=== PATIENT | female | born 1995 | race Caucasian/White ===

== ENCOUNTER → 2016-12-28 | Outpatient (CLI) | payer OTHER ==
--- NOTE | 2016-12-29 07:40 | MR ---
EXAMINATION TYPE: MR ankle LT wo con DATE OF EXAM: 12/28/2016 COMPARISON: Radiograph of the left ankle dated 11/30/2016 HISTORY: Pain and Swelling of Left Ankle x3 months Standard multiplanar, multisequence MRI departmental protocol Multiplanar, multisequence images of the left ankle were acquired. Diffusion weighted imaging was per formed. FINDINGS: LIGAMENTS: There is discontinuity of the anterior talofibular ligament with a small amount of surrounding fluid. The posterior talofibular ligament, calcaneofibular ligament, and deltoid ligam ents are intact. Spring ligament is also intact. Plantar fascia is intact and unremarkable. TENDONS: There is increased thickness, attenuation, and increased amount of surrounding synovial flui d of the flexor hallucis longus and of the peroneal brevis and longus without tear. Remaining tendons of the anterior and posterior and lateral compartments are unremarkable and intact. BONE MARROW: No evidence of bone marrow edema is seen. Vascular groove is noted within the talus. No focal fracture line is identified. Talar dome is maintained. Joint spaces are also maintained. No haseeb dence of dislocation. No evidence of osteochondral defect. No significant degenerative change. SINUS TARSI: Sinus tarsi is unremarkable with fat attenuation centrally. Subtalar joint is also withi n normal limits. SOFT TISSUES: Soft tissue swelling seen on the prior radiographs of 11/30/2016 over the lateral malle olus has resolved. No focal soft tissue swelling is noted. IMPRESSION: 1. Full-thickness tear of the anterior talofibular ligament with small amount of surrounding talotibi al joint fluid. 2. Moderate grade tenosynovitis of the flexor hallucis longus, peroneus brevis, and peroneus longus w ithout tear. 3. No evidence of focal bone marrow edema, fracture, or dislocation. 4. Localized soft tissue swelling over the lateral malleolus has resolved in the interim.
== END | disposition home or self-care (01) ==
LOC: RADMRIMAIN 14:55
PROVIDERS: ATTEND Nurse Practitioner Family
DX: S93.492A Sprain of other ligament of left ankle, initial encounter (principal); M65.872 Other synovitis and tenosynovitis, left ankle and foot

== ENCOUNTER 2020-04-13 | Outpatient (CLI) | payer OTHER ==
--- NOTE | 2020-04-14 07:32 | P.MSEPDOC ---
Presenting Problems - Arrival Data Date of Arrival on Unit: 04/13/20 Time of Arrival on Unit: 15:15 Mode of Transport: Ambulatory - Complaint OB-Reason for Admission/Chief Complaint: Rule Out SROM Comment: Pt states shes been leaking for days. Medical History - Information : 3 Para: 2 Term: 2 : 0 Abortions: Spontaneous or Elective: 0 Number of Living Children: 2 - Gestational Age Gestational Age by ZEINAB (wks/days): 35 Weeks and 4 Days - History Complications: Multiple , Smoker Review of Systems - Review of Systems Constitutional: No problems Breast: No problems ENT: No problems Cardiovascular: No problems Respiratory: No problems Gastrointestinal: No problems Genitourinary: No problems Musculoskeletal: No problems Neurological: No problems Skin: No problems Vital Signs - Temperature Temperature: 97.9 F Temperature Source: Temporal Artery Scan - Pulse Pulse Oximetery Pulse Rate: 82 Pulse Assessment Method: Pulse Oximetry - Respirations Respiratory Rate: 15 Oxygen Delivery Method: Room Air O2 Sat by Pulse Oximetry: 99 - Blood Pressure Right Arm Blood Pressure: 113/74 Blood Pressure Mean: 87 Blood Pressure Source: Automatic Cuff Medical Screen Scoring (Pre) - Cervical Exam Dilation: 1-3 cm = 1 Membranes: Intact - Uterine Contractions Frequency: Scheduled / = 6 Duration: N/A Intensity: N/A - Maternal Vital Signs Maternal Temperature: N/A Maternal Blood Pressure: N/A Signs of Preeclampsia: N/A Maternal Respirations: N/A - Maternal Trauma Maternal Trauma: N/A - Assessment - Baby A Baseline FHR: 135 Heart Rate - NICHD Category: Category I (Normal) = 0 NST: Reactive Position: N/A Station: N/A - Assessment - Baby B Baseline FHR: 130 Heart Rate - NICHD Category: Category I (Normal) = 0 NST: Reactive Position: N/A Station: N/A - Total Score - Baby A Total Score - Baby A: 7 - Total Score - Baby B Total Score - Baby B: 7 - Total Score - Baby C Total Score - Baby C: 7 - Level of Risk - Baby A Level of Risk - Baby A: Medium (6-9) - Level of Risk - Baby B Level of Risk - Baby B: Medium (6-9) - Level of Risk - Baby C Level of Risk - Baby C: Medium (6-9) Physician Notification (Pre) - Physician Notified Physician Notified Date: 04/13/20 Physician Notified Time: 16:19 New Order Received: Yes Disposition - Disposition OB Disposition: Discharge to home Discharge Date: 04/13/20 Discharge Time: 16:30 I agree with the RN Medical Screening Exam: Yes Case reviewed; plan agreed upon as documented in EMR&OBIX.: Yes Diagnosis: FALSE LABOR BEFORE 37 COMPLETED WEEKS OF GEST, THIRD TRI (Patient presented to this hospital with complaints of concern for rupture membranes for many days. She is care is with another physician at [facility] in her records are unavailable to us. Apparently she told the triage nurse reason she came to this hospital because her physician was not "doing anything for her". Evaluation here shows a twin gestation with reactive nonstress tests. Evaluation for rupture membranes was negative. Patient was not found to be in labor. My impression this is a normal twin gestation without evidence of labor or rupture of membranes. Patient was encouraged to follow up with her physician today. She was informed she is always welcome to return to this Hospital however it is in her best interest an optimal care to continue care with the physician who is been providing her with care the entire . Unfortunately that physician does not have admitting privileges to this hospital.)
== END 2020-04-13 16:30 | disposition home or self-care (01) ==
CPT/HCPCS: 59025; 84112; G0463; 99213

== ENCOUNTER 2021-02-04 19:51 | Emergency (ER) | payer OTHER ==
[2021-02-04 20:10] VITALS: RESP 18; TEMP 97.9
--- NOTE | 2021-02-04 21:54 | ED ---
General Adult HPI - General Chief complaint: Vaginal Bleeding Stated complaint: Vaginal Bleeding, Possible Miscarriage Time Seen by Provider: 02/04/21 20:53 Source: patient Mode of arrival: ambulatory - History of Present Illness Initial comments: 25 old female patient presenting to the emergency department today concerned for miscarriage after passing a large blood clot. Patient states she took her Nuva Ring out on [place]. States instead of starting her period like normal she had light spotting which is unusual for her. States tonight she started to have cramping then passed a large blood clot that looked like it might have been placenta. She took a test 1.5 month ago and it was negative, took one today and it was negative. States she is having mild cramping. Having normal amount of bleeding at this time. She is G3, P4 with one twin gestation delivered 9 months ago via . Patient denies any recent rash, fever, chills, cough, shortness of breath, chest pain, nausea, vomiting, diarrhea, constipation, back pain, numbness, tingling, dizziness, weakness, hematuria, dysuria, urinary urgency, urinary frequency, headache, visual changes, or any other complaints. - Related Data Home Medications Medication Instructions Recorded Confirmed Ferrous Sulfate [Iron] 325 mg PO DAILY 04/13/20 04/13/20 Allergies Allergy/AdvReac Type Severity Reaction Status Date / Time topiramate [From Topamax] Allergy Unknown Verified 02/04/21 20:10 Review of Systems ROS Statement: Those systems with pertinent positive or pertinent negative responses have been documented in the HPI. ROS Other: All systems not noted in ROS Statement are negative. Past Medical History Past Medical History: No Reported History History of Any Multi-Drug Resistant Organisms: None Reported Past Surgical History: Section Smoking Status: Current some day smoker Past Alcohol Use History: None Reported Past Drug Use History: Marijuana General Exam General appearance: alert, in no apparent distress, other (This is a well-devel oped, well-nourished adult female in no acute distress.) ENT exam: Present: normal exam, mucous membranes moist Respiratory exam: Present: normal lung sounds bilaterally. Absent: respiratory distress, wheezes, rales, rhonchi, stridor Cardiovascular Exam: Present: normal rhythm, tachycardia, normal heart sounds. Absent: systolic murmur, diastolic murmur, rubs, gallop, clicks Neurological exam: Present: alert, oriented X3, CN II-XII intact Psychiatric exam: Present: normal affect, normal mood Skin exam: Present: warm, dry, intact, normal color. Absent: rash Course Vital Signs 02/04/21 02/04/21 19:59 21:46 Temperature 97.9 F Pulse Rate 125 H 71 Respiratory 18 18 Rate Blood Pressure 121/85 105/80 O2 Sat by Pulse 99 95 Oximetry Medical Decision Making - Medical Decision Making 25 year-old female patient presenting after passing what appeared to be tissue from her vagina. Period was meant to started 3 days ago. Physical examination is unremarkable. Labs reviewed and showed negative hcg result. Patient reports bleeding is back to normal. She is instructed to continue nuva ring as directed. Follow up with gynecology as soon as possible. Return parameters were discussed in detail. She verbalizes understanding and agrees with this plan. My attending is Dr. Patterson. - Lab Data Result diagrams: 02/04/21 21:46 02/04/21 21:46 Lab Results 02/04/21 02/04/21 02/04/21 Range/Units 21:46 21:46 21:46 WBC 9.4 (3.8-10.6) k/uL RBC 4.77 (3.80-5.40) m/uL Hgb 13.5 (11.4-16.0) gm/dL Hct 41.5 (34.0-46.0) % MCV 86.9 (80.0-100.0) fL MCH 28.3 (25.0-35.0) pg MCHC 32.5 (31.0-37.0) g/dL RDW 13.9 (11.5-15.5) % Plt Count 307 (150-450) k/uL MPV 7.6 Neutrophils % 65 % Lymphocytes % 26 % Monocytes % 4 % Eosinophils % 3 % Basophils % 1 % Neutrophils # 6.1 (1.3-7.7) k/uL Lymphocytes # 2.5 (1.0-4.8) k/uL Monocytes # 0.4 (0-1.0) k/uL Eosinophils # 0.2 (0-0.7) k/uL Basophils # 0.1 (0-0.2) k/uL Sodium 140 (137-145) mmol/L Potassium 4.0 (3.5-5.1) mmol/L Chloride 107 (98-107) mmol/L Carbon Dioxide 23 (22-30) mmol/L Anion Gap 10 mmol/L BUN 14 (7-17) mg/dL Creatinine 0.75 (0.52-1.04) mg/dL Est GFR (CKD-EPI)AfAm >90 (>60 ml/min/1.73 sqM) Est GFR (CKD-EPI)NonAf >90 (>60 ml/min/1.73 sqM) Glucose 110 H (74-99) mg/dL Calcium 9.4 (8.4-10.2) mg/dL Total Bilirubin 0.2 (0.2-1.3) mg/dL AST 19 (14-36) U/L ALT 16 (4-34) U/L Alkaline Phosphatase 71 (38-126) U/L Total Protein 7.0 (6.3-8.2) g/dL Albumin 3.9 (3.5-5.0) g/dL HCG, Quant <2.4 mIU/mL Urine Color Yellow Urine Appearance Clear (Clear) Urine pH 6.0 (5.0-8.0) Ur Specific [place] 1.030 (1.001-1.035) Urine Protein 1+ H (Negative) Urine Glucose (UA) Negative (Negative) Urine Ketones Negative (Negative) Urine Blood Large H (Negative) Urine Nitrite Negative (Negative) Urine Bilirubin Negative (Negative) Urine Urobilinogen <2.0 (<2.0) mg/dL Ur Leukocyte Esterase Moderate H (Negative) Urine RBC >182 H (0-5) /hpf Urine WBC 25 H (0-5) /hpf Urine Mucus Rare H (None) /hpf Disposition Clinical Impression: Vaginal bleeding Disposition: HOME SELF-CARE Condition: Good Instructions (If sedation given, give patient instructions): Dysmenorrhea (ED) Additional Instructions: Follow up with gynecology for further evaluation as soon as possible. Return for any new, worsening, or concerning symptoms. Is patient prescribed a controlled substance at d/c from ED?: No Referrals: None,Stated [REFERRING] - 1-2 days Flores Ngo MD [REFERRING] - 1-2 days Time of Disposition: 22:31
[2021-02-04 21:56] LABS: Basophils # (A) 0.1 k/uL (0-0.2); Basophils % (A) 1 %; Eosinophils # (A) 0.2 k/uL (0-0.7); Eosinophils % (A) 3 %; HCT 41.5 % (34.0-46.0); HGB 13.5 gm/dL (11.4-16.0); Lymphocytes # (A) 2.5 k/uL (1.0-4.8); Lymphocytes % (A) 26 %; MCH 28.3 pg (25.0-35.0); MCHC 32.5 g/dL (31.0-37.0); MCV 86.9 fL (80.0-100.0); Mean Platelet Volume 7.6; Monocytes # (A) 0.4 k/uL (0-1.0); Monocytes % (A) 4 %; Neutrophils # (A) 6.1 k/uL (1.3-7.7); Neutrophils % (A) 65 %; Platelet Count 307 k/uL (150-450); RBC 4.77 m/uL (3.80-5.40); RDW 13.9 % (11.5-15.5); WBC 9.4 k/uL (3.8-10.6)
[2021-02-04 22:07] LABS: ALT 16 U/L (4-34); AST 19 U/L (14-36); African American GFR (CKD) >90 (>60 ml/min/1.73 sqM); Albumin 3.9 g/dL (3.5-5.0); Alkaline Phosphatase 71 U/L (38-126); Anion Gap 10 mmol/L; Blood Urea Nitrogen 14 mg/dL (7-17); Calcium 9.4 mg/dL (8.4-10.2); Carbon Dioxide 23 mmol/L (22-30); Chloride 107 mmol/L (98-107); Glucose 110 mg/dL (74-99); Non-African American GFR(CKD) >90 (>60 ml/min/1.73 sqM); Sodium 140 mmol/L (137-145); Total Bilirubin 0.2 mg/dL (0.2-1.3)
[2021-02-04 22:09] LABS: Appearance,Urine Clear (Clear); Bilirubin,Urine Negative (Negative); Blood,Urine Large (Negative); Color,Urine Yellow; Glucose,Urine (UA) Negative (Negative); Ketones,Urine Negative (Negative); Leukocyte Esterase,Urine Moderate (Negative); Mucus,Urine Rare /hpf; Nitrite,Urine Negative (Negative); Protein,Urine 1+ (Negative); RBC,Urine >182 /hpf (0-5); Urobilinogen,Urine <2.0 mg/dL (<2.0); WBC,Urine 25 /hpf (0-5)
[2021-02-04 22:26] LABS: HCG,Quantitative Serum <2.4 mIU/mL
[2021-02-04 23:03] VITALS: BP 123/86; PULSE 84
== END 2021-02-04 23:03 | disposition home or self-care (01) ==
LOC: EC 19:51
DX: N93.9 Abnormal uterine and vaginal bleeding, unspecified (principal); F17.200 Nicotine dependence, unspecified, uncomplicated; F12.90 Cannabis use, unspecified, uncomplicated
CPT/HCPCS: 36415; 80053; 81001; 84702; 85025; 87086; 99284

== ENCOUNTER 2021-02-20 21:21 | Emergency (ER) | payer OTHER ==
[2021-02-20 21:32] VITALS: BP 120/82; PULSE 96; RESP 18; TEMP 98
[2021-02-20 22:18] LABS: Basophils # (A) 0.1 k/uL (0-0.2); Basophils % (A) 1 %; Eosinophils # (A) 0.2 k/uL (0-0.7); Eosinophils % (A) 1 %; HCT 37.7 % (34.0-46.0); HGB 12.3 gm/dL (11.4-16.0); Lymphocytes # (A) 3.2 k/uL (1.0-4.8); Lymphocytes % (A) 22 %; MCHC 32.7 g/dL (31.0-37.0); MCV 85.5 fL (80.0-100.0); Mean Platelet Volume 7.3; Monocytes # (A) 0.6 k/uL (0-1.0); Monocytes % (A) 4 %; Neutrophils # (A) 10.1 k/uL (1.3-7.7); Neutrophils % (A) 70 %; Platelet Count 264 k/uL (150-450); RBC 4.41 m/uL (3.80-5.40); RDW 13.9 % (11.5-15.5); WBC 14.3 k/uL (3.8-10.6)
[2021-02-20 22:30] LABS: INR 0.9 (<1.2); Partial Thromboplastin Time 23.2 sec (22.0-30.0); Prothrombin Time 9.9 sec (9.0-12.0)
[2021-02-20 22:31] LABS: ALT 14 U/L (4-34); AST 16 U/L (14-36); African American GFR (CKD) >90 (>60 ml/min/1.73 sqM); Alkaline Phosphatase 73 U/L (38-126); Anion Gap 7 mmol/L; Blood Urea Nitrogen 18 mg/dL (7-17); Calcium 9.4 mg/dL (8.4-10.2); Carbon Dioxide 24 mmol/L (22-30); Chloride 106 mmol/L (98-107); Glucose 94 mg/dL (74-99); Non-African American GFR(CKD) >90 (>60 ml/min/1.73 sqM); Potassium 4.1 mmol/L (3.5-5.1); Sodium 137 mmol/L (137-145); Total Bilirubin 0.3 mg/dL (0.2-1.3); Total Protein 6.9 g/dL (6.3-8.2)
--- NOTE | 2021-02-20 22:38 | ED ---
GI Bleed HPI - General Chief complaint: GI Bleed Stated complaint: Rectal Bleeding,Black Stools Time Seen by Provider: 02/20/21 21:37 Source: patient Mode of arrival: ambulatory Limitations: no limitations - History of Present Illness Initial comments: 25 year-old female patient presents to the emergency department today for evaluation of rectal bleeding. States that throughout the day today when she wiped she would notice bright red blood on the toilet paper. States with her initial episode she did have a few drops in the toilet. States that this evening she had a dark stool and was instructed by friends that she should come in for evaluation. She works chronic left upper quadrant abdominal pain. States this is not new. She denies any vomiting. She does take iron tablets for history of anemia. She denies taking any Pepto-Bismol or any other medications. Denies chance of . Denies history of hemorrhoids or GI bleed. Denies frequent use of NSAIDs. Denies any alcohol use. - Related Data Home Medications Medication Instructions Recorded Confirmed Cetirizine HCl 10 mg PO DAILY PRN 02/20/21 02/20/21 Cyclobenzaprine [Flexeril] 10 mg PO HS PRN 02/20/21 02/20/21 Propranolol LA [Inderal LA] 60 mg PO DAILY 02/20/21 02/20/21 Previous Rx's Medication Instructions Recorded Pantoprazole Sodium [Protonix] 40 mg PO DAILY #30 tab 02/20/21 Allergies Allergy/AdvReac Type Severity Reaction Status Date / Time topiramate [From Topamax] Allergy Unknown Verified 02/20/21 21:47 Review of Systems ROS Statement: Those systems with pertinent positive or pertinent negative responses have been documented in the HPI. ROS Other: All systems not noted in ROS Statement are negative. Past Medical History Past Medical History: No Reported History History of Any Multi-Drug Resistant Organisms: None Reported Past Surgical History: Section Past Psychological History: No Psychological Hx Reported Smoking Status: Current some day smoker Past Alcohol Use History: None Reported Past Drug Use History: Marijuana General Exam Limitations: no limitations General appearance: alert, in no apparent distress, other (This is a well- developed, well-nourished adult female in no acute distress.) ENT exam: Present: normal exam, normal oropharynx, mucous membranes moist Respiratory exam: Present: normal lung sounds bilaterally. Absent: respiratory distress, wheezes, rales, rhonchi, stridor Cardiovascular Exam: Present: regular rate, normal rhythm, normal heart sounds. Absent: systolic murmur, diastolic murmur, rubs, gallop, clicks GI/Abdominal exam: Present: soft, normal bowel sounds. Absent: distended, tenderness, guarding, rebound, rigid Rectal exam: Present: hemorrhoids (One small hemorrhoid noted, no inflammation.) Neurological exam: Present: alert, oriented X3, CN II-XII intact Psychiatric exam: Present: normal affect, normal mood Skin exam: Present: warm, dry, intact, normal color. Absent: rash Course Vital Signs 02/20/21 21:28 Temperature 98.0 F Pulse Rate 96 Respiratory 18 Rate Blood Pressure 120/82 O2 Sat by Pulse 98 Oximetry Medical Decision Making - Medical Decision Making 25 year-old female patient presented to the emergency department for evaluation of GI bleed. Reported a small amount of bright red blood with wiping a few drops in the toilet. No dizziness or weakness. Vital signs are unremarkable. Physical examination did reveal small hemorrhoid which was not inflamed. Did perform stool occult which was positive. She'll be started on Protonix for possibility of ulcer. She states instructed follow up with GI specialist for further evaluation. Return parameters were discussed in detail. She verbalizes understanding and agrees with this plan. My attending is Dr. Dash. - Lab Data Result diagrams: 02/20/21 22:03 02/20/21 22:03 Lab Results 02/20/21 02/20/21 02/20/21 Range/Units 22:03 22:03 22:03 WBC 14.3 H (3.8-10.6) k/uL RBC 4.41 (3.80-5.40) m/uL Hgb 12.3 (11.4-16.0) gm/dL Hct 37.7 (34.0-46.0) % MCV 85.5 (80.0-100.0) fL MCH 28.0 (25.0-35.0) pg MCHC 32.7 (31.0-37.0) g/dL RDW 13.9 (11.5-15.5) % Plt Count 264 (150-450) k/uL MPV 7.3 Neutrophils % 70 % Lymphocytes % 22 % Monocytes % 4 % Eosinophils % 1 % Basophils % 1 % Neutrophils # 10.1 H (1.3-7.7) k/uL Lymphocytes # 3.2 (1.0-4.8) k/uL Monocytes # 0.6 (0-1.0) k/uL Eosinophils # 0.2 (0-0.7) k/uL Basophils # 0.1 (0-0.2) k/uL PT 9.9 (9.0-12.0) sec INR 0.9 (<1.2) APTT 23.2 (22.0-30.0) sec Sodium (137-145) mmol/L Potassium (3.5-5.1) mmol/L Chloride (98-107) mmol/L Carbon Dioxide (22-30) mmol/L Anion Gap mmol/L BUN (7-17) mg/dL Creatinine (0.52-1.04) mg/dL Est GFR (CKD-EPI)AfAm (>60 ml/min/1.73 sqM) Est GFR (CKD-EPI)NonAf (>60 ml/min/1.73 sqM) Glucose (74-99) mg/dL Calcium (8.4-10.2) mg/dL Total Bilirubin (0.2-1.3) mg/dL AST (14-36) U/L ALT (4-34) U/L Alkaline Phosphatase (38-126) U/L Total Protein (6.3-8.2) g/dL Albumin (3.5-5.0) g/dL Stool Occult Blood Positive H (Negative) 02/20/21 Range/Units 22:03 WBC (3.8-10.6) k/uL RBC (3.80-5.40) m/uL Hgb (11.4-16.0) gm/dL Hct (34.0-46.0) % MCV (80.0-100.0) fL MCH (25.0-35.0) pg MCHC (31.0-37.0) g/dL RDW (11.5-15.5) % Plt Count (150-450) k/uL MPV Neutrophils % % Lymphocytes % % Monocytes % % Eosinophils % % Basophils % % Neutrophils # (1.3-7.7) k/uL Lymphocytes # (1.0-4.8) k/uL Monocytes # (0-1.0) k/uL Eosinophils # (0-0.7) k/uL Basophils # (0-0.2) k/uL PT (9.0-12.0) sec INR (<1.2) APTT (22.0-30.0) sec Sodium 137 (137-145) mmol/L Potassium 4.1 (3.5-5.1) mmol/L Chloride 106 (98-107) mmol/L Carbon Dioxide 24 (22-30) mmol/L Anion Gap 7 mmol/L BUN 18 H (7-17) mg/dL Creatinine 0.82 (0.52-1.04) mg/dL Est GFR (CKD-EPI)AfAm >90 (>60 ml/min/1.73 sqM) Est GFR (CKD-EPI)NonAf >90 (>60 ml/min/1.73 sqM) Glucose 94 (74-99) mg/dL Calcium 9.4 (8.4-10.2) mg/dL Total Bilirubin 0.3 (0.2-1.3) mg/dL AST 16 (14-36) U/L ALT 14 (4-34) U/L Alkaline Phosphatase 73 (38-126) U/L Total Protein 6.9 (6.3-8.2) g/dL Albumin 4.0 (3.5-5.0) g/dL Stool Occult Blood (Negative) Disposition Clinical Impression: GI bleed, Hemorrhoid Disposition: HOME SELF-CARE Condition: Good Instructions (If sedation given, give patient instructions): Gastrointestinal Bleeding (ED) Additional Instructions: Take medications as directed. Follow-up with the GI specialist for further evaluation as soon as possible. Return to the emergency department for any new, worsening, or concerning symptoms. Prescriptions: Pantoprazole Sodium [Protonix] 40 mg PO DAILY #30 tab Is patient prescribed a controlled substance at d/c from ED?: No Referrals: Sadaf Arreola MD [STAFF PHYSICIAN] - 1-2 days Time of Disposition: 22:38
== END 2021-02-20 22:43 | disposition home or self-care (01) ==
LOC: EC 21:21
DX: K64.9 Unspecified hemorrhoids (principal); F17.200 Nicotine dependence, unspecified, uncomplicated; F12.90 Cannabis use, unspecified, uncomplicated
CPT/HCPCS: 36415; 80053; 82272; 85025; 85610; 85730; 99284

== ENCOUNTER 2021-02-23 17:34 | Emergency (ER) | payer OTHER ==
[2021-02-23 17:50] VITALS: BP 131/75; PULSE 102; RESP 18; TEMP 99.5
[2021-02-23] MEDS ORDERED: KETOROLAC 15 MG/ML 1 ML VIAL IM STA (20:14)
--- NOTE | 2021-02-23 20:24 | ED ---
General Adult HPI - General Chief complaint: ENT Stated complaint: Sore throat,Blood in stool Time Seen by Provider: 02/23/21 19:45 Source: patient Mode of arrival: ambulatory Limitations: no limitations - History of Present Illness Initial comments: Vicky is a 25yo female who presents to the ER for re-evaluation of sore throat and dark stools. Patient was seen last week for dark stools, she was guiaic positive but had normal vital signs and normal hemoglobin. She was referred to out patient GI but reports that our GI does not take our insurance and she see her primary care provider until April so she wasn't sure what she was posted about follow-up. In addition the patient reports she was seen in an outside hospital 2 days ago and diagnosed with strep throat, she was prescribed amoxicillin which she began taking yesterday. She states that she still has a sore throat. She has tried cough drops without taken any Tylenol or Motrin. She hasn't tried warm teaser honey. She states that her throat just hurts she doesn't want to eat or drink. - Related Data Home Medications Medication Instructions Recorded Confirmed Cetirizine HCl 10 mg PO DAILY PRN 02/20/21 02/20/21 Cyclobenzaprine [Flexeril] 10 mg PO HS PRN 02/20/21 02/20/21 Propranolol LA [Inderal LA] 60 mg PO DAILY 02/20/21 02/20/21 Previous Rx's Medication Instructions Recorded Pantoprazole Sodium [Protonix] 40 mg PO DAILY #30 tab 02/20/21 Allergies Allergy/AdvReac Type Severity Reaction Status Date / Time topiramate [From Topamax] Allergy Unknown Verified 02/23/21 17:50 Review of Systems ROS Statement: Those systems with pertinent positive or pertinent negative responses have been documented in the HPI. ROS Other: All systems not noted in ROS Statement are negative. Past Medical History Past Medical History: No Reported History History of Any Multi-Drug Resistant Organisms: None Reported Past Surgical History: Section Past Psychological History: No Psychological Hx Reported Smoking Status: Current some day smoker Past Alcohol Use History: None Reported Past Drug Use History: Marijuana General Exam - General Exam Comments Initial Comments: Physical Exam GENERAL: Patient is well-developed and well-nourished. Patient is nontoxic and well-hydrated and is in no distress. HENT: Normocephalic, Atraumatic. Tonsils are erythematous and enlarged bilaterally, there is no uvula deviation or signs of peritonsillar abscess Exudates are noted bilaterally EYES: PERRL, EOMI PULMONARY: Unlabored respirations. CARDIOVASCULAR: RRR Warm and well perfused extremities ABDOMEN: Non-distended SKIN: No rashes or bruising : Rectal exam with small external hermorrhoids Stool is light brown NEUROLOGIC: Alert and oriented Normal speech Normal gait MUSCULOSKELETAL: Moving all extremities with no apparent injury PSYCHIATRIC: No SI/HI Limitations: no limitations Course Vital Signs 02/23/21 17:43 Temperature 99.5 F Pulse Rate 102 H Respiratory 18 Rate Blood Pressure 131/75 O2 Sat by Pulse 97 Oximetry Medical Decision Making - Medical Decision Making Patient was seen and evaluated history is obtained from patient, I discussed with the patient that she needs outpatient GI follow-up if she is having persistent dark stools, she can contact her insurance provider and asked for list of GI specialist to take her insurance At this time I'm not concerned about the patient's degree of blood loss, her stool on exam is light brown Isabelle she is not hypotensive, she's not pale she appears quite well her hemoglobin the other day was 13. She reports only scant blood with wiping but is concerned because she feels her stools are dark. Patient currently has strep throat, she is less than 48 hours of antibiotic use. Exam is consistent with strep throat, there is no evidence of peritonsillar abscess. Additional supportive care measures including Tylenol, Motrin, throat spray and honey were discussed. Patient be treated with Decadron and Toradol here in the ER discharge home. Disposition Clinical Impression: Strep throat, Occult GI bleeding Disposition: HOME SELF-CARE Condition: Stable Additional Instructions: Continue your oral antibiotics as prescribed for treatment of strep throat Drink warm tea with honey as this can soothe your throat and honey has antibacterial properties Use throat spray such as chloraseptic for numbing the throat Take tylenol/motrin for pain/fever Contact your health insurance provider and request a list of GI specialists who accept your insurance to establish follow up Is patient prescribed a controlled substance at d/c from ED?: No Referrals: Migue Stafford MD [Primary Care Provider] - 1-2 days
[2021-02-23] MEDS ORDERED: DEXAMETHASONE SOD PHOSPHATE 10 MG/ML 1 ML VIAL IM STA (20:46)
== END 2021-02-23 21:03 | disposition home or self-care (01) ==
LOC: EC 17:34
DX: J02.0 Streptococcal pharyngitis (principal); K92.1 Melena; F17.200 Nicotine dependence, unspecified, uncomplicated; F12.920 Cannabis use, unspecified with intoxication, uncomplicated
CPT/HCPCS: 99284; 96372; J1885

== ENCOUNTER 2021-02-24 09:47 | Observation (INO) | payer OTHER ==
[2021-02-24] MEDS ORDERED: SODIUM CHLORIDE 0.9% 1,000 ML IV STA (10:18)
[2021-02-24] MEDS ORDERED: DEXAMETHASONE SOD PHOSPHATE 10 MG/ML 1 ML VIAL IVP STA (10:22)
[2021-02-24] MEDS ORDERED: ACETAMINOPHEN TAB 500 MG TAB PO STA (10:26)
--- NOTE | 2021-02-24 10:31 | ED ---
General Adult HPI - General Chief complaint: ENT Stated complaint: Revisit/ENT Time Seen by Provider: 02/24/21 10:01 Source: patient, RN notes reviewed Mode of arrival: ambulatory Limitations: no limitations - History of Present Illness Initial comments: This is a pleasant 25-year-old female who comes back in for reevaluation of a sore throat. Patient was seen here yesterday and stated that she was having a difficult time swallowing due to strep throat. Patient ended up going to [facility] had a computed tomography scan done of her neck. This was last night. She states she was discharged from the emergency department this morning. She states that they found a pocket of pus in her throat. She was diagnosed with a peritonsillar abscess and given follow-up with your nose and throat. However she called the ENT doctor today and could not get in. Patient presents back to the emergency department. She does state that she got IV antibiotics in the ER. Her yesterday for blood in the stool. Patient had a positive Hemoccult. However hemoglobin was stable and vital signs are stable. Patient denies any chest pain or shortness breath. No abdominal pain. Patient no longer complaining of abnormal stools today. Denies any changes in vision or hearing. No syncope. No lightheadedness. No chance of . No problems with urination. No nausea or vomiting. - Related Data Home Medications Medication Instructions Recorded Confirmed Cetirizine HCl 10 mg PO DAILY PRN 02/20/21 02/20/21 Cyclobenzaprine [Flexeril] 10 mg PO HS PRN 02/20/21 02/20/21 Propranolol LA [Inderal LA] 60 mg PO DAILY 02/20/21 02/20/21 Previous Rx's Medication Instructions Recorded Pantoprazole Sodium [Protonix] 40 mg PO DAILY #30 tab 02/20/21 Allergies Allergy/AdvReac Type Severity Reaction Status Date / Time topiramate [From Topamax] Allergy Unknown Verified 02/24/21 09:55 Review of Systems ROS Statement: Those systems with pertinent positive or pertinent negative responses have been documented in the HPI. ROS Other: All systems not noted in ROS Statement are negative. Past Medical History Past Medical History: No Reported History History of Any Multi-Drug Resistant Organisms: None Reported Past Surgical History: Section Past Psychological History: No Psychological Hx Reported Smoking Status: Current some day smoker Past Alcohol Use History: None Reported Past Drug Use History: Marijuana General Exam Limitations: no limitations General appearance: alert, in distress Head exam: Present: atraumatic, normocephalic, normal inspection Eye exam: Present: normal appearance, PERRL, EOMI. Absent: scleral icterus, conjunctival injection, periorbital swelling ENT exam: Present: normal exam, mucous membranes moist, TM's normal bilaterally, normal external ear exam Expanded Mouth exam: Present: normal external inspection. Absent: drooling, trismus, muffled voice, tongue normal, tongue elevation Teeth exam: Present: normal inspection Throat exam: tonsillar erythema, tonsillomegaly, other (Uvula is midline, no definitive evidence of peritonsillar abscess. Airway is patent). negative: tonsillar exudate, R peritonsillar mass, L peritonsillar mass Neck exam: Present: normal inspection, full ROM, lymphadenopathy. Absent: tenderness, meningismus Respiratory exam: Present: normal lung sounds bilaterally. Absent: respiratory distress, wheezes, rales, rhonchi, stridor Cardiovascular Exam: Present: regular rate, normal rhythm, normal heart sounds. Absent: systolic murmur, diastolic murmur, rubs, gallop, clicks GI/Abdominal exam: Present: soft, normal bowel sounds. Absent: distended, tenderness, guarding, rebound, rigid Extremities exam: Present: normal inspection, full ROM, normal capillary refill. Absent: tenderness, pedal edema, joint swelling, calf tenderness Back exam: Present: normal inspection Neurological exam: Present: alert, oriented X3, CN II-XII intact Psychiatric exam: Present: normal affect, normal mood Skin exam: Present: warm, dry, intact, normal color. Absent: rash Course Vital Signs 02/24/21 09:51 Temperature 98.0 F Pulse Rate 106 H Respiratory 18 Rate Blood Pressure 109/67 O2 Sat by Pulse 97 Oximetry Medical Decision Making - Medical Decision Making Case discussed with Dr. quezada who will admit the patient for consultation with ENT. Patient be admitted to observation. Patient received ceftriaxone 2 g IV piggyback here in the ER. She also received dexamethasone 10 mg IV push. COVID-19 testing will be added. Disposition Clinical Impression: Peritonsillar abscess Disposition: ADMITTED IP TO THIS HOSP Condition: Stable Referrals: Migue Stafford MD [Primary Care Provider] - 1-2 days Time of Disposition: 11:32
[2021-02-24] MEDS ORDERED: NALOXONE 0.4 MG/ML 1 ML VIAL IV PRN (11:29)
[2021-02-24] MEDS ORDERED: ONDANSETRON 4 MG/2 ML VIAL IVP PRN (11:29)
[2021-02-24] MEDS ORDERED: MORPHINE SULFATE 4 MG/ML SYRINGE IV PRN (11:29)
[2021-02-24 12:07] LABS: Basophils % (A) 0 %; Eosinophils % (A) 0 %; HCT 35.9 % (34.0-46.0); HGB 12.3 gm/dL (11.4-16.0); Lymphocytes % (A) 10 %; MCH 29.7 pg (25.0-35.0); MCHC 34.4 g/dL (31.0-37.0); MCV 86.5 fL (80.0-100.0); Mean Platelet Volume 7.1; Monocytes # (A) 0.1 k/uL (0-1.0); Monocytes % (A) 1 %; Neutrophils # (A) 9.4 k/uL (1.3-7.7); Neutrophils % (A) 88 %; Platelet Count 267 k/uL (150-450); RBC 4.15 m/uL (3.80-5.40); RDW 14.1 % (11.5-15.5); WBC 10.6 k/uL (3.8-10.6)
[2021-02-24] MEDS ORDERED: HYDROmorphone 0.5 MG/0.5 ML SYRINGE IVP PRN (12:46)
--- NOTE | 2021-02-24 13:38 | CT ---
EXAMINATION TYPE: CT neck chest w con DATE OF EXAM: 02/24/2021 COMPARISON: NONE HISTORY: Left peritonsillar abscess. Shortness of breath. CT DLP: 1068.1 mGycm. Automated Exposure Control for Dose Reduction was Utilized. TECHNIQUE: CT scan of the neck and thorax are performed following with IV Contrast, patient injected with 100 mL of Isovue 300. FINDINGS: Neck: EXAMINATION TYPE: CT neck chest w con DATE OF EXAM: 02/24/2021 HISTORY: Left peritonsillar abscess. Shortness of breath. COMPARISON: NONE CT DLP: 1068.1 mGycm. Automated Exposure Control for Dose Reduction was Utilized. TECHNIQUE: CT scan of the neck is performed with IV Contrast, patient injected with 100 mL of Isovue 300, axial images are obtained, coronal and sagittal reformatted images are reviewed. FINDINGS: Neck: Airway: Prominence of the adenoid tonsils in the posterior nasopharynx. [place] prominence base of t ongue also present. Increased soft tissue density posterior oral pharynx greater on the left where th ere is central 1.2 cm low-density area could reflect developing abscess axial image 30. Lobulated low dense material fills epiglottis could reflect secretions or laryngeal tonsillar hypertrophy. No well -formed fluid collection or drainable abscess identified. Patent nasopharyngeal airway is seen. Parotid/submandibular glands: Slight lobulated contour and asymmetric enlargement to left submandibul ar gland versus right side. Symmetric fat replaced atrophy of bilateral parotid glands. Carotid/Vascular Structures: No significant plaque or stenosis at carotid bulb level bilaterally. Poo r contrast opacification. Osseous Structures: Straightening of cervical spine. Other: No greater than 1 cm neck adenopathy. Thorax: Poor IV bolus. LUNGS: Elevated right hemidiaphragm and low lung volumes. No suspicious focal consolidation. No pleur al effusion or pneumothorax seen. MEDIASTINUM: There are no greater than 1 cm hilar or mediastinal lymph nodes. No cardiomegaly or pe ricardial effusion is seen. OTHER: No additional significant abnormality is seen. IMPRESSION: Soft tissue prominence consistent with acute tonsillitis, findings greatest left aspect w here there is 1.2 cm low-density area suspicious for ill-defined fluid. No well-formed drainable absc ess currently. Airway remains patent. Lungs are clear.
--- NOTE | 2021-02-24 13:55 | XR ---
EXAMINATION TYPE: XR chest 1V portable DATE OF EXAM: 02/24/2021 COMPARISON: None INDICATION: Pneumonia TECHNIQUE: Single frontal view of the chest is obtained. FINDINGS: The heart size is normal. The pulmonary vasculature is normal. The lungs are clear. IMPRESSION: 1. No acute pulmonary process.
[2021-02-24 14:00] LABS: ALT 20 U/L (4-34); AST 20 U/L (14-36); African American GFR (CKD) >90 (>60 ml/min/1.73 sqM); Albumin 3.6 g/dL (3.5-5.0); Albumin/Globulin Ratio 1.1; Alkaline Phosphatase 83 U/L (38-126); Anion Gap 12 mmol/L; Blood Urea Nitrogen 9 mg/dL (7-17); Calcium 8.5 mg/dL (8.4-10.2); Carbon Dioxide 16 mmol/L (22-30); Chloride 106 mmol/L (98-107); Globulin 3.2 g/dL; Glucose 130 mg/dL (74-99); Non-African American GFR(CKD) >90 (>60 ml/min/1.73 sqM); Potassium 4.1 mmol/L (3.5-5.1); Sodium 134 mmol/L (137-145); Total Bilirubin 0.9 mg/dL (0.2-1.3); Total Protein 6.8 g/dL (6.3-8.2)
[2021-02-24] MEDS: SODIUM CHLORIDE 0.9% 1,000 ML IV SCH ×2 (14:00→20:26)
--- NOTE | 2021-02-24 15:20 | HP ---
HISTORY AND PHYSICAL CHIEF COMPLAINTS: Throat pain as well as difficulty opening mouth and left neck swelling. HISTORY OF PRESENT ILLNESS: This 25-year-old woman with a past medical history of section and no other medical issues, to be followed by Dr. Migue Stafford in the outpatient setting, was complaining of throat pain as well as left-sided neck pain, difficulty in opening her mouth for the past several days. Patient apparently visited several ERs and because of lack of improvement, patient came to [facility] and was admitted for further evaluation and treatment. CBC within normal limits. Patient has possibly a peritonsillar abscess also. PAST MEDICAL HISTORY: No history of cardiovascular illness. MEDICATIONS: Medications prior to admission include Protonix and amoxicillin. ALLERGIES: TOPAMAX. FAMILY HISTORY: No history of heart disease or strokes in the family. SOCIAL HISTORY: History of smoking. History of THC. REVIEW OF SYSTEMS: ENT: As mentioned earlier. CARDIOVASCULAR SYSTEM: No angina, palpitations. RESPIRATORY SYSTEM: As mentioned earlier. GI: As mentioned earlier. : No dysuria. NERVOUS SYSTEM: No numbness, weakness. ALLERGY/IMMUNOLOGY: No asthma or hay fever. MUSCULOSKELETAL: As mentioned earlier. HEMATOLOGY/ONCOLOGY: No history of anemia. ENDOCRINE: No history of diabetes or hypothyroidism. CONSTITUTIONAL: As mentioned earlier. DERMATOLOGY: Negative. RHEUMATOLOGY: Negative. PHYSICAL EXAMINATION: Patient alert and oriented x3. Pulse 106, blood pressure 109/60, respiration 18, temperature 98 degrees, pulse ox 97% on room air. HEENT: Conjunctivae normal. Oral mucosa moist. NECK: No jugular venous distention. No carotid bruit. No lymph node enlargement. CARDIOVASCULAR: S1, S2 muffled. RESPIRATION: Breath sounds diminished at the bases. No rhonchi. No crackles. ABDOMEN: Soft, nontender. LEGS: No edema. No swelling. NERVOUS SYSTEM: No focal deficit. SKIN: No ulcer, rash, bleeding. JOINTS: No active deforming arthropathy. EXAMINATION OF THE MOUTH: Cannot open completely. Some tenderness elicited on the left tonsil area. LABS: CBC within normal limits. Neutrophils are 0.9 and 0.4. ASSESSMENT: 1. Acute peritonsillar abscess, left-sided, with significant difficulties and pain and failure of outpatient treatment. 2. History of nicotine dependence. 3. History of THC. 4. Obesity with body mass index of 36.2. 5. Neutrophilic leukocytosis. RECOMMENDATIONS AND DISCUSSION: In this 25-year-old woman who presented with multiple complex medical issues, we will monitor the patient closely. Will initiate broad-spectrum IV antibiotics. Infectious Disease. Short course of steroids. ENT evaluation. Guarded prognosis because of multiple complex medical issues. Further recommendations to follow. A copy of this dictation is being forwarded to Dr. Stafford, who is going to be the primary physician. MMODL / IJN: [id number] /
[2021-02-24 16:49] LABS: Glucose,Whole Blood 113 mg/dL (75-99)
[2021-02-24] MEDS: INSULIN ASPART (NovoLOG) 100 UNIT/ML VIAL SQ SCH ×2 (20:10→21:00)
[2021-02-24] MEDS: HEPARIN SODIUM,PORCINE/PF 5,000 UNIT/0.5 ML SYRINGE SQ SCH ×2 (20:11→21:19)
[2021-02-24] MEDS: HYDROcodone/APAP 5-325MG 1 EACH TAB PO PRN (20:14)
[2021-02-24] MEDS: AMPICILLIN-SULBACTAM 3 GM in SODIUM CHLORIDE 0.9% 100 ML IVPB SCH ×2 (20:16→23:49)
[2021-02-24] MEDS: DEXAMETHASONE SOD PHOSPHATE 4 MG/ML 1 ML VIAL IVP SCH ×2 (20:17→23:49)
[2021-02-24 20:58] LABS: Glucose,Whole Blood 121 mg/dL (75-99)
--- NOTE | 2021-02-24 23:12 | P.CONS ---
History of Present Illness - Reason for Consult Consult date: 02/24/21 peritonsillar abscess Requesting physician: Lucille Mason - Chief Complaint sore throat x few days - History of Present Illness History of present illness : Patient is a 25-year-old female presenting to the ER for evaluation of sore throat and this patient's symptoms started the day before presentation to the hospital patient complaining of difficulty swallowing for the patient was evaluated at [facility] ER where the patient did have a CT and apparently there is a pocket of pus in her throat he was diagnosed with a peritonsillar abscess and was advised to follow-up with the ENT however the patient presented to the Importantly are concerning for sore throat some difficulty swallowing no difficulty breathing no patient denies having any chest pain no cough or sputum production abdominal pain any diarrhea patient on presentation hospital was afebrile and mildly tachycardic detail normal white count with a left shift kidney function was normal, no PCR was negative urine hCG was negative patient did have a CT of the chest and neck which shows soft tissue prominence consistent with acute tonsillitis findings greatest on the left aspect with small density suspicious for ill-defined fluid no well-formed drainable abscess patient was admitted to the hospital she was given a dose of Rocephin infectious he was consulted for further management of antibiotic therapy Review of system: CONSTITUTIONAL: Positive for weakness along with the fever. EYES: As per history of present illness. ENT: No complaint. RESPIRATORY: No complaint. CARDIOVASCULAR: No complaint. GENITOURINARY: No complaint. GASTROINTESTINAL: No complaint. MUSCULOSKELETAL: No complaint. INTEGUMENTARY: No complaint. PSYCHOLOGIC: No complaint. ENDOCRINE: No complaint. NEUROLOGIC: No complaint. Past medical history : Reviewed, documented below Past surgical history : Reviewed, documented below Social history: Reviewed, documented below Medications: Reviewed, as documented below EXAMINATION: Vital sigans= Reviewed and documented below GENERAL DESCRIPTION: Middle-aged fele lying in bed, no distress. No tachypnea or accessory muscle of respiration use. HEENT: Shows Pallor , no scleral icterus. Oral mucous membrane is moist significant lodgment of the posterior pharyngeal and tonsillar area with some pus points. NECK: Trachea central, no thyromegaly. LUNGS: Unlabored breathing. Clear to auscultation anteriorly. No wheeze or crackle. HEART: S1, S2, regular rate and rhythm. ABDOMEN: Soft, no tenderness , guarding or rigidity EXTREMITIES: No edema of feet. SKIN: No rash, no masses palpable. NEUROLOGICAL: The patient is awake, alert, oriented x3, mood and affect normal. LABS AND RADIOLOGY: Reviewed results see below Assessment : Patient presented to hospital with sore throat some difficulty swallowing and this patient did have evidence of severe tonsillopharyngitis and concern for possible ill defined collection but no drainable abscess will need to cover for the polymicrobial oral karolina usually associated with this type of infection Plan: 1-start the patient on Unasyn 3 g every 6 hours 2-gentle IV fluid We will follow on clinical condition and cultures to further adjust medication if needed Thank you for this consultation we will follow the patient along with you Past Medical History Past Medical History: No Reported History History of Any Multi-Drug Resistant Organisms: None Reported Past Surgical History: Section Past Psychological History: No Psychological Hx Reported Smoking Status: Current some day smoker Past Alcohol Use History: None Reported Past Drug Use History: Marijuana Medications and Allergies Home Medications Medication Instructions Recorded Confirmed Type Pantoprazole Sodium [Protonix] 40 mg PO DAILY #30 tab 02/20/21 02/24/21 Rx Amoxicillin 500 mg PO BID 02/24/21 02/24/21 History Allergies Allergy/AdvReac Type Severity Reaction Status Date / Time topiramate [From Topamax] AdvReac shaky Verified 02/24/21 11:52 Physical Exam Vitals: Vital Signs Temp Pulse Resp BP Pulse Ox 02/24/21 09:51 98.0 F 106 H 18 109/67 97 Intake and Output 02/24/21 02/24/21 02/24/21 06:59 14:59 22:59 Other: Weight 104.78 kg Results CBC & Chem 7: 02/24/21 10:42 02/24/21 13:15 Labs: Abnormal Lab Results - Last 24 Hours (Table) 02/24/21 02/24/21 Range/Units 10:42 13:15 Neutrophils # 9.4 H (1.3-7.7) k/uL Sodium 134 L (137-145) mmol/L Carbon Dioxide 16 L (22-30) mmol/L Glucose 130 H (74-99) mg/dL
[2021-02-25] MEDS: SODIUM CHLORIDE 0.9% 1,000 ML IV SCH ×3 (03:45→19:59)
[2021-02-25] MEDS: AMPICILLIN-SULBACTAM 3 GM in SODIUM CHLORIDE 0.9% 100 ML IVPB SCH ×4 (05:55→23:11)
[2021-02-25] MEDS: DEXAMETHASONE SOD PHOSPHATE 4 MG/ML 1 ML VIAL IVP SCH ×4 (05:55→23:11)
[2021-02-25 08:12] LABS: Glucose,Whole Blood 130 mg/dL (75-99)
[2021-02-25] MEDS: HYDROcodone/APAP 5-325MG 1 EACH TAB PO PRN (08:31)
[2021-02-25] MEDS: INSULIN ASPART (NovoLOG) 100 UNIT/ML VIAL SQ SCH ×3 (08:31→21:13)
[2021-02-25] MEDS: PANTOPRAZOLE 40 MG TABLET PO SCH (08:31)
[2021-02-25] MEDS: HEPARIN SODIUM,PORCINE/PF 5,000 UNIT/0.5 ML SYRINGE SQ SCH ×2 (08:32→21:56)
[2021-02-25 10:38] LABS: Basophils # (A) 0.02 X 10*3/uL (0.00-0.10); Basophils % (A) 0.2 %; Eosinophils # (A) 0 X 10*3/uL (0.04-0.35); Eosinophils % (A) 0 %; HGB 11.3 g/dL (12.0-15.0); Lymphocytes # (A) 1.64 X 10*3/uL (0.90-5.00); Lymphocytes % (A) 13.1 %; MCH 27.4 pg (27.0-32.0); MCHC 31.4 g/dL (32.0-37.0); MCV 87.2 fL (80.0-97.0); Mean Platelet Volume 10.2 fL (9.5-12.2); Monocytes # (A) 0.51 X 10*3/uL (0.20-1.00); Monocytes % (A) 4.1 %; Neutrophils # (A) 10.26 X 10*3/uL (1.80-7.70); Neutrophils % (A) 82.1 %; Platelet Count 331 X 10*3/uL (140-440); RBC 4.13 X 10*6/uL (4.10-5.20); RDW 13.6 % (11.5-14.5); WBC 12.49 X 10*3/uL (4.50-10.00)
[2021-02-25 10:51] LABS: African American GFR (CKD) 138.6 (60.0-200.0); Anion Gap 13.3 mmol/L (10.00-18.00); BUN/Creat Ratio 13.14 Ratio (12.00-20.00); Blood Urea Nitrogen 9.2 mg/dL (9.0-27.0); Calcium 8.5 mg/dL (8.7-10.3); Carbon Dioxide 19.7 mmol/L (20.0-27.5); Non-African American GFR(CKD) 119.6 (60.0-200.0); Potassium 4.2 mmol/L (3.5-5.5)
[2021-02-25 12:17] LABS: Glucose,Whole Blood 120 mg/dL (75-99)
[2021-02-25] MEDS ORDERED: BENZOCAINE SPRAY 1 CAN MUCOUS MEM PRN (14:31)
[2021-02-25] MEDS ORDERED: BENZOCAINE/MENTHOL LOZENG 1 EACH LOZENGE MUCOUS MEM PRN (14:31)
--- NOTE | 2021-02-25 14:31 | P.PN ---
Subjective Progress Note Date: 02/25/21 02/25/2021 Patient evaluated at the bedside, she states that she is still having difficulty following respiratory effort is slightly improved. She feels a lot of the pockets must have popped and she had a foul taste in her mouth earlier today. There is still an abscess that she can feel that is causing her some pain. She is pending a consultation from ENT later this afternoon. ID is recommending one more day of IV antibiotics that she can discharge home tomorrow on orals. She can increase her diet as tolerated today. Blood pressure 104/60, afebrile, heart rate 80, 100% on room air. Abdomen is soft nontender. White count 12.49, blood sugar was 120s. ROS Constitutional: Denied any fatigue denied any fever. Cardio vascular: denied any chest pain, palpitations Gastrointestinal denied any nausea vomiting Pulmonary: Denied any shortness of breath cough Neurologic denied any new focal deficits All inpatient medications were reviewed and appropriate changes in these medications as dictated in the interval history and assessment and plan. PHYSICAL EXAMINATION: GENERAL: The patient is alert and oriented x3, not in any acute distress. Well developed, well nourished. HEENT: Pupils are round and equally reacting to light. EOMI. No scleral icterus. No conjunctival pallor. Normocephalic, atraumatic. No thyromegaly. Tender to palpation along lymphnodes on left. CARDIOVASCULAR: S1 and S2 present. No murmurs, rubs, or gallops. PULMONARY: Chest is clear to auscultation, no wheezing or crackles. ABDOMEN: Soft, nontender, nondistended, normoactive bowel sounds. No palpable organomegaly. MUSCULOSKELETAL: No joint swelling or deformity. EXTREMITIES: No cyanosis, clubbing, or pedal edema. NEUROLOGICAL: Gross neurological examination did not reveal any focal deficits. SKIN: No rashes. Assessment and plan Assessment Acute peritonsillar abscess, left-sided failure outpatient treatment Leukocytosis secondary to above History of nicotine dependence History of THC Obesity Focal Plan ID consultation, ENT consultation Continue IV antibiotics Add lozenges, and benzocaine spray for symptomatic tx a Increase diet as tolerated Repeat CBC in a.m. Discharge tomorrow on oral antibiotics Objective - Vital Signs Vital signs: Vital Signs Temp 98.1 F 02/25/21 07:00 Pulse 80 02/25/21 07:00 Resp 18 02/25/21 07:00 BP 104/60 02/25/21 07:00 Pulse Ox 98 02/25/21 11:29 Intake & Output 02/24/21 02/25/21 02/25/21 18:59 06:59 18:59 Weight 104.78 kg 104.78 kg Other: Voiding Method Toilet # Voids 2 - Labs CBC & Chem 7: 02/25/21 06:50 02/25/21 06:50 Labs: Abnormal Lab Results - Last 24 Hours (Table) 02/24/21 02/24/21 02/25/21 Range/Units 16:46 20:57 06:50 WBC 12.49 H (4.50-10.00) X 10*3/uL Hgb 11.3 L (12.0-15.0) g/dL Hct 36.0 L (37.2-46.3) % MCHC 31.4 L (32.0-37.0) g/dL Immature Gran # 0.06 H (0.00-0.04) X 10*3/uL Neutrophils # 10.26 H (1.80-7.70) X 10*3/uL Eosinophils # 0 L (0.04-0.35) X 10*3/uL Carbon Dioxide (20.0-27.5) mmol/L Glucose (70-110) mg/dL POC Glucose (mg/dL) 113 H 121 H (75-99) mg/dL Calcium (8.7-10.3) mg/dL 02/25/21 02/25/21 02/25/21 Range/Units 06:50 08:10 12:13 WBC (4.50-10.00) X 10*3/uL Hgb (12.0-15.0) g/dL Hct (37.2-46.3) % MCHC (32.0-37.0) g/dL Immature Gran # (0.00-0.04) X 10*3/uL Neutrophils # (1.80-7.70) X 10*3/uL Eosinophils # (0.04-0.35) X 10*3/uL Carbon Dioxide 19.7 L (20.0-27.5) mmol/L Glucose 127 H (70-110) mg/dL POC Glucose (mg/dL) 130 H 120 H (75-99) mg/dL Calcium 8.5 L (8.7-10.3) mg/dL
[2021-02-25 17:27] LABS: Glucose,Whole Blood 152 mg/dL (75-99)
--- NOTE | 2021-02-25 20:01 | P.GSCN ---
History of Present Illness Consult date: 02/25/21 Reason for Consult: Throat pain Requesting physician: Anita Kim History of present illness: This patient is a 25-year-old white female with a 4 day history of a sore throat. She went to the emergency room at [facility] and was diagnosed with tonsillitis and possible peritonsillar abscess. She was to be sent to my office. She left the hospital AMA. She never came to my office. She instead went to the emergency room here at [facility] and was admitted. She been on antibiotics and steroids since admission yesterday. She tells me she is markedly improved and she is swallowing fine. Her throat pain is 90% better. I did review the results of the patient's CAT scan and his no definable abscess. There is an area of cellulitis with possible evolving abscess. This is a very small area measuring only 1.2 cm. This is on the left side. She is eating well drinking well her pain is minimal and she is in good spirits and giggling and happy. She denies any other symptoms. Review of Systems - Constitutional Reports fever - EENT Ears, nose, mouth and throat: Reports swelling in throat - Cardiovascular Reports as per HPI - Respiratory Reports as per HPI - Gastrointestinal Reports as per HPI - Genitourinary Genitourinary: Reports as per HPI Menstruation: Reports as per HPI - Musculoskeletal Reports as per HPI - Integumentary Reports as per HPI - Neurological Reports as per HPI - Psychiatric Reports as per HPI - Endocrine Reports as per HPI - Hematologic/Lymphatic Reports as per HPI - Allergic/Immunologic Reports as per HPI Past Medical History Past Medical History: No Reported History History of Any Multi-Drug Resistant Organisms: None Reported Past Surgical History: Section Past Psychological History: No Psychological Hx Reported Smoking Status: Current some day smoker Past Alcohol Use History: None Reported Past Drug Use History: Marijuana Medications and Allergies Home Medications Medication Instructions Recorded Confirmed Type Pantoprazole Sodium [Protonix] 40 mg PO DAILY #30 tab 02/20/21 02/24/21 Rx Amoxicillin 500 mg PO BID 02/24/21 02/24/21 History Allergies Allergy/AdvReac Type Severity Reaction Status Date / Time topiramate [From Topamax] AdvReac jose raul Verified 02/24/21 11:52 Surgical - Exam Osteopathic Statement: *. No significant issues noted on an osteopathic structural exam other than those noted in the History and Physical/Consult. Vital Signs Temp Pulse Resp BP Pulse Ox 98.0 F 106 H 18 109/67 97 02/24/21 09:51 02/24/21 09:51 02/24/21 09:51 02/24/21 09:51 02/24/21 09:51 - General Mild discomfort well developed, well nourished, obese - Eyes PERRL, normal ocular movement - ENT Left tonsil slightly enlarged and erythematous. No bulging noted no evidence of peritonsillar abscess noted. No deformity of the palate. Left tonsil slightly enlarged. normal pinna, normal nares, normal mucosa, no hearing loss, no congestion - Neck no masses, no bruits, trachea midline thyroid nodule: absent, lymphadenopathy: bilateral (Mild nonspecific), carotid bruit: absent - Respiratory normal expansion, normal respiratory effort - Integumentary no rash, no growths - Neurologic normal coordination, normal sensation - Musculoskeletal normal posture - Psychiatric oriented to time, oriented to person, oriented to place, speech is normal, memory intact Results - Labs 02/25/21 06:50 02/25/21 06:50 Abnormal Lab Results - Last 24 Hours (Table) 02/24/21 02/25/21 02/25/21 Range/Units 20:57 06:50 06:50 WBC 12.49 H (4.50-10.00) X 10*3/uL Hgb 11.3 L (12.0-15.0) g/dL Hct 36.0 L (37.2-46.3) % MCHC 31.4 L (32.0-37.0) g/dL Immature Gran # 0.06 H (0.00-0.04) X 10*3/uL Neutrophils # 10.26 H (1.80-7.70) X 10*3/uL Eosinophils # 0 L (0.04-0.35) X 10*3/uL Carbon Dioxide 19.7 L (20.0-27.5) mmol/L Glucose 127 H (70-110) mg/dL POC Glucose (mg/dL) 121 H (75-99) mg/dL Calcium 8.5 L (8.7-10.3) mg/dL 02/25/21 02/25/21 02/25/21 Range/Units 08:10 12:13 17:14 WBC (4.50-10.00) X 10*3/uL Hgb (12.0-15.0) g/dL Hct (37.2-46.3) % MCHC (32.0-37.0) g/dL Immature Gran # (0.00-0.04) X 10*3/uL Neutrophils # (1.80-7.70) X 10*3/uL Eosinophils # (0.04-0.35) X 10*3/uL Carbon Dioxide (20.0-27.5) mmol/L Glucose (70-110) mg/dL POC Glucose (mg/dL) 130 H 120 H 152 H (75-99) mg/dL Calcium (8.7-10.3) mg/dL Microbiology - Last 24 Hours (Table) 02/24/21 13:15 Blood Culture - Preliminary Blood No Growth after 24 hours Diabetes panel 02/25/21 Range/Units 06:50 Sodium 140 (135-145) mmol/L Potassium 4.2 (3.5-5.5) mmol/L Chloride 107 (96-109) mmol/L Carbon Dioxide 19.7 L (20.0-27.5) mmol/L BUN 9.2 (9.0-27.0) mg/dL Creatinine 0.7 (0.6-1.5) mg/dL Glucose 127 H (70-110) mg/dL Calcium 8.5 L (8.7-10.3) mg/dL Calcium panel 02/25/21 Range/Units 06:50 Calcium 8.5 L (8.7-10.3) mg/dL Pituitary panel 02/25/21 Range/Units 06:50 Sodium 140 (135-145) mmol/L Potassium 4.2 (3.5-5.5) mmol/L Chloride 107 (96-109) mmol/L Carbon Dioxide 19.7 L (20.0-27.5) mmol/L BUN 9.2 (9.0-27.0) mg/dL Creatinine 0.7 (0.6-1.5) mg/dL Glucose 127 H (70-110) mg/dL Calcium 8.5 L (8.7-10.3) mg/dL Adrenal panel 02/25/21 Range/Units 06:50 Sodium 140 (135-145) mmol/L Potassium 4.2 (3.5-5.5) mmol/L Chloride 107 (96-109) mmol/L Carbon Dioxide 19.7 L (20.0-27.5) mmol/L BUN 9.2 (9.0-27.0) mg/dL Creatinine 0.7 (0.6-1.5) mg/dL Glucose 127 H (70-110) mg/dL Calcium 8.5 L (8.7-10.3) mg/dL Assessment and Plan (1) Acute tonsillitis Current Visit: Yes Status: Acute Code(s): J03.90 - ACUTE TONSILLITIS, UNSPECIFIED SNOMED Code(s): 83929288 (2) Peritonsillar cellulitis Current Visit: Yes Status: Acute Code(s): J36 - PERITONSILLAR ABSCESS SNOMED Code(s): 433164576 Plan: This patient developed left side acute tonsillitis with some peritonsillar cellulitis. Over the last 48 hours she is a remarkable improvement in tells me that her pain is reduced by 90%. I reviewed the CAT scan and I do not see definitive abscess I do note a left peritonsillar cellulitis. No surgical procedures necessary. I would continue antibiotic and steroid therapy and continue this as an outpatient after discharge. I've given her my card and she can follow up with me on an as-needed basis. Time with Patient: Greater than 30
[2021-02-25 20:41] LABS: Glucose,Whole Blood 119 mg/dL (75-99)
[2021-02-26] MEDS: SODIUM CHLORIDE 0.9% 1,000 ML IV SCH ×2 (04:10→12:39)
[2021-02-26] MEDS: DEXAMETHASONE SOD PHOSPHATE 4 MG/ML 1 ML VIAL IVP SCH ×2 (06:06→12:44)
[2021-02-26 07:24] LABS: Glucose,Whole Blood 121 mg/dL (75-99)
[2021-02-26 08:05] VITALS: BP 110/70; PULSE 52; RESP 18; TEMP 98.1
--- NOTE | 2021-02-26 10:48 | P.PN ---
Subjective Progress Note Date: 02/25/21 Principal diagnosis: Acute pharyngitis and question of peritonsillar abscess Patient is a 25-year-old female presented to hospital with significant sore throat difficulty swallowing in this patient has been diagnosed with severe pharyngitis and question of peritonsillar abscess. On today's evaluation that is 02/25/2021 the patient denies having any fever or chills the patient sore throat has slightly decreased in intensity but denies having any nausea no vomiting no abdominal pain and no diarrhea Objective - Vital Signs Vital signs: Vital Signs Temp 98.1 F 02/26/21 07:00 Pulse 52 L 02/26/21 07:00 Resp 18 02/26/21 07:00 BP 110/70 02/26/21 07:00 Pulse Ox 98 02/26/21 07:00 Intake & Output 02/25/21 02/26/21 02/26/21 18:59 06:59 18:59 Intake Total 120 Balance 120 Intake: Oral 120 Other: # Voids 1 1 - Exam GENERAL DESCRIPTION: Middle-aged female lying in bed, no distress. No tachypnea or accessory muscle of respiration use. HEENT: Pharyngeal swelling redness no drainage LUNGS: Unlabored breathing. Clear to auscultation anteriorly. No wheeze or crackle. HEART: S1, S2, regular rate and rhythm. No loud murmur ABDOMEN: Soft, no tenderness , guarding or rigidity, no organomegaly EXTREMITIES: No edema of feet. - Labs CBC & Chem 7: 02/25/21 06:50 02/25/21 06:50 Labs: Abnormal Lab Results - Last 24 Hours (Table) 02/25/21 02/25/21 02/25/21 Range/Units 06:50 12:13 17:14 Carbon Dioxide 19.7 L (20.0-27.5) mmol/L Glucose 127 H (70-110) mg/dL POC Glucose (mg/dL) 120 H 152 H (75-99) mg/dL Calcium 8.5 L (8.7-10.3) mg/dL 02/25/21 02/26/21 Range/Units 20:39 07:10 Carbon Dioxide (20.0-27.5) mmol/L Glucose (70-110) mg/dL POC Glucose (mg/dL) 119 H 121 H (75-99) mg/dL Calcium (8.7-10.3) mg/dL Microbiology - Last 24 Hours (Table) 02/24/21 13:15 Blood Culture - Preliminary Blood No Growth after 24 hours Assessment and Plan Assessment: Patient presented to hospital with significant sore throat difficulty swallowing and this patient has been diagnosed with a severe pharyngitis and a question of very tonsillar abscess ENT evaluation is pending, patient to continue with Unasyn in view of clinical response and monitor clinical course closely Time with Patient: Less than 30
--- NOTE | 2021-02-26 10:50 | P.PN ---
Subjective Progress Note Date: 02/26/21 Principal diagnosis: Acute pharyngitis and question of peritonsillar abscess Patient is a 25-year-old female presented to hospital with significant sore throat difficulty swallowing in this patient has been diagnosed with severe pharyngitis and question of peritonsillar abscess. On today's evaluation that is 02/26/2021 the patient The patient remains to be afebrile, the patient mention overall improvement in her sore throat and is able to swallow denies any difficulty breathing no chest pain no cough no abdominal pain and no diarrhea Objective - Vital Signs Vital signs: Vital Signs Temp 98.1 F 02/26/21 07:00 Pulse 52 L 02/26/21 07:00 Resp 18 02/26/21 07:00 BP 110/70 02/26/21 07:00 Pulse Ox 98 02/26/21 07:00 Intake & Output 02/25/21 02/26/21 02/26/21 18:59 06:59 18:59 Intake Total 120 Balance 120 Intake: Oral 120 Other: # Voids 1 1 - Exam GENERAL DESCRIPTION: Middle-aged female lying in bed, no distress. No tachypnea or accessory muscle of respiration use. HEENT: Pharyngeal swelling redness no drainage LUNGS: Unlabored breathing. Clear to auscultation anteriorly. No wheeze or crackle. HEART: S1, S2, regular rate and rhythm. No loud murmur ABDOMEN: Soft, no tenderness , guarding or rigidity, no organomegaly EXTREMITIES: No edema of feet. - Labs CBC & Chem 7: 02/25/21 06:50 02/25/21 06:50 Labs: Abnormal Lab Results - Last 24 Hours (Table) 02/25/21 02/25/21 02/25/21 Range/Units 06:50 12:13 17:14 Carbon Dioxide 19.7 L (20.0-27.5) mmol/L Glucose 127 H (70-110) mg/dL POC Glucose (mg/dL) 120 H 152 H (75-99) mg/dL Calcium 8.5 L (8.7-10.3) mg/dL 02/25/21 02/26/21 Range/Units 20:39 07:10 Carbon Dioxide (20.0-27.5) mmol/L Glucose (70-110) mg/dL POC Glucose (mg/dL) 119 H 121 H (75-99) mg/dL Calcium (8.7-10.3) mg/dL Microbiology - Last 24 Hours (Table) 02/24/21 13:15 Blood Culture - Preliminary Blood No Growth after 24 hours Assessment and Plan Assessment: Patient presented to hospital with significant sore throat difficulty swallowing and this patient has been diagnosed with a severe pharyngitis and a question of very tonsillar abscess ENT Has seen the patient and no concern for an abscess or drainage patient has clinically improved on Unasyn to finish therapy with oral Augmentin a significant twice daily for 10 days and close outpatient follow-up discussed with the nurse practitioner for admitting team working on discharge
[2021-02-26] MEDS: INSULIN ASPART (NovoLOG) 100 UNIT/ML VIAL SQ SCH ×2 (10:52→12:43)
[2021-02-26] MEDS: HEPARIN SODIUM,PORCINE/PF 5,000 UNIT/0.5 ML SYRINGE SQ SCH (10:56)
[2021-02-26] MEDS: AMPICILLIN-SULBACTAM 3 GM in SODIUM CHLORIDE 0.9% 100 ML IVPB SCH ×2 (10:56→12:44)
[2021-02-26] MEDS: PANTOPRAZOLE 40 MG TABLET PO SCH (10:56)
[2021-02-26 12:18] LABS: Glucose,Whole Blood 189 mg/dL (75-99)
--- NOTE | 2021-02-27 21:46 | P.DS ---
Providers Date of admission: 02/24/21 12:00 Attending physician: Ibrahima Givens MD Consults: 02/24/21 11:29 Consult Physician Urgent Consulting Provider: Rocco Saleh Consult Reason/Comments: Peritonsillar abscess Do you want consulting provider notified?: Yes 02/24/21 12:03 Consult Physician Urgent Consulting Provider: Anita Kim Consult Reason/Comments: Peritonsillar abscess Do you want consulting provider notified?: Yes Primary care physician: Migue Stafford Hospital Course: Final Diagnosis Acute peritonsillar cellulitis with possiblee abscess and acute tonsillitis Leukocytosis secondary to above History of nicotine dependence History of THC Obesity Discharge Disposition Patient stable for discharge on oral antibiotics. No intervention planned to drain tonsillar abscess. Follow up with Dr Saleh and Dr Stafford. Hospital Course This is a pleasant 25 year old female who reports to the hospital for reevaluation for sore throat. Patient was evaluated in the EC yesterday and stated that she was having a difficult time swallowing due to strep throat. [facility] completed a CT scan of her neck, she stated they found a pocket of pus in her throat and discharged her on 02/24/2021 and she came to [facility] shortly after. Patient did receive IV antibiotics in the EC at [facility] and to f/u with an ENT. Shd did have blood in the stool with positive hemoccult. Hemoglobin is stable at 12.3, 11.3. WBC stable at 10.6, slightly increased to 12.49. Sodium on admission 134, CO2 16, glucose 130. Urine HCG negative, aguila virus PCR negative. Blood cultures are negative. Patient has remained afebrile with temp of 98.1, heart rate 60's sinus rhythm, blood pressure 110/70, and 98% on room air. -Neck/chest CT shows acute tonsillitis with 1.2 cm low density area suspicious for ill defined fluid. No well formed drainable abscess currently. Airways patent, lungs are clear. Patient was evaluated by ID who started the patient on IV unasyn. ENT con sultation completed at the bedside which revealed left tonsil slightly enlarged and erythematous. Reviewed imaging and there is no surgical intervention planned and to continue steroids and antibiotics outpatient and to follow up in the office with ENT. Patient discharged on oral augmentin and steroid taper. 02/26/2021 Patient evaluated at bedside, swallowing is improved, pain is improving. Agre eable to discharge plan. Denies chest pain, cough, shortness of breath. Denies congestion, jaw pain, ear pain. Denies nausea vomiting or diarrhea. Lungs are clear, S1 and S2 auscultated. Vitals are stable, labs are stable, sodium level improved to 140. She is stable for discharge to follow up with primary care and ENT. Please see medication reconciliation. Thank you for allowing us to participate in the care of this patient. Patient Condition at Discharge: Stable Plan - Discharge Summary New Discharge Prescriptions: New Amoxic-Pot Clav 875-125Mg [Augmentin 875-125] 1 tab PO BID 7 Days #14 tab Benzocaine/Menthol Lozeng [Cepacol lozenge] 1 each MUCOUS MEM Q4HR PRN lozenge PRN Reason: Sore Throat Benzocaine [place] [Hurricaine [place]] 1 spray MUCOUS MEM QID PRN PRN Reason: Mouth Irritation methylPREDNISolone Dose Pack [Medrol Dose Pack] 4 mg PO DIRECTED #21 tab Continue Pantoprazole Sodium [Protonix] 40 mg PO DAILY #30 tab Discontinued Amoxicillin 500 mg PO BID Discharge Medication List Pantoprazole Sodium [Protonix] 40 mg PO DAILY #30 tab 02/20/21 [Rx] Amoxic-Pot Clav 875-125Mg [Augmentin 875-125] 1 tab PO BID 7 Days #14 tab 02/26/21 [Rx] Benzocaine [place] [Hurricaine [place]] 1 spray MUCOUS MEM QID PRN 02/26/21 [Rx] Benzocaine/Menthol Lozeng [Cepacol lozenge] 1 each MUCOUS MEM Q4HR PRN lozenge 02/26/21 [Rx] methylPREDNISolone Dose Pack [Medrol Dose Pack] 4 mg PO DIRECTED #21 tab 02/26/21 [Rx] Follow up Appointment(s)/Referral(s): Migue Stafford MD [Primary Care Provider] - 1-2 days Rococ Saleh DO [Doctor of Osteopathic Medicine] - 1 Week Ambulatory/Diagnostic Orders: Complete Blood Count w/diff [LAB.AMB] Time Frame: 3 Days, Location: None Selected Patient Instructions/Handouts: Peritonsillar Abscess (DC) Activity/Diet/Wound Care/Special Instructions: Patient can use over the counter tylenol or motrin for pain management Continue with benzocaine spray and lozenges as needed Increase oral intake Discharge Disposition: HOME SELF-CARE
== END 2021-02-26 13:12 | disposition home or self-care (01) ==
LOC: EC 09:47 → 6NMEDSUR 12:00
PROVIDERS: ADMIT Internal Medicine; ATTEND Internal Medicine
DX: J36 Peritonsillar abscess (principal); K92.1 Melena; J02.0 Streptococcal pharyngitis; E66.9 Obesity, unspecified; Z68.36 Body mass index [BMI] 36.0-36.9, adult; F17.200 Nicotine dependence, unspecified, uncomplicated; Z79.899 Other long term (current) drug therapy; Z88.8 Allergy status to other drugs, medicaments and biological substances; Z98.891 History of uterine scar from previous surgery; Z20.822 Contact with and (suspected) exposure to COVID-19
CPT/HCPCS: 96376 ×4; 96361 ×3; 96366 ×3; 96372 ×3; 96365; 96375; 99285; 36415; 80053; 80048; 85025 ×2; 81025; 87040; 87635; 71045; 70491; 71260; G0378 ×3; J1100 ×4; J0696; J0295 ×3; Q9967; J1644 ×3

== ENCOUNTER → 2021-03-28 | Outpatient (CLI) | payer OTHER ==
--- NOTE | 2021-03-28 12:29 | XR ---
EXAMINATION TYPE: XR lumbar spine 2 or 3V DATE OF EXAM: 03/28/2021 CLINICAL HISTORY: pain TECHNIQUE: Three views of the lumbar spine are submitted. COMPARISON: None. FINDINGS: There are 5 lumbar type vertebral bodies identified. The lumbar spine shows satisfactory alignment w ithout evidence of acute fracture or dislocation. Vertebral body heights are within normal limits. Disc spaces are within normal limits. The overlying soft tissue appears unremarkable. IMPRESSION: No acute fracture or dislocation is seen in the lumbar spine. ICD 10 NO FRACTURE, INITIAL EVALUATION
== END | disposition home or self-care (01) ==
LOC: RADXRMAIN 12:11
PROVIDERS: ATTEND Family Medicine
DX: M54.50 Low back pain, unspecified (principal)
CPT/HCPCS: 72100

== ENCOUNTER 2021-08-12 10:25 | Emergency (ER) | payer OTHER ==
[2021-08-12 10:30] VITALS: BP 124/82; PULSE 90; RESP 18; TEMP 98.2
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
--- NOTE | 2021-08-12 11:26 | XR ---
EXAMINATION TYPE: XR ankle complete 3 views LT DATE OF EXAM: 08/12/2021 Comparison: 11/30/2016 Clinical History: 26-year-old female pain swelling Findings: Circumferential soft tissue swelling. Mild degenerative spurring about the tibiotalar joint. Small co rticated ossific densities below both medial and lateral malleoli suggesting sequela of remote injuri es. Ankle mortise remains congruent. Talar dome is intact. Preservation of the distal tibia-fibula ov erlap. No acute fracture, subluxation, dislocation. Small plantar heel spur. Impression: Circumferential soft tissue swelling. Small corticated densities below both malleoli compatible with sequela of old injuries. No acute osseous abnormality seen.
== END 2021-08-12 12:10 | disposition home or self-care (01) ==
LOC: EC 10:25
DX: S93.402A Sprain of unspecified ligament of left ankle, initial encounter (principal); F17.200 Nicotine dependence, unspecified, uncomplicated; Z88.8 Allergy status to other drugs, medicaments and biological substances; W19.XXXA Unspecified fall, initial encounter; Y93.01 Activity, walking, marching and hiking
CPT/HCPCS: 29125; 99283

== ENCOUNTER → 2021-08-30 | Outpatient (CLI) | payer OTHER ==
--- NOTE | 2021-08-30 12:46 | XR ---
EXAMINATION TYPE: XR ankle complete LT DATE OF EXAM: 08/30/2021 12:27 PM INDICATION: Patient age:Female; 26 years old; Reason for study: [id number]; COMPARISON: None TECHNIQUE: The left ankle is imaged in frontal, lateral and oblique projections. FINDINGS: There is no evidence of acute osseous pathology. The joint spaces are well-preserved without evidenc e of subluxation or dislocation. Kager's fat pad is intact. Mild soft tissue swelling around the ankl e. No radiopaque foreign bodies are identified. Plantar calcaneal spur. Remote injury around the delt oid ligament with well-corticated dictated osseous body. IMPRESSION: 1. No evidence of acute fracture. 2. Subcutaneous swelling around the ankle likely secondary to underlying soft tissue injury.
== END | disposition home or self-care (01) ==
LOC: RADXRMAIN 11:30
PROVIDERS: ATTEND Family Medicine
DX: S93.402D Sprain of unspecified ligament of left ankle, subsequent encounter (principal)

== ENCOUNTER 2022-01-06 14:52 | Emergency (ER) | payer OTHER ==
[2022-01-06 15:25] VITALS: TEMP 98.4
[2022-01-06 15:51] LABS: Basophils # (A) 0.1 k/uL (0-0.2); Basophils % (A) 1 %; Eosinophils # (A) 0.2 k/uL (0-0.7); Eosinophils % (A) 1 %; HCT 41.6 % (34.0-46.0); Lymphocytes # (A) 2.5 k/uL (1.0-4.8); Lymphocytes % (A) 22 %; MCH 28.8 pg (25.0-35.0); MCHC 33.6 g/dL (31.0-37.0); MCV 85.8 fL (80.0-100.0); Mean Platelet Volume 7.6; Monocytes # (A) 0.4 k/uL (0-1.0); Monocytes % (A) 4 %; Neutrophils # (A) 7.7 k/uL (1.3-7.7); Neutrophils % (A) 71 %; Platelet Count 306 k/uL (150-450); RBC 4.85 m/uL (3.80-5.40); RDW 13.4 % (11.5-15.5); WBC 10.9 k/uL (3.8-10.6)
[2022-01-06 16:04] LABS: ALT 17 U/L (4-34); AST 18 U/L (14-36); African American GFR (CKD) >90 (>60 ml/min/1.73 sqM); Albumin 4.7 g/dL (3.5-5.0); Alkaline Phosphatase 72 U/L (38-126); Anion Gap 8 mmol/L; Blood Urea Nitrogen 13 mg/dL (7-17); Calcium 9.4 mg/dL (8.4-10.2); Carbon Dioxide 25 mmol/L (22-30); Chloride 106 mmol/L (98-107); Glucose 101 mg/dL (74-99); Magnesium 2.1 mg/dL (1.6-2.3); Non-African American GFR(CKD) >90 (>60 ml/min/1.73 sqM); Partial Thromboplastin Time 27.1 sec (22.0-30.0); Potassium 4.2 mmol/L (3.5-5.1); Prothrombin Time 10.5 sec (9.0-12.0); Sodium 139 mmol/L (137-145); Total Bilirubin 0.5 mg/dL (0.2-1.3); Total Protein 7.3 g/dL (6.3-8.2)
--- NOTE | 2022-01-06 20:15 | ED ---
GI Bleed HPI - General Chief complaint: GI Bleed Stated complaint: Rectal Bleeding Time Seen by Provider: 01/06/22 19:55 Source: patient, RN notes reviewed Mode of arrival: ambulatory Limitations: no limitations - History of Present Illness Initial comments: This is a pleasant 26-year-old female comes to the ER complaining of 2 days of bright red blood after having a bowel movement. Patient states she is getting a few drops of bright red bleeding. She noticed it on the toilet paper and in the toilet. Denying any other symptoms. No headache, no fever or chills, no changes in vision or hearing, no sore throat or difficulty with speech, no neck pain, no chest pain or shortness of breath, no abdominal pain, no nausea or vomiting, no changes in urination, no numbness or tingling, no extremity pain, no skin rashes or lesions. Past medical, surgical, social, and family history reviewed. Patient also states she had a faint positive test despite having an IUD since March. Denying any vaginal bleeding. - Related Data Previous Rx's Medication Instructions Recorded Ibuprofen [Motrin] 800 mg PO Q8H 10 Days #30 tab 08/12/21 Ondansetron Odt [Zofran Odt] 4 mg PO Q8HR PRN #20 tab 09/26/21 Hydrocortisone Suppository 25 mg RECTAL DAILY #9 suppositor 01/06/22 [Anusol-Hc] Allergies Allergy/AdvReac Type Severity Reaction Status Date / Time topiramate [From Topamax] AdvReac Body goes Verified 09/25/21 22:30 numb Review of Systems ROS Statement: Those systems with pertinent positive or pertinent negative responses have been documented in the HPI. ROS Other: All systems not noted in ROS Statement are negative. Past Medical History Past Medical History: No Reported History History of Any Multi-Drug Resistant Organisms: None Reported Past Surgical History: Section, Tonsillectomy Additional Past Surgical History / Comment(s): nose Past Psychological History: No Psychological Hx Reported Smoking Status: Current some day smoker Past Alcohol Use History: None Reported Past Drug Use History: Marijuana General Exam Limitations: no limitations General appearance: alert, in no apparent distress Head exam: Present: atraumatic, normocephalic, normal inspection Eye exam: Present: normal appearance, PERRL, EOMI. Absent: scleral icterus, conjunctival injection, periorbital swelling ENT exam: Present: normal exam, mucous membranes moist Neck exam: Present: normal inspection, full ROM. Absent: tenderness, meningismus, lymphadenopathy Respiratory exam: Present: normal lung sounds bilaterally. Absent: respiratory distress, wheezes, rales, rhonchi, stridor Cardiovascular Exam: Present: regular rate, normal rhythm, normal heart sounds. Absent: systolic murmur, diastolic murmur, rubs, gallop, clicks GI/Abdominal exam: Present: soft, normal bowel sounds. Absent: distended, tenderness, guarding, rebound, rigid Rectal exam: Present: normal inspection, normal rectal tone, heme (-) stool, other (Chaperoned by female RN). Absent: decreased rectal tone Extremities exam: Present: normal inspection, full ROM, normal capillary refill. Absent: tenderness, pedal edema, joint swelling, calf tenderness Back exam: Present: normal inspection Neurological exam: Present: alert, oriented X3, CN II-XII intact Psychiatric exam: Present: normal affect, normal mood Skin exam: Present: warm, dry, intact, normal color. Absent: rash Course Vital Signs 01/06/22 15:21 Temperature 98.4 F Pulse Rate 77 Respiratory 16 Rate Blood Pressure 126/63 O2 Sat by Pulse 97 Oximetry - Reevaluation(s) Reevaluation #1: 01/06/22 20:53 Medical record is reviewed Symptoms are improved here in the emergency department Patient is informed of results and questions answered Patient in no distress Medical Decision Making - Medical Decision Making Patient denies any rectal trauma. Given the patient's condition I suspect the patient has an internal hemorrhoid. Other etiologies such as a no fissure less likely. Does not appear to be consistent with diverticulosis. Patient has only a small amount of bleeding only after bowel movements. I suspect patient may have a mild internal hemorrhoid. Patient has a negative Hemoccult at this time. Patient hemodynamically stable. Remainder patient's workup is essentially negative. Patient was told to return to the ER for any signs or symptoms worsen. Told to return immediately if any other problems arise. All questions answered. Treatment plan discussed. Patient in agreement Every effort has been made to ensure accuracy of this dictation. However, due to the limitations of electronic medical records and dictation devices, errors in charting still occur. The case was discussed in detail with ED attending physician. Presentation, findings, treatment plan discussed in detail. Supervising Dr. Chaney - Lab Data Result diagrams: 01/06/22 15:25 01/06/22 15:25 Lab Results 01/06/22 01/06/22 01/06/22 Range/Units 15:25 15:25 15:25 WBC 10.9 H (3.8-10.6) k/uL RBC 4.85 (3.80-5.40) m/uL Hgb 14.0 (11.4-16.0) gm/dL Hct 41.6 (34.0-46.0) % MCV 85.8 (80.0-100.0) fL MCH 28.8 (25.0-35.0) pg MCHC 33.6 (31.0-37.0) g/dL RDW 13.4 (11.5-15.5) % Plt Count 306 (150-450) k/uL MPV 7.6 Neutrophils % 71 % Lymphocytes % 22 % Monocytes % 4 % Eosinophils % 1 % Basophils % 1 % Neutrophils # 7.7 (1.3-7.7) k/uL Lymphocytes # 2.5 (1.0-4.8) k/uL Monocytes # 0.4 (0-1.0) k/uL Eosinophils # 0.2 (0-0.7) k/uL Basophils # 0.1 (0-0.2) k/uL PT 10.5 (9.0-12.0) sec INR 1.0 (<1.2) APTT 27.1 (22.0-30.0) sec Sodium 139 (137-145) mmol/L Potassium 4.2 (3.5-5.1) mmol/L Chloride 106 (98-107) mmol/L Carbon Dioxide 25 (22-30) mmol/L Anion Gap 8 mmol/L BUN 13 (7-17) mg/dL Creatinine 0.74 (0.52-1.04) mg/dL Est GFR (CKD-EPI)AfAm >90 (>60 ml/min/1.73 sqM) Est GFR (CKD-EPI)NonAf >90 (>60 ml/min/1.73 sqM) Glucose 101 H (74-99) mg/dL Calcium 9.4 (8.4-10.2) mg/dL Magnesium 2.1 (1.6-2.3) mg/dL Total Bilirubin 0.5 (0.2-1.3) mg/dL AST 18 (14-36) U/L ALT 17 (4-34) U/L Alkaline Phosphatase 72 (38-126) U/L Troponin I (0.000-0.034) ng/mL Total Protein 7.3 (6.3-8.2) g/dL Albumin 4.7 (3.5-5.0) g/dL HCG, Qual Stool Occult Blood (Negative) Blood Type Blood Type Confirm Blood Type Recheck Bld Type Recheck Status Antibody Screen Spec Expiration Date 01/06/22 01/06/22 01/06/22 Range/Units 15:25 15:25 15:25 WBC (3.8-10.6) k/uL RBC (3.80-5.40) m/uL Hgb (11.4-16.0) gm/dL Hct (34.0-46.0) % MCV (80.0-100.0) fL MCH (25.0-35.0) pg MCHC (31.0-37.0) g/dL RDW (11.5-15.5) % Plt Count (150-450) k/uL MPV Neutrophils % % Lymphocytes % % Monocytes % % Eosinophils % % Basophils % % Neutrophils # (1.3-7.7) k/uL Lymphocytes # (1.0-4.8) k/uL Monocytes # (0-1.0) k/uL Eosinophils # (0-0.7) k/uL Basophils # (0-0.2) k/uL PT (9.0-12.0) sec INR (<1.2) APTT (22.0-30.0) sec Sodium (137-145) mmol/L Potassium (3.5-5.1) mmol/L Chloride (98-107) mmol/L Carbon Dioxide (22-30) mmol/L Anion Gap mmol/L BUN (7-17) mg/dL Creatinine (0.52-1.04) mg/dL Est GFR (CKD-EPI)AfAm (>60 ml/min/1.73 sqM) Est GFR (CKD-EPI)NonAf (>60 ml/min/1.73 sqM) Glucose (74-99) mg/dL Calcium (8.4-10.2) mg/dL Magnesium (1.6-2.3) mg/dL Total Bilirubin (0.2-1.3) mg/dL AST (14-36) U/L ALT (4-34) U/L Alkaline Phosphatase (38-126) U/L Troponin I <0.012 (0.000-0.034) ng/mL Total Protein (6.3-8.2) g/dL Albumin (3.5-5.0) g/dL HCG, Qual Not Detected Stool Occult Blood (Negative) Blood Type O Negative Blood Type Confirm Blood Type Recheck No Previous Record Bld Type Recheck Status CABO Indicated Antibody Screen NEGATIVE Spec Expiration Date 01/09/2022 - 232401/06/22 01/06/22 Range/Units 15:35 20:12 WBC (3.8-10.6) k/uL RBC (3.80-5.40) m/uL Hgb (11.4-16.0) gm/dL Hct (34.0-46.0) % MCV (80.0-100.0) fL MCH (25.0-35.0) pg MCHC (31.0-37.0) g/dL RDW (11.5-15.5) % Plt Count (150-450) k/uL MPV Neutrophils % % Lymphocytes % % Monocytes % % Eosinophils % % Basophils % % Neutrophils # (1.3-7.7) k/uL Lymphocytes # (1.0-4.8) k/uL Monocytes # (0-1.0) k/uL Eosinophils # (0-0.7) k/uL Basophils # (0-0.2) k/uL PT (9.0-12.0) sec INR (<1.2) APTT (22.0-30.0) sec Sodium (137-145) mmol/L Potassium (3.5-5.1) mmol/L Chloride (98-107) mmol/L Carbon Dioxide (22-30) mmol/L Anion Gap mmol/L BUN (7-17) mg/dL Creatinine (0.52-1.04) mg/dL Est GFR (CKD-EPI)AfAm (>60 ml/min/1.73 sqM) Est GFR (CKD-EPI)NonAf (>60 ml/min/1.73 sqM) Glucose (74-99) mg/dL Calcium (8.4-10.2) mg/dL Magnesium (1.6-2.3) mg/dL Total Bilirubin (0.2-1.3) mg/dL AST (14-36) U/L ALT (4-34) U/L Alkaline Phosphatase (38-126) U/L Troponin I (0.000-0.034) ng/mL Total Protein (6.3-8.2) g/dL Albumin (3.5-5.0) g/dL HCG, Qual Stool Occult Blood Negative (Negative) Blood Type Blood Type Confirm O Negative Blood Type Recheck Bld Type Recheck Status Antibody Screen Spec Expiration Date Disposition Clinical Impression: Internal hemorrhoid, bleeding, Negative test Disposition: HOME SELF-CARE Condition: Good Instructions (If sedation given, give patient instructions): Hemorrhoids (ED) Additional Instructions: Follow-up with your regular physician as directed. Return to the ER immediately if any symptoms worsen, new symptoms arise, or any other problems develop. Anusol HC as directed your blood pressure test was negative. Prescriptions: Hydrocortisone Suppository [Anusol-Hc] 25 mg RECTAL DAILY #9 suppositor Is patient prescribed a controlled substance at d/c from ED?: No Referrals: Migue Stafford MD [Primary Care Provider] - 1-2 days Geneva Love DO [Doctor of Osteopathic Medicine] - 01/08/22 Time of Disposition: 20:55
[2022-01-06 21:03] VITALS: BP 123/87; PULSE 72; RESP 18
== END 2022-01-06 21:06 | disposition home or self-care (01) ==
LOC: EC 14:52
DX: K64.8 Other hemorrhoids (principal); Z32.02 Encounter for pregnancy test, result negative; F17.200 Nicotine dependence, unspecified, uncomplicated; Z88.8 Allergy status to other drugs, medicaments and biological substances
CPT/HCPCS: 36415; 80053; 82272; 83735; 84484; 84703; 85025; 85610; 85730; 86850; 86900; 86901; 99284

== ENCOUNTER → 2022-02-10 | Outpatient (CLI) | payer OTHER ==
[2022-02-10 23:01] LABS: Basophils # (A) 0.05 X 10*3/uL (0.00-0.10); Basophils % (A) 0.4 %; Eosinophils # (A) 0.22 X 10*3/uL (0.04-0.35); Eosinophils % (A) 1.9 %; HCT 39.3 % (37.2-46.3); HGB 12.7 g/dL (12.0-15.0); Immature Grans, Automated 0.4 %; Lymphocytes # (A) 2.72 X 10*3/uL (0.90-5.00); Lymphocytes % (A) 23.9 %; MCH 28.5 pg (27.0-32.0); MCHC 32.3 g/dL (32.0-37.0); MCV 88.3 fL (80.0-97.0); Mean Platelet Volume 10.5 fL (9.5-12.2); Monocytes # (A) 0.55 X 10*3/uL (0.20-1.00); Monocytes % (A) 4.8 %; NRBC Per 100 WBC 0 /100 WBCS (0.0-0.0); Neutrophils # (A) 7.81 X 10*3/uL (1.80-7.70); Neutrophils % (A) 68.6 %; Platelet Count 315 X 10*3/uL (140-440); RBC 4.45 X 10*6/uL (4.10-5.20); RDW 13.3 % (11.5-14.5); WBC 11.39 X 10*3/uL (4.50-10.00)
[2022-02-10 23:09] LABS: ALT 16 U/L (8-44); AST 13 U/L (13-35); African American GFR (CKD) 137.6 (60.0-200.0); Albumin 4.4 g/dL (3.8-4.9); Albumin/Globulin Ratio 1.76 (1.60-3.17); Alkaline Phosphatase 66 U/L (41-126); Amylase 41 U/L (23-121); Blood Urea Nitrogen 8.4 mg/dL (9.0-27.0); Calcium 9.6 mg/dL (8.7-10.3); Carbon Dioxide 26.4 mmol/L (20.0-27.5); Chloride 102 mmol/L (96-109); Globulin 2.5 g/dL (1.6-3.3); Glucose 91 mg/dL (70-110); HCG,Quantitative Serum <3.0 (0.0-6.0); Lipase 26 U/L (14-63); Non-African American GFR(CKD) 118.7 (60.0-200.0); Potassium 4.5 mmol/L (3.5-5.5); Sodium 139 mmol/L (135-145); Total Protein 6.9 g/dL (6.2-8.2)
== END | disposition home or self-care (01) ==
LOC: LABWHC1 15:00
PROVIDERS: ATTEND Family Medicine
DX: N91.1 Secondary amenorrhea (principal)
CPT/HCPCS: 36415; 80053; 82150; 83690; 84702; 85025

== ENCOUNTER 2022-02-12 14:39 | Emergency (ER) | payer OTHER ==
--- NOTE | 2022-02-12 15:11 | ED ---
Abdominal Pain HPI - General Source: patient Mode of arrival: ambulatory Limitations: no limitations <Laura Yo - Last Filed: 02/12/22 15:09> <Lora Stephens - Last Filed: 02/12/22 20:06> - General Chief Complaint: Abdominal Pain Stated Complaint: Pelvic pain - History of Present Illness Initial Comments: 26-year-old female presenting to the emergency room with complaints of abdominal pain which she is pointing to the pelvic region which has been going on for approximately 3 days. She reports that pain began initially as a stabbing sensation in the pelvic region. She denies any abnormal vaginal bleeding she is due for her menstrual cycle soon. She states that she recently had a test that was negative. She denies any concerns for STDs. She reports some occasional nausea but no vomiting. She denies any upper abdominal pain, flank pain, dysuria, hematuria, fevers or chills. (Laura Yo) During visit patient does express concern for STIs. Recent new partner. ( Lora Stephens) - Related Data Previous Rx's Medication Instructions Recorded Ibuprofen [Motrin] 800 mg PO Q8H 10 Days #30 tab 08/12/21 Ondansetron Odt [Zofran Odt] 4 mg PO Q8HR PRN #20 tab 09/26/21 Hydrocortisone Suppository 25 mg RECTAL DAILY #9 suppositor 01/06/22 [Anusol-Hc] Doxycycline [Vibramycin] 100 mg PO BID 14 Days #28 capsule 02/12/22 Ibuprofen [Motrin] 800 mg PO Q8HR PRN #30 tab 02/12/22 metroNIDAZOLE [Flagyl] 500 mg PO BID 14 Days #28 tab 02/12/22 Allergies Allergy/AdvReac Type Severity Reaction Status Date / Time topiramate [From Topamax] AdvReac Body goes Verified 09/25/21 22:30 numb Review of Systems ROS Other: All systems not noted in ROS Statement are negative. <Laura Yo - Last Filed: 02/12/22 15:09> ROS Other: All systems not noted in ROS Statement are negative. <Lora Stephens - Last Filed: 02/12/22 20:06> ROS Statement: Those systems with pertinent positive or pertinent negative responses have been documented in the HPI. Past Medical History Past Medical History: No Reported History History of Any Multi-Drug Resistant Organisms: None Reported Past Surgical History: Section, Tonsillectomy Additional Past Surgical History / Comment(s): nose Past Psychological History: No Psychological Hx Reported Smoking Status: Current some day smoker Past Alcohol Use History: None Reported Past Drug Use History: Marijuana <Sanaz,Laura - Last Filed: 02/12/22 15:09> General Exam Limitations: no limitations <Laura Yo - Last Filed: 02/12/22 15:09> General appearance: alert, in no apparent distress Respiratory exam: Present: normal lung sounds bilaterally. Absent: respiratory distress, wheezes, rales, rhonchi, stridor Cardiovascular Exam: Present: regular rate, normal rhythm, normal heart sounds. Absent: systolic murmur, diastolic murmur, rubs, gallop, clicks GI/Abdominal exam: Present: soft, tenderness (left pelvic region ), normal bowel sounds. Absent: distended, guarding, rebound, rigid External exam: Present: normal external exam Speculum exam: Present: vaginal discharge (white, watery, copious) Back exam: Absent: CVA tenderness (R), CVA tenderness (L) Neurological exam: Present: alert, oriented X3, CN II-XII intact Psychiatric exam: Present: normal affect, normal mood Skin exam: Present: warm, dry, intact, normal color. Absent: rash <Lora Stephens - Last Filed: 02/12/22 20:06> Course Vital Signs 02/12/22 02/12/22 02/12/22 15:01 18:46 19:27 Temperature 98.1 F 98.0 F 97.9 F Pulse Rate 80 70 82 Respiratory 16 18 16 Rate Blood Pressure 120/74 105/66 126/90 O2 Sat by Pulse 99 99 99 Oximetry Medical Decision Making - Lab Data Result diagrams: 02/12/22 16:02 02/12/22 16:50 <Lora Stephens - Last Filed: 02/12/22 20:06> - Medical Decision Making Was pt. sent in by a medical professional or institution (, PA, CELLULOSE INSULATION HELPER, urgent care, hospital, or retirement...) When possible be specific @ -[No] Did you speak to anyone other than the patient for history (EMS, parent, family, police, friend...)? What history was obtained from this source @ -[No] Did you review nursing and triage notes (agree or disagree)? Why? @ -[I reviewed and agree with nursing and triage notes] Were old charts reviewed (outside hosp., previous admission, EMS record, old EKG, old radiological studies, urgent care reports/EKG's, retirement records)? Report findings @ -[No old charts were reviewed] Differential Diagnosis (chest pain, altered mental status, abdominal pain women, abdominal pain men, vaginal bleeding, weakness, fever, dyspnea, syncope, headache, dizziness, GI bleed, back pain, seizure, CVA, palpatations, mental health)? @ -PID, ovarian cyst, ovarian torsion EKG interpreted by me (3pts min.). @ -NA X-rays interpreted by me (1pt min.). @ -[None done] CT interpreted by me (1pt min.). @ -[None done] U/S interpreted by me (1pt. min.). @ -Yes, pelvic ultrasound shows no acute process. What testing was considered but not performed or refused? (CT, X-rays, U/S, labs)? Why? @ -Considered CT of the abdomen and pelvis with contrast however patient does not have abdominal tenderness. She does not have fever, chills, nausea, vomiting, diarrhea. Labs unremarkable What meds were considered but not given or refused? Why? @ -[None] Did you discuss the management of the patient with other professionals ( professionals i.e. , PA, CELLULOSE INSULATION HELPER, lab, RT, psych nurse, social service assistant, automat car attendant, teacher, third officer, casey saw operator)? Give summary @ -[No] Was smoking cessation discussed for >3mins.? @ -[No] Was critical care preformed (if so, how long)? @ -[No] Were there social determinants of health that impacted care today? How? (Homelessness, low income, unemployed, alcoholism, drug addiction, t ransportation, low edu. Level, literacy, decrease access to med. care, alf, rehab)? @ -[No] Was there de-escalation of care discussed even if they declined (Discuss DNR or withdrawal of care, Hospice)? DNR status @ -[No] What co-morbidities impacted this encounter? (DM, HTN, Smoking, COPD, CAD, Cancer, CVA, ARF, Chemo, Hep., AIDS, mental health diagnosis, sleep apnea, morbid obesity)? @ -[None] Was patient admitted / discharged? Hospital course, mention meds given and route, prescriptions, significant lab abnormalities, going to OR and other pertinent info. @ -This is a 26-year-old presents with left pelvic pain. Afebrile. Patient well-appearing and in no apparent distress. There is moderate left pelvic tenderness without guarding. Speculum exam reveals copious white, watery discharge, concerning for BV. No cervical motion tenderness. Laboratory s tudies obtained. No leukocytosis, urine unremarkable. is not detected. Pelvic ultrasound showed no acute process. Results discussed with patient. At this time there are no diagnostic studies to explain patient's symptoms. Will cover for gonorrhea, chlaymida, trichomonas, BV. Patient to follow up with brim presser. Undiagnosed new problem with uncertain prognosis? @ -[No] Drug Therapy requiring intensive monitoring for toxicity (Heparin, Nitro, Insulin, Cardizem)? @ -[No] Were any procedures done? @ -[No] Diagnosis/symptom? @ -Left pelvic pain Acute, or Chronic, or Acute on Chronic? @ -Acute Uncomplicated (without systemic symptoms) or Complicated (systemic symptoms)? @ -Uncomplicated Side effects of treatment? @ -[No] Exacerbation, Progression, or Severe Exacerbation? @ -[No] Poses a threat to life or bodily function? How? (Chest pain, USA, NV, pneumonia, PE, COPD, DKA, ARF, appy, cholecystitis, CVA, Diverticulitis, Homicidal, Suicidal, threat to staff... and all critical care pts) @ -[No] Dr. Chaney is my attending. (Lora Stephens) - Lab Data Lab Results 02/12/22 02/12/22 02/12/22 Range/Units 16:02 16:02 16:02 WBC 9.8 (3.8-10.6) k/uL RBC 4.81 (3.80-5.40) m/uL Hgb 13.6 (11.4-16.0) gm/dL Hct 41.1 (34.0-46.0) % MCV 85.5 (80.0-100.0) fL MCH 28.4 (25.0-35.0) pg MCHC 33.2 (31.0-37.0) g/dL RDW 12.9 (11.5-15.5) % Plt Count 303 (150-450) k/uL MPV 7.9 Neutrophils % 69 % Lymphocytes % 24 % Monocytes % 4 % Eosinophils % 2 % Basophils % 1 % Neutrophils # 6.8 (1.3-7.7) k/uL Lymphocytes # 2.4 (1.0-4.8) k/uL Monocytes # 0.4 (0-1.0) k/uL Eosinophils # 0.2 (0-0.7) k/uL Basophils # 0.1 (0-0.2) k/uL Sodium (137-145) mmol/L Potassium (3.5-5.1) mmol/L Chloride (98-107) mmol/L Carbon Dioxide (22-30) mmol/L Anion Gap mmol/L BUN (7-17) mg/dL Creatinine (0.52-1.04) mg/dL Est GFR (CKD-EPI)AfAm (>60 ml/min/1.73 sqM) Est GFR (CKD-EPI)NonAf (>60 ml/min/1.73 sqM) Glucose (74-99) mg/dL Calcium (8.4-10.2) mg/dL Total Bilirubin (0.2-1.3) mg/dL AST (14-36) U/L ALT (4-34) U/L Alkaline Phosphatase (38-126) U/L Total Protein (6.3-8.2) g/dL Albumin (3.5-5.0) g/dL Urine Color Light Yellow Urine Appearance Cloudy H (Clear) Urine pH 7.5 (5.0-8.0) Ur Specific [place] 1.014 (1.001-1.035) Urine Protein Negative (Negative) Urine Glucose (UA) Negative (Negative) Urine Ketones Negative (Negative) Urine Blood Negative (Negative) Urine Nitrite Negative (Negative) Urine Bilirubin Negative (Negative) Urine Urobilinogen <2.0 (<2.0) mg/dL Ur Leukocyte Esterase Negative (Negative) Urine WBC 4 (0-5) /hpf Ur Squamous Epith Cells 8 H (0-4) /hpf Urine Mucus Rare H (None) /hpf Urine HCG, Qual Not Detected (Not Detectd) 02/12/22 Range/Units 16:50 WBC (3.8-10.6) k/uL RBC (3.80-5.40) m/uL Hgb (11.4-16.0) gm/dL Hct (34.0-46.0) % MCV (80.0-100.0) fL MCH (25.0-35.0) pg MCHC (31.0-37.0) g/dL RDW (11.5-15.5) % Plt Count (150-450) k/uL MPV Neutrophils % % Lymphocytes % % Monocytes % % Eosinophils % % Basophils % % Neutrophils # (1.3-7.7) k/uL Lymphocytes # (1.0-4.8) k/uL Monocytes # (0-1.0) k/uL Eosinophils # (0-0.7) k/uL Basophils # (0-0.2) k/uL Sodium 138 (137-145) mmol/L Potassium 4.5 (3.5-5.1) mmol/L Chloride 104 (98-107) mmol/L Carbon Dioxide 27 (22-30) mmol/L Anion Gap 7 mmol/L BUN 11 (7-17) mg/dL Creatinine 0.65 (0.52-1.04) mg/dL Est GFR (CKD-EPI)AfAm >90 (>60 ml/min/1.73 sqM) Est GFR (CKD-EPI)NonAf >90 (>60 ml/min/1.73 sqM) Glucose 86 (74-99) mg/dL Calcium 9.1 (8.4-10.2) mg/dL Total Bilirubin 0.3 (0.2-1.3) mg/dL AST 18 (14-36) U/L ALT 17 (4-34) U/L Alkaline Phosphatase 70 (38-126) U/L Total Protein 7.1 (6.3-8.2) g/dL Albumin 4.3 (3.5-5.0) g/dL Urine Color Urine Appearance (Clear) Urine pH (5.0-8.0) Ur Specific Clio (1.001-1.035) Urine Protein (Negative) Urine Glucose (UA) (Negative) Urine Ketones (Negative) Urine Blood (Negative) Urine Nitrite (Negative) Urine Bilirubin (Negative) Urine Urobilinogen (<2.0) mg/dL Ur Leukocyte Esterase (Negative) Urine WBC (0-5) /hpf Ur Squamous Epith Cells (0-4) /hpf Urine Mucus (None) /hpf Urine HCG, Qual (Not Detectd) Disposition <Laura Yo - Last Filed: 02/12/22 15:09> Is patient prescribed a controlled substance at d/c from ED?: No <KatLora - Last Filed: 02/12/22 20:06> Clinical Impression: Pelvic pain Disposition: HOME SELF-CARE Condition: Good Instructions (If sedation given, give patient instructions): Pelvic Pain in Women (ED) Additional Instructions: Take medication as directed. Do not drink alcohol while taking Flagyl. Follow- up with cooking chef one to 2 days. Return to the emergency department if you experience new, concerning, or worsening symptoms. Prescriptions: metroNIDAZOLE [Flagyl] 500 mg PO BID 14 Days #28 tab Ibuprofen [Motrin] 800 mg PO Q8HR PRN #30 tab PRN Reason: Pain Doxycycline [Vibramycin] 100 mg PO BID 14 Days #28 capsule Referrals: Migue Stafford MD [Primary Care Provider] - 1-2 days
[2022-02-12] MEDS ORDERED: SODIUM CHLORIDE 0.9% 1,000 ML IV STA (16:57)
[2022-02-12 17:19] LABS: Appearance,Urine Cloudy (Clear); Bilirubin,Urine Negative (Negative); Blood,Urine Negative (Negative); Color,Urine Light Yellow; Glucose,Urine (UA) Negative (Negative); Ketones,Urine Negative (Negative); Leukocyte Esterase,Urine Negative (Negative); Mucus,Urine Rare /hpf; Nitrite,Urine Negative (Negative); PH, Urine 7.5 (5.0-8.0); Protein,Urine Negative (Negative); Specific Gravity,Urine 1.014 (1.001-1.035); Squamous Epithelial Cell,Urine 8 /hpf (0-4); Urobilinogen,Urine <2.0 mg/dL (<2.0); WBC,Urine 4 /hpf (0-5)
[2022-02-12] MEDS ORDERED: KETOROLAC 15 MG/ML 1 ML VIAL IVP STA (17:23)
[2022-02-12 17:25] LABS: ALT 17 U/L (4-34); AST 18 U/L (14-36); African American GFR (CKD) >90 (>60 ml/min/1.73 sqM); Albumin 4.3 g/dL (3.5-5.0); Alkaline Phosphatase 70 U/L (38-126); Anion Gap 7 mmol/L; Blood Urea Nitrogen 11 mg/dL (7-17); Calcium 9.1 mg/dL (8.4-10.2); Carbon Dioxide 27 mmol/L (22-30); Chloride 104 mmol/L (98-107); Glucose 86 mg/dL (74-99); Non-African American GFR(CKD) >90 (>60 ml/min/1.73 sqM); Potassium 4.5 mmol/L (3.5-5.1); Sodium 138 mmol/L (137-145); Total Bilirubin 0.3 mg/dL (0.2-1.3); Total Protein 7.1 g/dL (6.3-8.2)
[2022-02-12 17:42] LABS: Basophils # (A) 0.1 k/uL (0-0.2); Basophils % (A) 1 %; Eosinophils # (A) 0.2 k/uL (0-0.7); Eosinophils % (A) 2 %; HCT 41.1 % (34.0-46.0); HGB 13.6 gm/dL (11.4-16.0); Lymphocytes # (A) 2.4 k/uL (1.0-4.8); Lymphocytes % (A) 24 %; MCH 28.4 pg (25.0-35.0); MCHC 33.2 g/dL (31.0-37.0); MCV 85.5 fL (80.0-100.0); Mean Platelet Volume 7.9; Monocytes # (A) 0.4 k/uL (0-1.0); Monocytes % (A) 4 %; Neutrophils # (A) 6.8 k/uL (1.3-7.7); Neutrophils % (A) 69 %; Platelet Count 303 k/uL (150-450); RBC 4.81 m/uL (3.80-5.40); RDW 12.9 % (11.5-15.5); WBC 9.8 k/uL (3.8-10.6)
[2022-02-12] MEDS ORDERED: cefTRIAXone 1,000 MG VIAL (IM USE) IM STA (17:55)
[2022-02-12] MEDS ORDERED: DOXYCYCLINE 100 MG CAP PO STA (17:55)
[2022-02-12] MEDS ORDERED: metroNIDAZOLE 500 MG TAB PO STA (17:56)
--- NOTE | 2022-02-12 18:45 | US ---
EXAMINATION TYPE: US pelvic complete DATE OF EXAM: 02/12/2022 COMPARISON: NONE CLINICAL HISTORY: . Left pelvic pain x 4 days. TECHNIQUE: Transabdominal sonographic images of the pelvis were acquired. Date of LMP: 01/10/22 EXAM MEASUREMENTS: Uterus: 11.1 x 6.6 x 5.3 cm Endometrial Stripe: 0.63 cm Right Ovary: 4.2 x 3.0 x 2.5 cm Left Ovary: 3.4 x 2.8 x 2.2 cm 1. Uterus: Anteverted wnl 2. Endometrium: wnl 3. Right Ovary: wnl 4. Left Ovary: wnl Spectral, color and waveform doppler imaging shows good arterial and venous flow within the ovaries ; there is no evidence for ovarian torsion. 5. Bilateral Adnexa: wnl 6. Posterior cul-de-sac: wnl IMPRESSION: No acute process.
[2022-02-12 19:28] VITALS: BP 126/90; PULSE 82; RESP 16; TEMP 97.9
[2022-02-12] MEDS ORDERED: ACET/COD 300 MG/30 MG STARTER PACK 6 TAB BTL PO STA (19:48)
[2022-02-13 12:57] LABS: C. trachomatis,PCR Negative (Neg,Equiv); Chlamydia trachomatis Source Urine; N. gonorrhoeae,PCR Negative (Neg,Equiv); Neisseria Source Urine
== END 2022-02-12 19:57 | disposition home or self-care (01) ==
LOC: EC 14:39
DX: R10.2 Pelvic and perineal pain (principal); F17.200 Nicotine dependence, unspecified, uncomplicated; F12.90 Cannabis use, unspecified, uncomplicated; Z88.8 Allergy status to other drugs, medicaments and biological substances
CPT/HCPCS: 36415; 80053; 85025; 81001; 81025; 87491; 87591; 93975; 76856; 99284; 96365; 96375; 96361; J0696; J1885

== ENCOUNTER → 2022-02-24 | Outpatient (CLI) | payer OTHER | END | disposition home or self-care (01) | LOC: LABWHC1 11:26 | PROVIDERS: ATTEND Family Medicine | DX: N91.1 Secondary amenorrhea (principal) | CPT/HCPCS: 36415; 84702 ==

== ENCOUNTER 2022-05-20 00:43 | Emergency (ER) | payer OTHER ==
[2022-05-20 00:47] VITALS: BP 111/73; PULSE 88; RESP 18
[2022-05-20] MEDS ORDERED: SODIUM CHLORIDE 0.9% 1,000 ML IV ONE (01:44)
[2022-05-20] MEDS ORDERED: KETOROLAC 15 MG/ML 1 ML VIAL IVP STA ×2 (01:44→03:34)
--- NOTE | 2022-05-20 02:32 | ED ---
Headache HPI - General Chief Complaint: Headache Stated Complaint: Migraine, fever Time Seen by Provider: 05/20/22 01:37 Source: RN notes reviewed Mode of arrival: ambulatory Limitations: no limitations - History of Present Illness Initial Comments: 27-year-old female presents emergency Department with chief complaint migraine headache. Patient states she is a frontal headache started last 24 hours. Patient denies any neck pain or neck stiffness. Patient states she has mild cough and cold-like symptoms. Denies any ear pain mild sore throat denies any nausea and diarrhea constipation has not had a Tylenol Motrin. Patient states she's had headaches that this in the past. - Related Data Previous Rx's Medication Instructions Recorded Ibuprofen [Motrin] 800 mg PO Q8H 10 Days #30 tab 08/12/21 Ondansetron Odt [Zofran Odt] 4 mg PO Q8HR PRN #20 tab 09/26/21 Hydrocortisone Suppository 25 mg RECTAL DAILY #9 suppositor 01/06/22 [Anusol-Hc] Doxycycline [Vibramycin] 100 mg PO BID 14 Days #28 capsule 02/12/22 Ibuprofen [Motrin] 800 mg PO Q8HR PRN #30 tab 02/12/22 metroNIDAZOLE [Flagyl] 500 mg PO BID 14 Days #28 tab 02/12/22 Allergies Allergy/AdvReac Type Severity Reaction Status Date / Time topiramate [From Topamax] AdvReac Body goes Verified 05/20/22 00:47 numb Review of Systems ROS Statement: Those systems with pertinent positive or pertinent negative responses have been documented in the HPI. ROS Other: All systems not noted in ROS Statement are negative. Past Medical History Past Medical History: No Reported History Additional Past Medical History / Comment(s): migraines History of Any Multi-Drug Resistant Organisms: None Reported Past Surgical History: Section, Tonsillectomy Additional Past Surgical History / Comment(s): nose Past Psychological History: No Psychological Hx Reported Smoking Status: Current some day smoker Past Alcohol Use History: None Reported Past Drug Use History: Marijuana General Exam Limitations: no limitations General appearance: alert, in no apparent distress Head exam: Present: atraumatic, normocephalic, normal inspection Eye exam: Present: normal appearance, PERRL, EOMI. Absent: scleral icterus, conjunctival injection, periorbital swelling ENT exam: Present: normal exam, normal oropharynx, mucous membranes moist Neck exam: Present: normal inspection, full ROM. Absent: tenderness, meningismus, lymphadenopathy Respiratory exam: Present: normal lung sounds bilaterally. Absent: respiratory distress, wheezes, rales, rhonchi, stridor Cardiovascular Exam: Present: regular rate, normal rhythm, normal heart sounds. Absent: systolic murmur, diastolic murmur, rubs, gallop, clicks Neurological exam: Present: alert, oriented X3, CN II-XII intact, reflexes normal. Absent: motor sensory deficit Skin exam: Present: warm, dry, intact, normal color. Absent: rash Course Vital Signs 05/20/22 05/20/22 00:44 03:24 Temperature 100.0 F H 98.6 F Pulse Rate 88 Respiratory 18 Rate Blood Pressure 111/73 O2 Sat by Pulse 97 Oximetry Medical Decision Making - Medical Decision Making Was pt. sent in by a medical professional or institution (, PA, CORPORATE CONSULTANT, urgent care, hospital, or fci...) When possible be specific @ -No Did you speak to anyone other than the patient for history (EMS, parent, family, police, friend...)? What history was obtained from this source @ -No Did you review nursing and triage notes (agree or disagree)? Why? @ -I reviewed and agree with nursing and triage notes Were old charts reviewed (outside hosp., previous admission, EMS record, old EKG, old radiological studies, urgent care reports/EKG's, fci records)? Report findings @ -No old charts were reviewed Differential Diagnosis (chest pain, altered mental status, abdominal pain women, abdominal pain men, vaginal bleeding, weakness, fever, dyspnea, syncope, headache, dizziness, GI bleed, back pain, seizure, CVA, palpatations, mental health, musculoskeletal)? @ -[Migraine,: covid 19, influenza, viral infection, tension headache, sinus, systolic was sent EKG interpreted by me (3pts min.). @ -[None X-rays interpreted by me (1pt min.). @ -None done CT interpreted by me (1pt min.). @ -None done U/S interpreted by me (1pt. min.). @ -None done What testing was considered but not performed or refused? (CT, X-rays, U/S, labs)? Why? @ -None What meds were considered but not given or refused? Why? @ -None Did you discuss the management of the patient with other professionals (professionals i.e. , PA, CORPORATE CONSULTANT, lab, RT, psych nurse, social and human services assistant, public safety telecommunicator, teacher, cavalry officer, mental health case manager)? Give summary @ -No Was smoking cessation discussed for >3mins.? @ -No Was critical care preformed (if so, how long)? @ -No Were there social determinants of health that impacted care today? How? (Homelessness, low income, unemployed, alcoholism, drug addiction, transportation, low edu. Level, literacy, decrease access to med. care, residential, rehab)? @ -No Was there de-escalation of care discussed even if they declined (Discuss DNR or withdrawal of care, Hospice)? DNR status @ -No What co-morbidities impacted this encounter? (DM, HTN, Smoking, COPD, CAD, Cancer, CVA, ARF, Chemo, Hep., AIDS, mental health diagnosis, sleep apnea, morbid obesity)? @ -Chronic migraines Was patient admitted / discharged? Hospital course, mention meds given and route, prescriptions, significant lab abnormalities, going to OR and other pertinent info. @ -Discharge patient has no evidence of acute infection patient is improved at this time she states the headache is resolved and she is afebrile, no meningismus. Patient discharged stable condition return parameters discussed. Undiagnosed new problem with uncertain prognosis? @ -No Drug Therapy requiring intensive monitoring for toxicity (Heparin, Nitro, Insulin, Cardizem)? @ -No Were any procedures done? @ -No Diagnosis/symptom? @ -Viral URI, migraine Acute, or Chronic, or Acute on Chronic? @ -Acute Uncomplicated (without systemic symptoms) or Complicated (systemic symptoms)? @ -Uncomplicated Side effects of treatment? @ -No Exacerbation, Progression, or Severe Exacerbation? @ -No Poses a threat to life or bodily function? How? (Chest pain, [place], [place], pneumonia, PE, COPD, DKA, ARF, appy, cholecystitis, CVA, Diverticulitis, Homicidal, Suicidal, threat to staff... and all critical care pts) @ -No - Lab Data Result diagrams: 05/20/22 02:27 05/20/22 02:27 Lab Results 05/20/22 05/20/2223 Range/Units 00:49 02:27 02:27 WBC 7.0 (3.8-10.6) k/uL RBC 4.81 (3.80-5.40) m/uL Hgb 13.6 (11.4-16.0) gm/dL Hct 40.2 (34.0-46.0) % MCV 83.7 (80.0-100.0) fL MCH 28.2 (25.0-35.0) pg MCHC 33.7 (31.0-37.0) g/dL RDW 13.5 (11.5-15.5) % Plt Count 225 (150-450) k/uL MPV 7.2 Neutrophils % 76 % Lymphocytes % 18 % Monocytes % 5 % Eosinophils % 0 % Basophils % 1 % Neutrophils # 5.3 (1.3-7.7) k/uL Lymphocytes # 1.3 (1.0-4.8) k/uL Monocytes # 0.3 (0-1.0) k/uL Eosinophils # 0.0 (0-0.7) k/uL Basophils # 0.0 (0-0.2) k/uL Sodium (137-145) mmol/L Potassium (3.5-5.1) mmol/L Chloride (98-107) mmol/L Carbon Dioxide (22-30) mmol/L Anion Gap mmol/L BUN (7-17) mg/dL Creatinine (0.52-1.04) mg/dL Est GFR (CKD-EPI)AfAm (>60 ml/min/1.73 sqM) Est GFR (CKD-EPI)NonAf (>60 ml/min/1.73 sqM) Glucose (74-99) mg/dL Calcium (8.4-10.2) mg/dL Total Bilirubin (0.2-1.3) mg/dL AST (14-36) U/L ALT (4-34) U/L Alkaline Phosphatase (38-126) U/L Total Protein (6.3-8.2) g/dL Albumin (3.5-5.0) g/dL Heterophile Antibody Negative (Negative) Influenza Type A (PCR) Not Detected (Not Detectd) Influenza Type B (PCR) Not Detected (Not Detectd) RSV (PCR) Not Detected (Not Detectd) SARS-CoV-2 (PCR) Not Detected (Not Detectd) Group A Strep (PCR) (Not Detectd) 05/20/22 05/20/22 Range/Units 02:27 03:01 WBC (3.8-10.6) k/uL RBC (3.80-5.40) m/uL Hgb (11.4-16.0) gm/dL Hct (34.0-46.0) % MCV (80.0-100.0) fL MCH (25.0-35.0) pg MCHC (31.0-37.0) g/dL RDW (11.5-15.5) % Plt Count (150-450) k/uL MPV Neutrophils % % Lymphocytes % % Monocytes % % Eosinophils % % Basophils % % Neutrophils # (1.3-7.7) k/uL Lymphocytes # (1.0-4.8) k/uL Monocytes # (0-1.0) k/uL Eosinophils # (0-0.7) k/uL Basophils # (0-0.2) k/uL Sodium 133 L (137-145) mmol/L Potassium 4.0 (3.5-5.1) mmol/L Chloride 101 (98-107) mmol/L Carbon Dioxide 25 (22-30) mmol/L Anion Gap 7 mmol/L BUN 9 (7-17) mg/dL Creatinine 1.00 (0.52-1.04) mg/dL Est GFR (CKD-EPI)AfAm 89 (>60 ml/min/1.73 sqM) Est GFR (CKD-EPI)NonAf 77 (>60 ml/min/1.73 sqM) Glucose 96 (74-99) mg/dL Calcium 8.5 (8.4-10.2) mg/dL Total Bilirubin 0.4 (0.2-1.3) mg/dL AST 19 (14-36) U/L ALT 18 (4-34) U/L Alkaline Phosphatase 52 (38-126) U/L Total Protein 6.3 (6.3-8.2) g/dL Albumin 3.8 (3.5-5.0) g/dL Heterophile Antibody (Negative) Influenza Type A (PCR) (Not Detectd) Influenza Type B (PCR) (Not Detectd) RSV (PCR) (Not Detectd) SARS-CoV-2 (PCR) (Not Detectd) Group A Strep (PCR) NOT DETECTED (Not Detectd) Disposition Clinical Impression: Migraine headache, Viral URI Disposition: HOME SELF-CARE Condition: Stable Instructions (If sedation given, give patient instructions): Acute Headache (ED) Additional Instructions: Please return to the Emergency Department if symptoms worsen or any other concerns. Is patient prescribed a controlled substance at d/c from ED?: No Referrals: Migue Stafford MD [Primary Care Provider] - 1-2 days Time of Disposition: 03:57
[2022-05-20 03:04] LABS: Basophils % (A) 1 %; Eosinophils % (A) 0 %; HCT 40.2 % (34.0-46.0); HGB 13.6 gm/dL (11.4-16.0); Lymphocytes # (A) 1.3 k/uL (1.0-4.8); Lymphocytes % (A) 18 %; MCH 28.2 pg (25.0-35.0); MCHC 33.7 g/dL (31.0-37.0); MCV 83.7 fL (80.0-100.0); Mean Platelet Volume 7.2; Monocytes # (A) 0.3 k/uL (0-1.0); Monocytes % (A) 5 %; Neutrophils # (A) 5.3 k/uL (1.3-7.7); Neutrophils % (A) 76 %; Platelet Count 225 k/uL (150-450); RBC 4.81 m/uL (3.80-5.40); RDW 13.5 % (11.5-15.5)
[2022-05-20 03:11] LABS: Albumin 3.8 g/dL (3.5-5.0); Calcium 8.5 mg/dL (8.4-10.2); Total Bilirubin 0.4 mg/dL (0.2-1.3); Total Protein 6.3 g/dL (6.3-8.2)
[2022-05-20 03:24] VITALS: TEMP 98.6
[2022-05-20] MEDS ORDERED: diphenhydrAMINE 50 MG/ML 1 ML VIAL IVP STA (03:33)
[2022-05-20] MEDS ORDERED: METOCLOPRAMIDE 5 MG/ML 2 ML VIAL IVP STA (03:33)
== END 2022-05-20 04:21 | disposition home or self-care (01) ==
LOC: EC 00:43
DX: G43.909 Migraine, unspecified, not intractable, without status migrainosus (principal); J06.9 Acute upper respiratory infection, unspecified; F17.200 Nicotine dependence, unspecified, uncomplicated; F12.90 Cannabis use, unspecified, uncomplicated; Z20.822 Contact with and (suspected) exposure to COVID-19; Z88.8 Allergy status to other drugs, medicaments and biological substances
CPT/HCPCS: 36415; 87651; 80053; 85025; 86308; 87636; 99283; 96374; 96375 ×3; 96376; 96361 ×2; J1200; J2765; J1885; J1790

== ENCOUNTER 2022-09-10 20:11 | Emergency (ER) | payer OTHER ==
[2022-09-10 20:18] VITALS: BP 117/68; PULSE 77; RESP 22; TEMP 98.9
--- NOTE | 2022-09-10 21:47 | XR ---
EXAMINATION TYPE: XR ankle complete 3 views LT DATE OF EXAM: 09/10/2022 Comparison: 08/30/2021 Clinical History: 27-year-old female twisted, ankle pain after falling down stairs. Findings: Ankle mortise appears congruent with preservation of the distal tibiofibular overlap. Talar dome is i ntact. Some mild soft tissue swelling is noted. Small plantar heel spur. No acute fracture, subluxati on, or dislocation. Bipartite tibial sesamoid. Impression: Mild soft tissue swelling. No acute osseous abnormality seen.
--- NOTE | 2022-09-10 21:52 | ED ---
General Adult HPI - General Chief complaint: Extremity Injury, Lower Stated complaint: Lt ankle injury Time Seen by Provider: 09/10/22 20:34 Source: patient, RN notes reviewed Mode of arrival: wheelchair Limitations: no limitations - History of Present Illness Initial comments: 19-year-old female presents to the emergency department with chief complaint of left ankle pain. She states that she was walking up some stairs when she tripped and fell. She is reporting pain in her left ankle but denies any other injuries. Denies head trauma. She reports chronic ankle pain for which she has undergone physical therapy and an MRI for in the past. Past medical history includes bipolar disorder and migraines. She reports that she occasionally takes Motrin for pain but did not take anything today. - Related Data Previous Rx's Medication Instructions Recorded Ibuprofen [Motrin] 800 mg PO Q8H 10 Days #30 tab 08/12/21 Ondansetron Odt [Zofran Odt] 4 mg PO Q8HR PRN #20 tab 09/26/21 Hydrocortisone Suppository 25 mg RECTAL DAILY #9 suppositor 01/06/22 [Anusol-Hc] Doxycycline [Vibramycin] 100 mg PO BID 14 Days #28 capsule 02/12/22 Ibuprofen [Motrin] 800 mg PO Q8HR PRN #30 tab 02/12/22 metroNIDAZOLE [Flagyl] 500 mg PO BID 14 Days #28 tab 02/12/22 Allergies Allergy/AdvReac Type Severity Reaction Status Date / Time latex AdvReac Rash/Hives Verified 09/10/22 20:18 topiramate [From Topamax] AdvReac Body goes Verified 06/16/22 20:46 numb Review of Systems ROS Statement: Those systems with pertinent positive or pertinent negative responses have been documented in the HPI. ROS Other: All systems not noted in ROS Statement are negative. Past Medical History Past Medical History: No Reported History Additional Past Medical History / Comment(s): migraines History of Any Multi-Drug Resistant Organisms: None Reported Past Surgical History: Section, Tonsillectomy Additional Past Surgical History / Comment(s): nose Past Psychological History: Bipolar Smoking Status: Current every day smoker, Current some day smoker, Vaper Past Alcohol Use History: None Reported Past Drug Use History: Marijuana General Exam Limitations: no limitations General appearance: alert, in no apparent distress Head exam: Present: atraumatic, normocephalic, normal inspection Eye exam: Present: normal appearance, PERRL, EOMI. Absent: scleral icterus, conjunctival injection, periorbital swelling ENT exam: Present: normal exam, mucous membranes moist Neck exam: Present: normal inspection. Absent: tenderness, meningismus, lymphadenopathy Respiratory exam: Present: normal lung sounds bilaterally. Absent: respiratory distress, wheezes, rales, rhonchi, stridor Cardiovascular Exam: Present: regular rate, normal rhythm, normal heart sounds. Absent: systolic murmur, diastolic murmur, rubs, gallop, clicks Extremities exam: Present: full ROM, tenderness (Lateral ankle), normal capillary refill, other (DP and PT pulses 2+, left lateral ankle swelling) Back exam: Present: normal inspection Neurological exam: Present: alert, oriented X3 Psychiatric exam: Present: normal affect, normal mood Skin exam: Present: warm, dry, intact, normal color. Absent: rash Course Vital Signs 09/10/22 20:13 Temperature 98.9 F Pulse Rate 77 Respiratory 22 Rate Blood Pressure 117/68 O2 Sat by Pulse 97 Oximetry Medical Decision Making - Medical Decision Making Was pt. sent in by a medical professional or institution (, PA, MARKETING COMMUNICATION MANAGER, urgent care, hospital, or correction...) When possible be specific @ -No Did you speak to anyone other than the patient for history (EMS, parent, family, police, friend...)? What history was obtained from this source @ -No Did you review nursing and triage notes (agree or disagree)? Why? @ -I reviewed and agree with nursing and triage notes Were old charts reviewed (outside hosp., previous admission, EMS record, old EKG, old radiological studies, urgent care reports/EKG's, correction records)? Report findings @ -No old charts were reviewed Differential Diagnosis (chest pain, altered mental status, abdominal pain women, abdominal pain men, vaginal bleeding, weakness, fever, dyspnea, syncope, hea dache, dizziness, GI bleed, back pain, seizure, CVA, palpatations, mental health, musculoskeletal)? @ -Differential Musculoskeletal Muscular strain, contusion, ligament sprain, fracture, arthritis, septic arthritis, bursitis, cellulitis, muscle spasm, nerve compression, DVT, arterial occlusion, herpes zoster, electrolyte abnormality, tumor.... This is not meant to be in all inclusive list EKG interpreted by me (3pts min.). @ -none X-rays interpreted by me (1pt min.). @ -X-ray left ankle showed no evidence for acute fracture CT interpreted by me (1pt min.). @ -None done U/S interpreted by me (1pt. min.). @ -None done What testing was considered but not performed or refused? (CT, X-rays, U/S, labs)? Why? @ -None What meds were considered but not given or refused? Why? @ -None Did you discuss the management of the patient with other professionals (professionals i.e. Dr., PA, MARKETING COMMUNICATION MANAGER, lab, RT, psych nurse, rn social work, repairer kiln car, teacher, conservation enforcement officer, case fitter)? Give summary @ -No Was smoking cessation discussed for >3mins.? @ -No Was critical care preformed (if so, how long)? @ -No Were there social determinants of health that impacted care today? How? (Homelessness, low income, unemployed, alcoholism, drug addiction, transportation, low edu. Level, literacy, decrease access to med. care, shelter, rehab)? @ -No Was there de-escalation of care discussed even if they declined (Discuss DNR or withdrawal of care, Hospice)? DNR status @ -No What co-morbidities impacted this encounter? (DM, HTN, Smoking, COPD, CAD, Cancer, CVA, ARF, Chemo, Hep., AIDS, mental health diagnosis, sleep apnea, morbid obesity)? @ -None Was patient admitted / discharged? Hospital course, mention meds given and route, prescriptions, significant lab abnormalities, going to OR and other pertinent info. @ -Discharged. Patient presented to emergency department chief complaining of left ankle injury when she tripped on the stairs. She denies any other injury. Denies hitting her head. There is some lateral left ankle swelling. Patient has a history of chronic ankle issues but has never followed with orthopedic doctor. X-ray obtained which show no evidence for acute fracture. Patient placed in an Aircast. Patient stable at time of discharge. Case discussed my attending, Dr. Osborne Undiagnosed new problem with uncertain prognosis? @ -No Drug Therapy requiring intensive monitoring for toxicity (Heparin, Nitro, Insulin, Cardizem)? @ -No Were any procedures done? @ -No Diagnosis/symptom? @ -Left ankle sprain Acute, or Chronic, or Acute on Chronic? @ -Acute Uncomplicated (without systemic symptoms) or Complicated (systemic symptoms)? @ -Uncomplicated Side effects of treatment? @ -No Exacerbation, Progression, or Severe Exacerbation? @ -No Poses a threat to life or bodily function? How? (Chest pain, [place], [place], pneumonia, PE, COPD, DKA, ARF, appy, cholecystitis, CVA, Diverticulitis, Homicidal, Suicidal, threat to staff... and all critical care pts) @ -No Disposition Clinical Impression: Left ankle sprain Disposition: HOME SELF-CARE Condition: Stable Instructions (If sedation given, give patient instructions): Ankle Sprain (ED) Additional Instructions: Please return to the emergency department for new or worsening symptoms. Is patient prescribed a controlled substance at d/c from ED?: No Referrals: Migue Stafford MD [Primary Care Provider] - 1-2 days Time of Disposition: 22:17
== END 2022-09-10 22:36 | disposition home or self-care (01) ==
LOC: EC 20:11
DX: S93.402A Sprain of unspecified ligament of left ankle, initial encounter (principal); F17.290 Nicotine dependence, other tobacco product, uncomplicated; F12.90 Cannabis use, unspecified, uncomplicated; Z88.8 Allergy status to other drugs, medicaments and biological substances; Z91.040 Latex allergy status; W10.9XXA Fall (on) (from) unspecified stairs and steps, initial encounter; Y93.01 Activity, walking, marching and hiking
CPT/HCPCS: 99283

== ENCOUNTER 2022-10-14 11:16 | Day surgery (SDC) | payer OTHER ==
[~2022-10-14 11:16] MED LIST: LACTATED RINGERS 1,000 ML IV SCH; LIDOCAINE 1% (10MG/ML) FOR IV START INTRADERMA PRN
[2022-10-14 12:26] VITALS: RESP 16; TEMP 98.1
[2022-10-14 12:45] LABS: Glucose,Whole Blood 83 mg/dL (70-110)
[2022-10-14] MEDS ORDERED: PROPOFOL 10 MG/ML 20 ML VIAL IV ONE (12:46)
[2022-10-14] MEDS ORDERED: LIDOCAINE 2% INJ 20 MG/ML (2 ML VIAL) ONE (12:46)
--- NOTE | 2022-10-14 12:55 | P.PCN ---
Date of Procedure: 10/14/22 Procedure(s) Performed: BRIEF HISTORY: Patient is a 27-year-old, pleasant, white male scheduled for an upper endoscopy as a part of evaluation of chronic hiccups and epigastric pain for the last 6 months duration. She tried PPIs with no help.. PROCEDURE PERFORMED: Esophagogastroduodenoscopy with biopsy. PREOPERATIVE DIAGNOSIS: Chronic epigastric pain. IV sedation per anesthesia. PROCEDURE: After informed consent was obtained, the patient was brought into the endoscopy unit. IV sedation was administered by Anesthesia under continuous monitoring. Initially the Olympus GIF-140 video endoscope was inserted into the mouth. Esophagus intubated without any difficulty. It was gradually advanced int o the stomach and duodenum and carefully examined. The bulb and the second part of the duodenum appeared normal. Biopsies were done from the duodenum to evaluate for celiac disease. The scope at this time was withdrawn to the stomach, adequately insufflated with air, and upon careful examination, mucosa of the antrum, had erosions and biopsies were done from this area. Mucosa of the body, cardia and the fundus appeared normal. The scope was then withdrawn into the esophagus. The GE junction was located at 39 cm from the incisors. The esophagus appeared normal. There were no erosions or ulcerations seen and the patient tolerated the procedure well. IMPRESSION: 1. Antral erosive gastritis. 2. Normal-appearing esophagus with no evidence of esophagitis or hiatal hernia. RECOMMENDATIONS: The findings of this examination were discussed with the patient as well as a family. She was advised to follow with the biopsy results.. Continue with diet modification antireflux measures. Avoid NSAIDs.
[2022-10-14 13:39] VITALS: BP 116/69; PULSE 65
== END 2022-10-14 13:52 | disposition home or self-care (01) ==
LOC: ORWHC2ENDO 11:16
PROVIDERS: ATTEND Internal Medicine Gastroenterology
DX: K29.60 Other gastritis without bleeding (principal); J45.909 Unspecified asthma, uncomplicated; F31.9 Bipolar disorder, unspecified; F17.200 Nicotine dependence, unspecified, uncomplicated; K21.9 Gastro-esophageal reflux disease without esophagitis; Z88.8 Allergy status to other drugs, medicaments and biological substances; Z91.040 Latex allergy status; Z79.899 Other long term (current) drug therapy
CPT/HCPCS: 81025; 43239; J2704; J2001; 88305; 88342

== ENCOUNTER 2023-07-19 19:57 | Emergency (ER) | payer OTHER ==
--- NOTE | 2023-07-19 20:30 | ED ---
Back Pain HPI - General Chief Complaint: Back Pain/Injury Stated Complaint: Back Pain Time Seen by Provider: 07/19/23 20:17 Source: patient, RN notes reviewed Mode of arrival: ambulatory Limitations: no limitations - History of Present Illness Initial Comments: This is a 28-year-old female who presents to the emergency department for back pain. Patient reports a history of chronic back pain, and states that it flared up this morning. Pain is primarily in the left low back. Denies any new injuries. She does follow with Dr. Melendez. She tried taking ibuprofen without any relief in symptoms. Denies any loss of bowel/bladder control or saddle anesthesia. Additionally, states that she found out that her ex- boyfriend had tested positive for STDs and she would like to be tested as well. Denies any abdominal pain, vaginal bleeding or vaginal discharge. MD Complaint: back pain - Related Data Home Medications Medication Instructions Recorded Confirmed Albuterol Sulfate [Ventolin HFA] 2 puff INHALATION Q6H PRN 10/13/22 10/13/22 Divalproex ER [Depakote ER] 500 mg PO DAILY 10/13/22 10/13/22 Nitrofurantoin Monohyd/M-Cryst 100 mg PO BID 10/13/22 10/13/22 [Macrobid] Pantoprazole [Protonix] 40 mg PO DAILY 10/13/22 10/13/22 Previous Rx's Medication Instructions Recorded Ondansetron Odt [Zofran Odt] 4 mg PO Q8HR PRN #20 tab 09/26/21 Ibuprofen [Motrin] 800 mg PO Q8HR PRN #30 tab 02/12/22 Doxycycline Hyclate 100 mg PO BID 7 Days #14 tab 07/19/23 Lidocaine 5% Patch [Lidoderm 5% 1 patch TOPICAL DAILY PRN #30 patch 07/19/23 Patch] Naproxen Sodium 550 mg PO BID PRN #20 tablet 07/19/23 methocarbamoL [Robaxin-750] 1,500 mg PO TID PRN #30 tab 07/19/23 Allergies Allergy/AdvReac Type Severity Reaction Status Date / Time adhesive tape Allergy Rash/Hives Verified 07/19/23 20:09 latex Allergy Rash/Hives Verified 07/19/23 20:09 topiramate [From Topamax] Allergy Body goes Verified 07/19/23 20:09 numb Review of Systems ROS Statement: Those systems with pertinent positive or pertinent negative responses have been documented in the HPI. ROS Other: All systems not noted in ROS Statement are negative. Past Medical History Past Medical History: No Reported History Additional Past Medical History / Comment(s): migraines, back pain History of Any Multi-Drug Resistant Organisms: None Reported Past Surgical History: Section, Tonsillectomy Additional Past Surgical History / Comment(s): nose Past Psychological History: Bipolar Smoking Status: Current every day smoker, Current some day smoker, Vaper General Exam Limitations: no limitations General appearance: alert, in no apparent distress Head exam: Present: atraumatic, normocephalic, normal inspection Respiratory exam: Present: normal lung sounds bilaterally. Absent: respiratory distress, wheezes, rales, rhonchi, stridor Cardiovascular Exam: Present: regular rate, normal rhythm, normal heart sounds. Absent: systolic murmur, diastolic murmur, rubs, gallop, clicks Back exam: Present: tenderness (Left lower back) Neurological exam: Present: alert, oriented X3, CN II-XII intact Psychiatric exam: Present: normal affect, normal mood Skin exam: Present: warm, dry, intact, normal color. Absent: rash Course Vital Signs 07/19/23 07/19/23 07/19/23 20:03 21:57 22:45 Temperature 98.4 F 98.3 F 97.9 F Pulse Rate 88 74 67 Respiratory 22 20 19 Rate Blood Pressure 117/78 118/72 136/74 O2 Sat by Pulse 100 100 96 Oximetry Medical Decision Making - Medical Decision Making This is a 28 year old female who presents to the emergency department for lower back pain. Was pt. sent in by a medical professional or institution? @ -No Did you speak to anyone other than the patient for history? @ -No Did you review nursing and triage notes? @ -Yes, and I agree, it is accurate with regards to the patient's symptoms. Were old charts reviewed? @ -No Differential Diagnosis? @ -Differential Back Pain: Strain, zoster, cauda equina syndrome, epidural abscess, vertebral osteomyelitis, discitis, fracture, subluxation, disc herniation, DJD, spinal stenosis, dissection, AAA, pancreatitis, peptic ulcer disease, pyelonephritis, kidney stone, this is not meant to be an all-inclusive list. EKG interpreted by me (3pts min.)? @ -Not obtained X-rays interpreted by me (1pt min.)? @ -Not obtained CT interpreted by me (1pt min.)? @ -Not obtained U/S interpreted by me (1pt. min.)? @ -Not obtained What testing was considered but not performed? (CT, X-rays, U/S, labs)? Why? @ -None What meds were considered but not given? Why? @ -None Did you discuss the management of the patient with other professionals? @ -No Did you reconcile home meds? @ -No Was smoking cessation discussed for >3mins.? @ -I discussed smoking cessation for greater than 3 minutes. The risk of smoking were discussed with the patient including but not limited to risks of cancer, stroke, coronary artery disease and COPD. Also discussed with patient were multiple methods of quitting smoking. Lastly we discussed the financial cost of smoking. Was critical care preformed (if so, how long)? @ -No Were there social determinants of health that impacted care today? How? (Homelessness, low income, unemployed, alcoholism, drug addiction, transportation, low edu. Level, literacy, decrease access to med. care, [facility], rehab)? @ -No Was there de-escalation of care discussed even if they declined? (Discuss DNR or withdrawal of care, Hospice)? @ -No What co-morbidities impacted this encounter? (DM, HTN, Smoking, COPD, CAD, Cancer, CVA, Hep., AIDS, mental health diagnosis, sleep apnea, morbid obesity)? @ -Smoking Was patient admitted / discharged? @ -Discharged. Because this was an exacerbation of otherwise chronic pain without any new injuries, no imaging was obtained. Symptoms well-controlled in the emergency department. GC and Chlamydia testing ordered with results pending at the time of discharge. Will treat patient prophylactically for STD exposure. She was given 1g of ceftriaxone, 2g of metronidazole, and a prescription for doxycycline was provided. Naproxen, lidocaine patches, and Robaxin prescribed as well for lower back pain. Advised she follow back up with Dr. Melendez's office for reevaluation. Undiagnosed new problem with uncertain prognosis? @ -None Drug Therapy requiring intensive monitoring for toxicity (Heparin, Nitro, Insulin, Cardizem)? @ -None Were any procedures done? @ -None Diagnosis/symptom? @ -Low back pain Acute, or Chronic, or Acute on Chronic? @ -Chronic Uncomplicated (without systemic symptoms) or Complicated (systemic symptoms)? @ -Uncomplicated Side effects of treatment? @ -None Exacerbation, Progression, or Severe Exacerbation] @ -Exacerbation Poses a threat to life or bodily function? @ -No Return precautions reviewed in depth, the patient is instructed to return to the emergency department with any new, worsening, or concerning symptoms. Patient verbalized understanding. This case was discussed in detail with the attending ED physician, Dr. Chaney. Presentation, findings, and treatment plan discussed in detail as well. Disposition Clinical Impression: Strain of lumbar region, STD exposure, Nicotine dependence Disposition: HOME SELF-CARE Condition: Good Instructions (If sedation given, give patient instructions): Acute Low Back Pain (ED), Back Pain (ED) Additional Instructions: Return to the emergency department with any new, worsening, or concerning symptoms. Take the naproxen twice daily for pain relief. Do not take any other anti-inflammatories such as ibuprofen if you choose to take this, take one or the other. You may take it with Tylenol. Take the Robaxin as 1 to 2 tablets up to 3-4 times daily. Be aware that this may make you drowsy. You can also apply the lidocaine patches daily. Take the antibiotic as prescribed for 7 days for infectious prophylaxis. Follow up with your primary care provider in 1-[address] Melendez. Prescriptions: Doxycycline Hyclate 100 mg PO BID 7 Days #14 tab Lidocaine 5% Patch [Lidoderm 5% Patch] 1 patch TOPICAL DAILY PRN #30 patch PRN Reason: Pain Naproxen Sodium 550 mg PO BID PRN #20 tablet PRN Reason: Pain methocarbamoL [Robaxin-750] 1,500 mg PO TID PRN #30 tab PRN Reason: Pain Is patient prescribed a controlled substance at d/c from ED?: No Referrals: Anabel Sinclair MD [Primary Care Provider] - 1-2 days Time of Disposition: 21:57
[2023-07-19] MEDS: DEXAMETHASONE SOD PHOSPHATE 10 MG/ML 1 ML VIAL IVP STA (20:47)
[2023-07-19] MEDS: ORPHENADRINE 30 MG/ML 2 ML VIAL IVP STA (20:48)
[2023-07-19] MEDS: KETOROLAC 15 MG/ML 1 ML VIAL IVP STA (20:48)
[2023-07-19] MEDS: LIDOCAINE 4% PATCH TOPICAL ONE (20:49)
[2023-07-19] MEDS: MORPHINE SULFATE 4 MG/ML SYRINGE IVP STA (20:49)
[2023-07-19] MEDS: cefTRIAXone 1,000 MG VIAL (IM USE) IM STA (22:30)
[2023-07-19] MEDS: metroNIDAZOLE 500 MG TAB PO STA (22:30)
[2023-07-19] MEDS: ACET/COD 300 MG/30 MG STARTER PACK 6 TAB BTL PO STA (22:32)
[2023-07-19] MEDS: CYCLOBENZAPRINE 10MG STARTER 3 TAB BTL PO STA (22:33)
[2023-07-19 22:49] VITALS: BP 136/74; PULSE 67; RESP 19; TEMP 97.9
[2023-07-20 00:07] LABS: Appearance,Urine Cloudy (Clear); Bacteria,Urine Rare /hpf; Bilirubin,Urine Negative (Negative); Blood,Urine Negative (Negative); Color,Urine Light Yellow; Glucose,Urine (UA) Negative (Negative); Ketones,Urine Negative (Negative); Leukocyte Esterase,Urine Trace (Negative); Mucus,Urine Moderate /hpf; Nitrite,Urine Negative (Negative); PH, Urine 6.5 (5.0-8.0); Protein,Urine Negative (Negative); RBC,Urine 1 /hpf (0-5); Specific Gravity,Urine 1.016 (1.001-1.035); Squamous Epithelial Cell,Urine 5 /hpf (0-4); Urobilinogen,Urine <2.0 mg/dL (<2.0); WBC,Urine 2 /hpf (0-5)
== END 2023-07-19 22:45 | disposition home or self-care (01) ==
LOC: EC 19:57
DX: S39.012A Strain of muscle, fascia and tendon of lower back, initial encounter (principal); Z20.2 Contact with and (suspected) exposure to infections with a predominantly sexual mode of transmission; F17.290 Nicotine dependence, other tobacco product, uncomplicated; Z91.040 Latex allergy status; Z91.09 Other allergy status, other than to drugs and biological substances; Z88.8 Allergy status to other drugs, medicaments and biological substances; X58.XXXA Exposure to other specified factors, initial encounter
CPT/HCPCS: 87491; 99406; 99284; 96374; 96375 ×3; 96372; J2270; J1100; J2360; J0696; J1885; 81001; 87591

== ENCOUNTER 2023-08-19 16:07 | Emergency (ER) | payer OTHER ==
[2023-08-19 16:17] VITALS: TEMP 98.1
[2023-08-19 18:16] LABS: Appearance,Urine Clear (Clear); Bilirubin,Urine Negative (Negative); Blood,Urine Negative (Negative); Color,Urine Colorless; Glucose,Urine (UA) Negative (Negative); Ketones,Urine Negative (Negative); Leukocyte Esterase,Urine Negative (Negative); Nitrite,Urine Negative (Negative); PH, Urine 7.5 (5.0-8.0); Protein,Urine Negative (Negative); Specific Gravity,Urine 1.005 (1.001-1.035); Urobilinogen,Urine <2.0 mg/dL (<2.0)
[2023-08-19 18:24] LABS: Basophils % (A) 1 %; Eosinophils # (A) 0.2 k/uL (0-0.7); Eosinophils % (A) 3 %; HCT 38.8 % (34.0-46.0); HGB 12.8 gm/dL (11.4-16.0); Lymphocytes # (A) 2.5 k/uL (1.0-4.8); Lymphocytes % (A) 28 %; MCHC 33.1 g/dL (31.0-37.0); MCV 90.7 fL (80.0-100.0); Mean Platelet Volume 7.2; Monocytes # (A) 0.3 k/uL (0-1.0); Monocytes % (A) 3 %; Neutrophils # (A) 5.9 k/uL (1.3-7.7); Neutrophils % (A) 65 %; Platelet Count 269 k/uL (150-450); RBC 4.28 m/uL (3.80-5.40); RDW 13.5 % (11.5-15.5)
[2023-08-19 18:33] LABS: ALT 16 U/L (4-34); AST 17 U/L (14-36); African American GFR (CKD) >90 (>60 ml/min/1.73 sqM); Albumin 3.9 g/dL (3.5-5.0); Alkaline Phosphatase 49 U/L (38-126); Anion Gap 6 mmol/L; Blood Urea Nitrogen 8 mg/dL (7-17); Calcium 9.2 mg/dL (8.4-10.2); Carbon Dioxide 25 mmol/L (22-30); Chloride 105 mmol/L (98-107); Glucose 91 mg/dL (74-99); Non-African American GFR(CKD) >90 (>60 ml/min/1.73 sqM); Potassium 3.7 mmol/L (3.5-5.1); Sodium 136 mmol/L (137-145); Total Bilirubin 0.5 mg/dL (0.2-1.3); Total Protein 6.3 g/dL (6.3-8.2)
--- NOTE | 2023-08-19 19:10 | US ---
EXAMINATION TYPE: Transabdominal DATE OF EXAM: 08/19/2023 6:51 PM COMPARISON: NONE CLINICAL INDICATION: Female, 28 years old with history of ab pain 7 weeks; Patient states no pain. S ays that she went to [facility] today and had an ultrasound that only showed a GS with no YS or po le but is supposed to be 8 weeks. Patient states irregular cycles EXAM PERFORMED: Transvaginal (TV) and Transabdominal (TA) EXAM MEASUREMENTS: GESTATIONAL AGE / DATING Dates by LMP: (8weeks/0 days) EDC: 03/30/2024 Dates by First Scan: No previous this is first scan (Dates by Current Scan for: (6 weeks/6 days) Using GS measurements EDC: 04/07/2024 Exam slightly limited due to overlying bowel MATERNAL ANATOMY Uterus: 10.2 x 6.4 x 8.4 Right Ovary: 3.6 x 1.9 x 2.4 Left Ovary: 2.9 x 2.0 x 2.3. There is a 1.5 x 1.5 x 1.3cm possible isoechoic area seen in the left ov jayna. ? corpus luteum vs other. Post CDS / Adnexa: obscured by gas Presence of free fluid: no Presence of corpus luteal cyst: possible 1.6 x 1.5 x 1.3cm isoechoic area seen within the left ovary Presence of subchorionic bleed: Yes, there is a 0.8 x 1.7 x 0.3 cm hypoechoic area seen adjacent to t he gestational sac. GESTATION / SURVEY CRL: not seen MSD: 2.36 weeks/6 days) Yolk Sac (normal less than 6mm): not seen Date of LMP: Unknown Beta HcG (if available): Not available at this time IMPRESSION: Intrauterine cystic structure possibly representing representing a gestational sac. No yolk sac or fe koby pole visualized. Findings could represent blighted ovum versus spontaneous changes. Cont inued surveillance with ultrasound and serial beta-hCG as ectopic is not excluded.
--- NOTE | 2023-08-19 19:16 | ED ---
Recheck HPI - General Chief Complaint: Recheck/Abnormal Lab/Rx Stated Complaint: 7weeks preg/Abn US Time Seen by Provider: 08/19/23 16:29 Source: patient, RN notes reviewed Mode of arrival: ambulatory Limitations: no limitations - History of Present Illness Initial Comments: This is a 28-year-old female presents emergency department chief complaint of possible spontaneous . Patient states that she had her first appointment this morning with [facility] she was evaluated via ultrasound and labs. Patient reports the ultrasound stated that there was no signs of an intrauterine and that there was a cystic structure identified within the uterus. Patient states that this was her first appointment and US . Patient denies abdominal pain, vaginal bleeding, right upper quadrant pain. Patient has no acute complaints at this time. - Related Data Home Medications Medication Instructions Recorded Confirmed Albuterol Sulfate [Ventolin HFA] 2 puff INHALATION Q6H PRN 10/13/22 10/13/22 Divalproex ER [Depakote ER] 500 mg PO DAILY 10/13/22 10/13/22 Nitrofurantoin Monohyd/M-Cryst 100 mg PO BID 10/13/22 10/13/22 [Macrobid] Pantoprazole [Protonix] 40 mg PO DAILY 10/13/22 10/13/22 Previous Rx's Medication Instructions Recorded Ondansetron Odt [Zofran Odt] 4 mg PO Q8HR PRN #20 tab 09/26/21 Ibuprofen [Motrin] 800 mg PO Q8HR PRN #30 tab 02/12/22 Doxycycline Hyclate 100 mg PO BID 7 Days #14 tab 07/19/23 Lidocaine 5% Patch [Lidoderm 5% 1 patch TOPICAL DAILY PRN #30 patch 07/19/23 Patch] Naproxen Sodium 550 mg PO BID PRN #20 tablet 07/19/23 methocarbamoL [Robaxin-750] 1,500 mg PO TID PRN #30 tab 07/19/23 Allergies Allergy/AdvReac Type Severity Reaction Status Date / Time adhesive tape Allergy Rash/Hives Verified 08/19/23 16:15 latex Allergy Rash/Hives Verified 08/19/23 16:15 topiramate [From Topamax] Allergy Body goes Verified 08/19/23 16:15 numb Review of Systems ROS Statement: Those systems with pertinent positive or pertinent negative responses have been documented in the HPI. ROS Other: All systems not noted in ROS Statement are negative. Past Medical History Past Medical History: No Reported History Additional Past Medical History / Comment(s): migraines, back pain History of Any Multi-Drug Resistant Organisms: None Reported Past Surgical History: Section, Tonsillectomy Additional Past Surgical History / Comment(s): nose Past Psychological History: Bipolar Smoking Status: Current every day smoker, Current some day smoker, Vaper General Exam Limitations: no limitations General appearance: alert, in no apparent distress Eye exam: Present: normal appearance, PERRL, EOMI. Absent: scleral icterus, conjunctival injection, periorbital swelling ENT exam: Present: normal exam, mucous membranes moist Respiratory exam: Present: normal lung sounds bilaterally. Absent: respiratory distress, wheezes, rales, rhonchi, stridor Cardiovascular Exam: Present: regular rate, normal rhythm, normal heart sounds. Absent: systolic murmur, diastolic murmur, rubs, gallop, clicks GI/Abdominal exam: Present: soft, normal bowel sounds. Absent: distended, tenderness, guarding, rebound, rigid Extremities exam: Present: normal inspection, full ROM, normal capillary refill. Absent: tenderness, pedal edema, joint swelling, calf tenderness Neurological exam: Present: alert, oriented X3, CN II-XII intact Skin exam: Present: warm, dry, intact, normal color. Absent: rash Course Vital Signs 08/19/23 08/19/23 16:15 19:55 Temperature 98.1 F Pulse Rate 77 82 Respiratory 16 18 Rate Blood Pressure 121/80 112/53 O2 Sat by Pulse 99 99 Oximetry Medical Decision Making - Medical Decision Making Was pt. sent in by a medical professional or institution (, PA, [employer], urgent care, hospital, or penitentiary...) When possible be specific @ -Was referred by center to report to the emergency department for f urther evaluation of potential spontaneous . Did you speak to anyone other than the patient for history (EMS, parent, family, police, friend...)? What history was obtained from this source @ -No Did you review nursing and triage notes (agree or disagree)? Why? @ -I reviewed and agree with nursing and triage notes Were old charts reviewed (outside hosp., previous admission, EMS record, old EKG, old radiological studies, urgent care reports/EKG's, penitentiary records)? Report findings @ -No old charts were reviewed Differential Diagnosis (chest pain, altered mental status, abdominal pain women, abdominal pain men, vaginal bleeding, weakness, fever, dyspnea, syncope, headache, dizziness, GI bleed, back pain, seizure, CVA, palpatations, mental health, musculoskeletal)? @ -spontaneous , early , blighted ovum, this list is not all inclusive. EKG interpreted by me (3pts min.). @ -none X-rays interpreted by me (1pt min.). @ -None done CT interpreted by me (1pt min.). @ -None done U/S interpreted by me (1pt. min.). @ -transvaginal and transabdominal ultrasound reveals intrauterine cystic structure possibly representing stational sac, no yolk sac or pole visualized. Could represent blighted ovum versus spontaneous changes. What testing was considered but not performed or refused? (CT, X-rays, U/S, labs)? Why? @ -None What meds were considered but not given or refused? Why? @ -None Did you discuss the management of the patient with other professionals (professionals i.e. , PA, [employer], lab, RT, psych nurse, long term care social worker, press officer, teacher, personnel training officer, welfare case worker)? Give summary @ -No Was smoking cessation discussed for >3mins.? @ -No Was critical care preformed (if so, how long)? @ -No Were there social determinants of health that impacted care today? How? (Homelessness, low income, unemployed, alcoholism, drug addiction, transportation, low edu. Level, literacy, decrease access to med. care, detention, rehab)? @ -No Was there de-escalation of care discussed even if they declined (Discuss DNR or withdrawal of care, Hospice)? DNR status @ -No What co-morbidities impacted this encounter? (DM, HTN, Smoking, COPD, CAD, Cancer, CVA, ARF, Chemo, Hep., AIDS, mental health diagnosis, sleep apnea, morbid obesity)? @ -None Was patient admitted / discharged? Hospital course, mention meds given and route, prescriptions, significant lab abnormalities, going to OR and other pertinent info. @ -Discharge. 28-year-old female with possible miscarriage. On examination there are no acute findings. She will be evaluated via laboratory testing in addition to transvaginal ultrasound. BC, CMP unremarkable. UA no signs of infection. hCG level 36919, blood type O negative, not requiring RhoGam due to no vaginal bleeding during . Sound concerning for possible blighted ovum or spontaneous . Patient will be given a prescription for repeat hCG testing in 48 hours. Recommend that patient follows up with OB for repeat ultrasound testing as well. Strict return parameters discussed with the patient that if she begins to experience abdominal cramping or abdominal pain and vaginal bleeding report back to the ER. Patient verbalized understanding. Case discussed with Dr. Mullen. Undiagnosed new problem with uncertain prognosis? @ -No Drug Therapy requiring intensive monitoring for toxicity (Heparin, Nitro, Insulin, Cardizem)? @ -No Were any procedures done? @ -No Diagnosis/symptom? @ -abnormal ultrasound during , elevated hCG, possible spontaneous . Acute, or Chronic, or Acute on Chronic? @ -acute Uncomplicated (without systemic symptoms) or Complicated (systemic symptoms)? @ -uncomplicated Side effects of treatment? @ -No Exacerbation, Progression, or Severe Exacerbation? @ -No Poses a threat to life or bodily function? How? (Chest pain, [place], [place], pneumonia, PE, COPD, DKA, ARF, appy, cholecystitis, CVA, Diverticulitis, Homicidal, Suicidal, threat to staff... and all critical care pts) @ -No - Lab Data Result diagrams: 08/19/23 18:13 08/19/23 18:13 Lab Results 08/19/23 08/19/23 08/19/23 Range/Units 16:19 16:19 18:13 WBC 9.0 (3.8-10.6) k/uL RBC 4.28 (3.80-5.40) m/uL Hgb 12.8 (11.4-16.0) gm/dL Hct 38.8 (34.0-46.0) % MCV 90.7 (80.0-100.0) fL MCH 30.0 (25.0-35.0) pg MCHC 33.1 (31.0-37.0) g/dL RDW 13.5 (11.5-15.5) % Plt Count 269 (150-450) k/uL MPV 7.2 Neutrophils % 65 % Lymphocytes % 28 % Monocytes % 3 % Eosinophils % 3 % Basophils % 1 % Neutrophils # 5.9 (1.3-7.7) k/uL Lymphocytes # 2.5 (1.0-4.8) k/uL Monocytes # 0.3 (0-1.0) k/uL Eosinophils # 0.2 (0-0.7) k/uL Basophils # 0.0 (0-0.2) k/uL Sodium (137-145) mmol/L Potassium (3.5-5.1) mmol/L Chloride (98-107) mmol/L Carbon Dioxide (22-30) mmol/L Anion Gap mmol/L BUN (7-17) mg/dL Creatinine (0.52-1.04) mg/dL Est GFR (CKD-EPI)AfAm (>60 ml/min/1.73 sqM) Est GFR (CKD-EPI)NonAf (>60 ml/min/1.73 sqM) Glucose (74-99) mg/dL Calcium (8.4-10.2) mg/dL Total Bilirubin (0.2-1.3) mg/dL AST (14-36) U/L ALT (4-34) U/L Alkaline Phosphatase (38-126) U/L Total Protein (6.3-8.2) g/dL Albumin (3.5-5.0) g/dL HCG, Quant mIU/mL Urine Color Colorless Urine Appearance Clear (Clear) Urine pH 7.5 (5.0-8.0) Ur Specific [place] 1.005 (1.001-1.035) Urine Protein Negative (Negative) Urine Glucose (UA) Negative (Negative) Urine Ketones Negative (Negative) Urine Blood Negative (Negative) Urine Nitrite Negative (Negative) Urine Bilirubin Negative (Negative) Urine Urobilinogen <2.0 (<2.0) mg/dL Ur Leukocyte Esterase Negative (Negative) Urine HCG, Qual Detected (Not Detectd) Blood Type Blood Type Recheck Bld Type Recheck Status 08/19/23 08/19/23 Range/Units 18:13 18:13 WBC (3.8-10.6) k/uL RBC (3.80-5.40) m/uL Hgb (11.4-16.0) gm/dL Hct (34.0-46.0) % MCV (80.0-100.0) fL MCH (25.0-35.0) pg MCHC (31.0-37.0) g/dL RDW (11.5-15.5) % Plt Count (150-450) k/uL MPV Neutrophils % % Lymphocytes % % Monocytes % % Eosinophils % % Basophils % % Neutrophils # (1.3-7.7) k/uL Lymphocytes # (1.0-4.8) k/uL Monocytes # (0-1.0) k/uL Eosinophils # (0-0.7) k/uL Basophils # (0-0.2) k/uL Sodium 136 L (137-145) mmol/L Potassium 3.7 (3.5-5.1) mmol/L Chloride 105 (98-107) mmol/L Carbon Dioxide 25 (22-30) mmol/L Anion Gap 6 mmol/L BUN 8 (7-17) mg/dL Creatinine 0.65 (0.52-1.04) mg/dL Est GFR (CKD-EPI)AfAm >90 (>60 ml/min/1.73 sqM) Est GFR (CKD-EPI)NonAf >90 (>60 ml/min/1.73 sqM) Glucose 91 (74-99) mg/dL Calcium 9.2 (8.4-10.2) mg/dL Total Bilirubin 0.5 (0.2-1.3) mg/dL AST 17 (14-36) U/L ALT 16 (4-34) U/L Alkaline Phosphatase 49 (38-126) U/L Total Protein 6.3 (6.3-8.2) g/dL Albumin 3.9 (3.5-5.0) g/dL HCG, Quant 81424.9 mIU/mL Urine Color Urine Appearance (Clear) Urine pH (5.0-8.0) Ur Specific [place] (1.001-1.035) Urine Protein (Negative) Urine Glucose (UA) (Negative) Urine Ketones (Negative) Urine Blood (Negative) Urine Nitrite (Negative) Urine Bilirubin (Negative) Urine Urobilinogen (<2.0) mg/dL Ur Leukocyte Esterase (Negative) Urine HCG, Qual (Not Detectd) Blood Type O Negative Blood Type Recheck O Neg Bld Type Recheck Status No Disposition Clinical Impression: Abnormal ultrasound Disposition: HOME SELF-CARE Condition: Good Instructions (If sedation given, give patient instructions): Threatened Miscarriage (ED) Additional Instructions: Return to the emergency department if your symptoms worsen or not improve. Repeat hCG testing in 48 hours and recommend that you repeat ultrasound testing with your OB. Is patient prescribed a controlled substance at d/c from ED?: No Referrals: Anabel Sinclair MD [Primary Care Provider] - 1-2 days Time of Disposition: 19:15
[2023-08-19 19:20] LABS: HCG,Quantitative Serum 19355.9 mIU/mL
[2023-08-19 19:57] VITALS: BP 112/53; PULSE 82; RESP 18
== END 2023-08-19 20:01 | disposition home or self-care (01) ==
LOC: EC 16:07
DX: Z36.89 Encounter for other specified antenatal screening (principal); O99.331 Smoking (tobacco) complicating pregnancy, first trimester; F17.290 Nicotine dependence, other tobacco product, uncomplicated; Z91.040 Latex allergy status; Z91.048 Other nonmedicinal substance allergy status; Z88.8 Allergy status to other drugs, medicaments and biological substances; Z3A.01 Less than 8 weeks gestation of pregnancy
CPT/HCPCS: 36415; 76801; 76817; 80053; 81003; 81025; 84702; 85025; 86900; 86901; 99284

== ENCOUNTER → 2023-08-21 | Outpatient (CLI) | payer OTHER | END | disposition home or self-care (01) | LOC: LABMAIN 23:00 | PROVIDERS: ATTEND Physician Assistant | DX: O20.0 Threatened abortion (principal); Z3A.00 Weeks of gestation of pregnancy not specified | CPT/HCPCS: 84702 ==

== ENCOUNTER 2023-08-28 01:19 | Emergency (ER) | payer OTHER ==
[2023-08-28 01:26] VITALS: TEMP 98.3
[2023-08-28 02:37] VITALS: RESP 16
--- NOTE | 2023-08-28 03:39 | US ---
EXAM: US First Trimester , Transabdominal CLINICAL HISTORY: Bleeding in early TECHNIQUE: Real-time transabdominal obstetrical ultrasound of the maternal pelvis and a first trimester with image documentation. COMPARISON: Pelvic ultrasound 08/19/2023 FINDINGS: Gestation: The previously noted cystic structure centrally in the uterus is now somewhat contracted with lobular contours and marginal echogenic components. The structure measures 2.5 x 2.2 x 2.8 cm from 2.3 x 2.4 x 2.1 cm previously. No definite pole or yolk sac noted. There is a heterogeneously hypoechoic area adjacent to the abnormal presumed gestational sac measuring 2.7 x 2.4 x 3.4 cm. Placenta/amniotic fluid: Cannot be adequately evaluated due to the early gestational age. Uterus/cervix: The uterus measures 11.6 x 7.4 x 7.3 cm. No myometrial mass. Ovaries: The right ovary measures 2.7 x 3.3 x 2.3 cm. The left ovary measures 3.2 x 3.4 x 2.1 cm. No adnexal mass. Free fluid: No free fluid. IMPRESSION: 1. The previously noted cystic structure centrally in the uterus is now somewhat contracted with lobular contours and marginal echogenic components. The structure measures 2.5 x 2.2 x 2.8 cm from 2.3 x 2.4 x 2. 1 cm previously. No definite pole or yolk sac noted. Findings may represent failure. However, subtle interval increase in size is concerning for a potential developing molar type . Please correlate with potential serial increasing beta-hCG levels. 2. There is a heterogeneously hypoechoic area adjacent to the abnormal presumed gestational sac measuring 2.7 x 2.4 x 3.4 cm. Findings are most consistent with interval enlargement in the previously noted subchorionic hemorrhage.
--- NOTE | 2023-08-28 05:13 | ED ---
Abdominal Pain HPI - General Chief Complaint: OB/Uterine Contractions Stated Complaint: cramping,ABD Pain, POS Time Seen by Provider: 08/28/23 01:49 Source: patient Mode of arrival: ambulatory Limitations: no limitations - History of Present Illness Initial Comments: This patient is a 28-year-old woman approximately 9 weeks who presents with complaint of low abdominal cramping. The patient states she has been seen previously in emergency departments twice for pelvic cramping. She states she was diagnosed as but then that her second hCG was going down and she was told she was in the process of having a miscarriage. The patient has not had any vaginal bleeding or passed any tissue. She states that she does have upcoming bottle washer machine appointment. Patient has not no fever or chills. No other vaginal discharge. MD Complaint: abdominal pain -: days(s) Location: LLQ, RLQ, suprapubic Radiation: none Migration to: no migration Severity: moderate Quality: cramping Consistency: intermittent Improves With: nothing Worsens With: nothing Associated Symptoms: denies other symptoms - Related Data Home Medications Medication Instructions Recorded Confirmed Albuterol Sulfate [Ventolin HFA] 2 puff INHALATION Q6H PRN 10/13/22 10/13/22 Divalproex ER [Depakote ER] 500 mg PO DAILY 10/13/22 10/13/22 Nitrofurantoin Monohyd/M-Cryst 100 mg PO BID 10/13/22 10/13/22 [Macrobid] Pantoprazole [Protonix] 40 mg PO DAILY 10/13/22 10/13/22 Previous Rx's Medication Instructions Recorded Ondansetron Odt [Zofran Odt] 4 mg PO Q8HR PRN #20 tab 09/26/21 Ibuprofen [Motrin] 800 mg PO Q8HR PRN #30 tab 02/12/22 Doxycycline Hyclate 100 mg PO BID 7 Days #14 tab 07/19/23 Lidocaine 5% Patch [Lidoderm 5% 1 patch TOPICAL DAILY PRN #30 patch 07/19/23 Patch] Naproxen Sodium 550 mg PO BID PRN #20 tablet 07/19/23 methocarbamoL [Robaxin-750] 1,500 mg PO TID PRN #30 tab 07/19/23 Allergies Allergy/AdvReac Type Severity Reaction Status Date / Time adhesive tape Allergy Rash/Hives Verified 08/28/23 01:26 latex Allergy Rash/Hives Verified 08/28/23 01:26 topiramate [From Topamax] Allergy Body goes Verified 08/28/23 01:26 numb Review of Systems ROS Statement: Those systems with pertinent positive or pertinent negative responses have been documented in the HPI. ROS Other: All systems not noted in ROS Statement are negative. Constitutional: Denies: fever, chills, weakness Respiratory: Denies: cough, dyspnea Cardiovascular: Denies: chest pain, palpitations, edema Gastrointestinal: Reports: abdominal pain. Denies: nausea, vomiting, diarrhea, constipation Genitourinary: Denies: dysuria, frequency, hematuria, discharge, abnormal menses Musculoskeletal: Denies: back pain Skin: Denies: rash Neurological: Denies: headache, weakness, numbness Past Medical History Past Medical History: No Reported History Additional Past Medical History / Comment(s): migraines, back pain History of Any Multi-Drug Resistant Organisms: MRSA Past Surgical History: Section, Tonsillectomy Additional Past Surgical History / Comment(s): nose Past Psychological History: Bipolar Smoking Status: Current every day smoker, Vaper Past Alcohol Use History: None Reported Past Drug Use History: None Reported General Exam Limitations: no limitations General appearance: alert, in no apparent distress Head exam: Present: atraumatic, normocephalic Eye exam: Present: normal appearance. Absent: scleral icterus, conjunctival injection Neck exam: Present: normal inspection Respiratory exam: Present: normal lung sounds bilaterally. Absent: respiratory distress, wheezes, rales, rhonchi, stridor, accessory muscle use Cardiovascular Exam: Present: regular rate, normal rhythm, normal heart sounds. Absent: systolic murmur, diastolic murmur, rubs, gallop GI/Abdominal exam: Present: soft. Absent: distended, tenderness, guarding, rebound, rigid, mass, pulsatile mass, hernia Extremities exam: Present: normal inspection, normal capillary refill. Absent: pedal edema, calf tenderness Back exam: Present: normal inspection. Absent: CVA tenderness (R), CVA tenderness (L) Neurological exam: Absent: alert Skin exam: Present: warm, dry, intact, normal color. Absent: rash Course Vital Signs 08/28/23 08/28/23 08/28/23 01:24 02:33 05:29 Temperature 98.3 F Pulse Rate 114 H 86 90 Respiratory 20 16 16 Rate Blood Pressure 137/92 113/76 101/59 O2 Sat by Pulse 99 97 98 Oximetry Medical Decision Making - Medical Decision Making This patient is a 28-year-old woman approximately 9 weeks . The patient having cramping but no bleeding. The patient's HCG is decreasing. The ultrasound, per my interpretation, does show small intrauterine finding suspected impending miscarriage. The patient does have close follow-up coming with bottle washer machine. We discussed return parameters. Was pt. sent in by a medical professional or institution (, PA, BLOOD TYPER, urgent care, hospital, or correction...) When possible be specific @ -[No] Did you speak to anyone other than the patient for history (EMS, parent, family, police, friend...)? What history was obtained from this source @ -The patient's partner contributed to history Did you review nursing and triage notes (agree or disagree)? Why? @ -[I reviewed and agree with nursing and triage notes] Were old charts reviewed (outside hosp., previous admission, EMS record, old EKG, old radiological studies, urgent care reports/EKG's, correction records)? Report findings @ -[No old charts were reviewed] Differential Diagnosis (chest pain, altered mental status, abdominal pain women, abdominal pain men, vaginal bleeding, weakness, fever, dyspnea, syncope, headache, dizziness, GI bleed, back pain, seizure, CVA, palpatations, mental health, musculoskeletal)? @ -[Differential Abdominal Pain Women: Appendicitis, Cholecystitis, diverticulosis, ischemic bowel, pancreatitis, hepatitis, UTI, gastroenteritis, AAA, incarcerated hernia, bowel obstruction, constipation, inflammatory bowel, hepatitis, peptic ulcer disease, splenic infarction, perforated viscus, vulvitis, ovarian torsion, PID, kidney stone, placenta abruption, this is not meant to be an all-inclusive list EKG interpreted by me (3pts min.). @ -[As above] X-rays interpreted by me (1pt min.). @ -[None done] CT interpreted by me (1pt min.). @ -[None done] U/S interpreted by me (1pt. min.). @ -[I interpreted as above What testing was considered but not performed or refused? (CT, X-rays, U/S, labs)? Why? @ -[None] What meds were considered but not given or refused? Why? @ -[Consideration of RhoGAM but patient not actively bleeding and she has follow-up with bottle washer machine Did you discuss the management of the patient with other professionals (professionals i.e. , PA, BLOOD TYPER, lab, RT, psych nurse, director of social media marketing, division chair, teacher, police commanding officer, case planner)? Give summary @ -[No] Was smoking cessation discussed for >3mins.? @ -[No] Was critical care preformed (if so, how long)? @ -[No] Were there social determinants of health that impacted care today? How? (Homelessness, low income, unemployed, alcoholism, drug addiction, transportation, low edu. Level, literacy, decrease access to med. care, senior living, rehab)? @ -[No] Was there de-escalation of care discussed even if they declined (Discuss DNR or withdrawal of care, Hospice)? DNR status @ -[No] What co-morbidities impacted this encounter? (DM, HTN, Smoking, COPD, CAD, Cancer, CVA, ARF, Chemo, Hep., AIDS, mental health diagnosis, sleep apnea, morbid obesity)? @ -[None] Was patient admitted / discharged? Hospital course, mention meds given and route, prescriptions, significant lab abnormalities, going to OR and other pertinent info. @ -[As above Undiagnosed new problem with uncertain prognosis? @ -[No] Drug Therapy requiring intensive monitoring for toxicity (Heparin, Nitro, Insulin, Cardizem)? @ -[No] Were any procedures done? @ -[No] Diagnosis/symptom? @ -[Acute impending miscarriage Acute, or Chronic, or Acute on Chronic? @ -[Acute Uncomplicated (without systemic symptoms) or Complicated (systemic symptoms)? @ -[Uncomplicated Side effects of treatment? @ -[No] Exacerbation, Progression, or Severe Exacerbation? @ -[No] Poses a threat to life or bodily function? How? (Chest pain, [place], [place], pneumonia, PE, COPD, DKA, ARF, appy, cholecystitis, CVA, Diverticulitis, Homicidal, Suicidal, threat to staff... and all critical care pts) @ -[No] - Lab Data Lab Results 08/28/23 Range/Units 03:47 HCG, Quant 5666.5 mIU/mL Disposition Clinical Impression: Miscarriage Disposition: HOME SELF-CARE Condition: Fair Instructions (If sedation given, give patient instructions): Miscarriage (ED) Is patient prescribed a controlled substance at d/c from ED?: No Referrals: Anabel Sinclair MD [Primary Care Provider] - 1-2 days Fani Sewell DO [Doctor of Osteopathic Medicine] - 1-2 days
[2023-08-28 05:30] VITALS: BP 101/59; PULSE 90
== END 2023-08-28 05:30 | disposition home or self-care (01) ==
LOC: EC 01:19
DX: O03.9 Complete or unspecified spontaneous abortion without complication (principal); F17.290 Nicotine dependence, other tobacco product, uncomplicated; Z91.040 Latex allergy status; Z91.09 Other allergy status, other than to drugs and biological substances; Z88.8 Allergy status to other drugs, medicaments and biological substances
CPT/HCPCS: 36415; 76801; 84702; 99284

== ENCOUNTER → 2023-10-22 | Outpatient (CLI) | payer OTHER ==
--- NOTE | 2023-10-22 14:47 | XR ---
EXAMINATION TYPE: XR KUB DATE OF EXAM: 10/22/2023 Comparison: None Clinical History: 28-year-old female Z87.442 PERSONAL HISTORY OF URINARY CALCULI Findings: Overgrown left L5 transverse process with incomplete bridging with the sacrum. Nonobstructive bowel g as pattern. No suspicious calcifications identified. Tiny pelvic phleboliths. Mxgu-cd-aqrbwmlu stool is present. Impression: Nonobstructive bowel gas pattern. Sfja-we-rwmkhuty stool. Tiny pelvic phleboliths.
== END | disposition home or self-care (01) ==
LOC: RADXRMAIN 09:57
PROVIDERS: ATTEND Registered Nurse
DX: Z87.442 Personal history of urinary calculi
CPT/HCPCS: 74018

== ENCOUNTER 2023-10-28 21:55 | Emergency (ER) | payer OTHER ==
[2023-10-28 22:00] VITALS: BP 134/83; PULSE 106; RESP 18; TEMP 98
--- NOTE | 2023-10-28 22:32 | ED ---
ENT HPI - General Chief complaint: ENT Stated complaint: Sore Throat Time Seen by Provider: 10/28/23 22:16 Source: patient, RN notes reviewed, old records reviewed Mode of arrival: ambulatory Limitations: no limitations - History of Present Illness Initial comments: This is a 28 female to the ER for evaluation of a significant sore throat and sore throat with facial swelling neck swelling patient has some mild difficulty swallowing no fevers feels like she has strep throat MD complaint: sore throat -: days(s) Location: throat Severity: moderate Severity scale (1-10): 5 Quality: aching Consistency: constant Improves with: none Worsens with: swallowing Associated Symptoms: sore throat - Related Data Home Medications Medication Instructions Recorded Confirmed Albuterol Sulfate [Ventolin HFA] 2 puff INHALATION Q6H PRN 10/13/22 10/13/22 Divalproex ER [Depakote ER] 500 mg PO DAILY 10/13/22 10/13/22 Nitrofurantoin Monohyd/M-Cryst 100 mg PO BID 10/13/22 10/13/22 [Macrobid] Pantoprazole [Protonix] 40 mg PO DAILY 10/13/22 10/13/22 Previous Rx's Medication Instructions Recorded Ondansetron Odt [Zofran Odt] 4 mg PO Q8HR PRN #20 tab 09/26/21 Ibuprofen [Motrin] 800 mg PO Q8HR PRN #30 tab 02/12/22 Doxycycline Hyclate 100 mg PO BID 7 Days #14 tab 07/19/23 Lidocaine 5% Patch [Lidoderm 5% 1 patch TOPICAL DAILY PRN #30 patch 07/19/23 Patch] Naproxen Sodium 550 mg PO BID PRN #20 tablet 07/19/23 methocarbamoL [Robaxin-750] 1,500 mg PO TID PRN #30 tab 07/19/23 Amoxic-Pot Clav 875-125Mg 1 tab PO Q12HR #20 tablet 10/28/23 [Augmentin 875-125] Allergies Allergy/AdvReac Type Severity Reaction Status Date / Time adhesive tape Allergy Rash/Hives Verified 10/28/23 22:01 latex Allergy Rash/Hives Verified 10/28/23 22:01 topiramate [From Topamax] Allergy Body goes Verified 10/28/23 22:01 numb Review of Systems ROS Statement: Those systems with pertinent positive or pertinent negative responses have been documented in the HPI. ROS Other: All systems not noted in ROS Statement are negative. Past Medical History Past Medical History: No Reported History Additional Past Medical History / Comment(s): migraines, back pain History of Any Multi-Drug Resistant Organisms: MRSA Past Surgical History: Section, Tonsillectomy Additional Past Surgical History / Comment(s): nose Past Psychological History: Bipolar Smoking Status: Current every day smoker, Vaper Past Alcohol Use History: None Reported Past Drug Use History: None Reported General Exam Limitations: no limitations General appearance: alert, in no apparent distress Head exam: Present: atraumatic, normocephalic, normal inspection Eye exam: Present: normal appearance, PERRL, EOMI. Absent: scleral icterus, conjunctival injection, periorbital swelling ENT exam: Present: normal exam, mucous membranes moist Neck exam: Present: normal inspection. Absent: tenderness, meningismus, lymphadenopathy Respiratory exam: Present: normal lung sounds bilaterally. Absent: respiratory distress, wheezes, rales, rhonchi, stridor Cardiovascular Exam: Present: regular rate, normal rhythm, normal heart sounds. Absent: systolic murmur, diastolic murmur, rubs, gallop, clicks GI/Abdominal exam: Present: soft, normal bowel sounds. Absent: distended, t enderness, guarding, rebound, rigid Extremities exam: Present: normal inspection, full ROM, normal capillary refill. Absent: tenderness, pedal edema, joint swelling, calf tenderness Back exam: Present: normal inspection Neurological exam: Present: alert, oriented X3, CN II-XII intact Psychiatric exam: Present: normal affect, normal mood Skin exam: Present: warm, dry, intact, normal color. Absent: rash Course Vital Signs 10/28/23 21:55 Temperature 98.0 F Pulse Rate 106 H Respiratory 18 Rate Blood Pressure 134/83 O2 Sat by Pulse 98 Oximetry - Reevaluation(s) Reevaluation #1: Medical records reviewed Reevaluation #2: Patient symptoms unchanged Reevaluation #3: Patient informed of results and questions answered Reevaluation #4: Was pt. sent in by a medical professional or institution (, PA, MEMBERSHIP SECRETARY, urgent care, hospital, or intermediate...) When possible be specific @ -no Did you speak to anyone other than the patient for history (EMS, parent, family, police, friend...)? What history was obtained from this source @ -no Did you review nursing and triage notes (agree or disagree)? Why? @ -agree Are old charts reviewed (outside hosp., previous admission, EMS record, old EKG, old radiological studies, urgent care reports/EKG's, intermediate records)? Report findings @ -yes Differential Diagnosis (chest pain, altered mental status, abdominal pain women, abdominal pain men, vaginal bleeding, weakness, fever, dyspnea, syncope, headache, dizziness, GI bleed, back pain, seizure, CVA, palpatations, mental health, musculoskeletal)? @ -prior EKG interpreted by me (3pts min.). @ -no X-rays interpreted by me (1pt min.). @ -no CT interpreted by me (1pt min.). @ -no U/S interpreted by me (1pt. min.). @ -no What testing was considered but not performed or refused? (CT, X-rays, U/S, labs)? Why? @ -none What meds were considered but not given or refused? Why? @ -none Did you discuss the management of the patient with other professionals (professionals i.e. , PA, MEMBERSHIP SECRETARY, lab, RT, psych nurse, social work therapist, environmental lawyer, teacher, philanthropy officer, case finishing machine adjuster)? Give summary @ -no Was smoking cessation discussed for >3mins.? @ -no Was critical care preformed (if so, how long)? @ -no Were there social determinants of health that impacted care today? How? (Homel essness, low income, unemployed, alcoholism, drug addiction, transportation, low edu. Level, literacy, decrease access to med. care, correction, rehab)? @ -none Was there de-escalation of care discussed even if they declined (Discuss DNR or withdrawal of care, Hospice)? DNR status @ -no What co-morbidities impacted this encounter? (DM, HTN, Smoking, COPD, CAD, Cancer, CVA, ARF, Chemo, Hep., AIDS, mental health diagnosis, sleep apnea, morbid obesity)? @ -none Was patient admitted / discharged? Hospital course, mention meds given and route, prescriptions, significant lab abnormalities, going to OR and other pertinent info. @ - 28 female to ER for tonsillitis pharyngitis patient placed antibiotics and can be discharged home Discharge Undiagnosed new problem with uncertain prognosis? @ -no Drug Therapy requiring intensive monitoring for toxicity (Heparin, Nitro, Insulin, Cardizem)? @ -no Were any procedures done? @ -no Diagnosis/symptom? @ -Tonsillitis pharyngitis Acute, or Chronic, or Acute on Chronic? @ -Acute Uncomplicated (without systemic symptoms) or Complicated (systemic symptoms)? @ -Complicated Side effects of treatment? @ -no Exacerbation, Progression, or Severe Exacerbation? @ -exacerbation Poses a threat to life or bodily function? How? (Chest pain, [place], [place], pneumonia, PE, COPD, DKA, ARF, appy, cholecystitis, CVA, Diverticulitis, Homicidal, Suicidal, threat to staff... and all critical care pts) @ -no Medical Decision Making - Medical Decision Making 28 female to ER for tonsillitis pharyngitis patient placed antibiotics and can be discharged home Disposition Clinical Impression: Acute tonsillitis, Pharyngitis Disposition: HOME SELF-CARE Instructions (If sedation given, give patient instructions): Pharyngitis (ED) Prescriptions: Amoxic-Pot Clav 875-125Mg [Augmentin 875-125] 1 tab PO Q12HR #20 tablet Is patient prescribed a controlled substance at d/c from ED?: No Referrals: Anabel Sinclair MD [Primary Care Provider] - 1-2 days Time of Disposition: 22:30
[2023-10-28] MEDS: AMOXIC-POT CLAV 875MG STARTER PACK 2 TAB BTL PO STA (22:43)
[2023-10-28] MEDS: ACETAMINOPHEN TAB 500 MG TAB PO STA (22:43)
[2023-10-28] MEDS: AMOXIC-POT CLAV 875-125MG 1 EACH TAB PO STA (22:43)
[2023-10-28] MEDS: IBUPROFEN 800 MG TAB PO STA (22:43)
[2023-10-28] MEDS: DEXAMETHASONE SOD PHOSPHATE 10 MG/ML 1 ML VIAL IM STA (22:44)
== END 2023-10-28 22:49 | disposition home or self-care (01) ==
LOC: EC 21:55
CPT/HCPCS: 96372; 99282

== ENCOUNTER → 2024-05-25 | Outpatient (CLI) | payer OTHER ==
[2024-05-25 14:42] VITALS: BP 122/85; PULSE 82; RESP 16; TEMP 97.7
--- NOTE | 2024-05-25 15:43 | P.SLEEP ---
History of Present Illness DATE: 05/25/2024 CONSULTATION/NEW PATIENT EVALUATION HISTORY OF PRESENT ILLNESS/SLEEP-WAKE EVALUATION: 29-year-old lady had been e valuated in the sleep center for possible obstructive sleep apnea hypopnea syndrome. SLEEP SCHEDULE: Usually sleep schedule from 2 AM until 7 AM 7 days a week. FALLING ASLEEP: No problems with falling asleep. DURING SLEEP: Patient sleeps in different positions, has loud snoring, wakes up from sleep with nocturia. No history of hypnogogical hallucinations, sleep paralysis, or cataplexy. DURING THE DAY/WAKE STATE: In the morning patient wake up tired, falling asleep during the day, has problems with memory.. [place] sleepiness scale is significantly increased to 13. She may take naps during the day. PAST MEDICAL HISTORY: Headaches, acid reflux, iron deficiency anemia. PAST SURGICAL HISTORY: . MEDICATIONS: Please see below. SOCIAL HISTORY: Please see below. FAMILY HISTORY: Please see below. REVIEW OF SYSTEMS: Loud snoring, sleepiness during the day. No fevers. No double vision. No recent chest pain. No shortness of breath. No abdominal pain. No bleeding episodes. No blood in urine. No seizure episodes. PHYSICAL EXAMINATION: GENERAL: A pleasant patient without any distress. VITAL SIGNS: See below, weight 269 pounds, BMI 43.4. HEENT: PERRLA, EOMI. Evaluation of oropharynx showed tongue protrudes midline, low position of soft palate Mallampati 34. NECK: Supple. No JVD. Thyroid is not palpable. 16-1/4 inches in circumference. LUNGS: Clear to percussion and to auscultation. Good air exchange. No wheezing or rhonchi. HEART: S1, S2 regular. No murmurs, gallops or rubs. ABDOMEN: Soft and nontender. Bowel sounds are present. No organomegaly apprecia nitin. EXTREMITIES: No clubbing or cyanosis. LATEXER: Awake, alert, and oriented x3. Cranial nerves 2 to 7 intact. There is no fasciculation or atrophy noted. No focal deficits observed. ASSESSMENT: 1. Loud snoring, extremely low position of soft palate Mallampati 34, wide neck 16-1/4 inches in circumference, sleepiness with [place] Sleepiness Scale 13. Obstructive sleep apnea hypopnea syndrome. 2. Significant sleepiness diagnosis include hypersomnia and narcolepsy. 3. Headaches. 4. Acid reflux. 5 history of iron deficiency anemia. 6 . Status post . 7. Obesity, BMI 43.4 PLAN: 1. Polysomnography for evaluation of patient's breathing during sleep. MSLT, if sleep study will be negative for obstructive sleep apnea hypopnea syndrome. 2. Following plan after reading sleep study 3. Preferable position during sleep on the side. 4. No driving if patient feels any sleepiness. Patient is aware of civil and criminal liability for unsafe driving. 5. Sleep hygiene with regular sleep time for at least 7.5-8 hours. 6. Watching and losing weight. Thank you very much for referring this patient for consultation. Sincerely, Balbir Hammond MD, PhD, FAASM. Diplomat of [place] [employer], Sleep Medicine Board by [place] [employer] [place] [employer] Guest Relations Agent of [employer] [facility] [place] cc: Jennie Lambert CONTINUOUS IMPROVEMENT COACH-Walter Past Medical History Past Medical History: GERD/Reflux Additional Past Medical History / Comment(s): migraines, back pain, Bipolar, pelvic pain - have a piece of my pelvic missing and my ankles give out on me, anemic, History of Any Multi-Drug Resistant Organisms: MRSA Date of last positivie culture/infection: 2008 - entire buttocks MDRO Source:: buttocks Past Surgical History: Section, Tonsillectomy Additional Past Surgical History / Comment(s): re-broke nose, upper and inner scope Past Psychological History: ADD/ADHD, Anxiety, Bipolar, Depression Smoking Status: Current every day smoker, Vaper Past Alcohol Use History: None Reported Past Drug Use History: Marijuana - Past Family History Mother Additional Family Medical History / Comment(s): In and out of the hospital for her heart but they keep telling her theres nothing wrong. Anemia Father Family Medical History: Diabetes Mellitus Medications and Allergies Home Medications Medication Instructions Recorded Confirmed Type Ondansetron Odt [Zofran Odt] 4 mg PO Q8HR PRN #20 tab 09/26/21 10/13/22 Rx Ibuprofen [Motrin] 800 mg PO Q8HR PRN #30 tab 02/12/22 10/13/22 Rx Albuterol Sulfate [Ventolin HFA] 2 puff INHALATION Q6H PRN 10/13/22 10/13/22 History Divalproex ER [Depakote ER] 500 mg PO DAILY 10/13/22 05/25/24 History Nitrofurantoin Monohyd/M-Cryst 100 mg PO BID 10/13/22 10/13/22 History [Macrobid] Pantoprazole [Protonix] 40 mg PO DAILY 10/13/22 05/25/24 History Doxycycline Hyclate 100 mg PO BID 7 Days #14 tab 07/19/23 Rx Lidocaine 5% Patch [Lidoderm 5% 1 patch TOPICAL DAILY PRN #30 patch 07/19/23 Rx Patch] Naproxen Sodium 550 mg PO BID PRN #20 tablet 07/19/23 Rx methocarbamoL [Robaxin-750] 1,500 mg PO TID PRN #30 tab 07/19/23 Rx Amoxic-Pot Clav 875-125Mg 1 tab PO Q12HR #20 tablet 10/28/23 Rx [Augmentin 875-125] Ferrous Sulfate [Feosol] 325 mg PO DAILY 05/25/24 05/25/24 History HYDROcodone/APAP 7.5-325MG [[place] 7.5 mg PO DAILY 05/25/24 05/25/24 History 7.5-325] Semaglutide [Wegovy] 0.25 mg SQ WEEKLY 05/25/24 05/25/24 History Allergies Allergy/AdvReac Type Severity Reaction Status Date / Time adhesive tape Allergy Rash/Hives Verified 10/28/23 22:01 latex Allergy Rash/Hives Verified 10/28/23 22:01 topiramate [From Topamax] Allergy Body goes Verified 10/28/23 22:01 numb Physical Exam Vitals: Vital Signs Temp Pulse Resp BP Pulse Ox 05/25/24 14:41 97.7 F 82 16 122/85 99 Intake and Output 05/25/24 05/25/24 05/25/24 06:59 14:59 22:59 Other: Weight 122.016 kg Sleep Note - Sleep Data ESS Total: 13 - Sleep Note Sleep Note: Temperature: 97.7 F Pulse Rate: 82 Respiratory Rate: 16 Blood Pressure: 122/85 SpO2: 99 Height: 5 ft 6 in Weight: 122.016 kg BMI: Neck Circumference: 16.2
== END ==
LOC: 3 N SLEEP 14:24
PROVIDERS: ATTEND Internal Medicine
DX: G47.33 Obstructive sleep apnea (adult) (pediatric) (principal); R51.9 Headache, unspecified; K21.9 Gastro-esophageal reflux disease without esophagitis; E66.9 Obesity, unspecified; F12.90 Cannabis use, unspecified, uncomplicated; Z68.41 Body mass index [BMI] 40.0-44.9, adult; Z86.2 Personal history of diseases of the blood and blood-forming organs and certain disorders involving the immune mechanism; Z98.891 History of uterine scar from previous surgery; Z91.040 Latex allergy status; Z91.048 Other nonmedicinal substance allergy status; Z88.8 Allergy status to other drugs, medicaments and biological substances
CPT/HCPCS: 99211

== ENCOUNTER 2024-06-11 19:25 | Emergency (ER) | payer OTHER ==
[2024-06-11 19:35] VITALS: TEMP 97.8
--- NOTE | 2024-06-11 20:05 | XR ---
EXAMINATION TYPE: XR chest 2V DATE OF EXAM: 06/11/2024 8:02 PM COMPARISON: 09/26/2021 CLINICAL INDICATION: Female, 29 years old with history of Chest Pain, TECHNIQUE: Frontal and lateral views of the chest are obtained. FINDINGS: There is no focal air space opacity, pleural effusion, or pneumothorax seen. The cardiac silhouette size is within normal limits. The osseous structures are intact. IMPRESSION: No acute cardiopulmonary process. [facility], , 06/11/2024 8:03 PM
[2024-06-11] MEDS: SODIUM CHLORIDE 0.9% 1,000 ML IV STA (20:09)
[2024-06-11 20:24] LABS: Basophils # (A) 0.08 10*3/uL (0.00-0.10); Basophils % (A) 0.8 %; Eosinophils # (A) 0.26 10*3/uL (0.04-0.35); Eosinophils % (A) 2.5 %; HCT 39.7 % (37.2-46.3); HGB 13.1 g/dL (12.0-15.0); Lymphocytes # (A) 3.37 10*3/uL (0.90-5.00); MCH 27.6 pg (27.0-32.0); MCV 83.8 fL (80.0-97.0); Mean Platelet Volume 9.7 fL (9.5-12.2); Monocytes # (A) 0.65 10*3/uL (0.20-1.00); Monocytes % (A) 6.2 %; Neutrophils # (A) 6.14 10*3/uL (1.80-7.70); Neutrophils % (A) 58.1 %; Platelet Count 322 10*3/uL (140-440); RBC 4.74 10*6/uL (4.10-5.20); RDW 14.3 % (11.5-14.5); WBC 10.54 10*3/uL (4.50-10.00)
[2024-06-11 20:38] LABS: Partial Thromboplastin Time 24.6 sec (22.0-30.0); Prothrombin Time 10.9 sec (10.0-12.5)
[2024-06-11 20:48] LABS: ALT 19 U/L (4-34); AST 28 U/L (14-36); African American GFR (CKD) >90 (>60 ml/min/1.73 sqM); Alkaline Phosphatase 57 U/L (38-126); Anion Gap 10 mmol/L; Blood Urea Nitrogen 13 mg/dL (7-17); Calcium 9.1 mg/dL (8.4-10.2); Carbon Dioxide 19 mmol/L (22-30); Chloride 108 mmol/L (98-107); Glucose 107 mg/dL (74-99); Lipase 154 U/L (23-300); Non-African American GFR(CKD) >90 (>60 ml/min/1.73 sqM); Potassium 4.5 mmol/L (3.5-5.1); Sodium 137 mmol/L (137-145); Total Bilirubin 0.8 mg/dL (0.2-1.3); Total Protein 6.9 g/dL (6.3-8.2)
[2024-06-11 21:56] LABS: Appearance,Urine Cloudy (Clear); Bacteria,Urine Rare /hpf; Bilirubin,Urine Negative (Negative); Blood,Urine Moderate (Negative); Budding Yeast,Urine Few /hpf; Color,Urine Colorless; Glucose,Urine (UA) Negative (Negative); Ketones,Urine Negative (Negative); Leukocyte Esterase,Urine Large (Negative); Mucus,Urine Rare /hpf; Nitrite,Urine Negative (Negative); PH, Urine 6.5 (5.0-8.0); Protein,Urine Negative (Negative); RBC,Urine 3 /hpf (0-5); Specific Gravity,Urine 1.011 (1.001-1.035); Squamous Epithelial Cell,Urine 1 /hpf (0-4); Urobilinogen,Urine <2.0 mg/dL (<2.0); WBC,Urine 125 /hpf (0-5)
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
[2024-06-11 22:21] VITALS: BP 126/68; PULSE 71; RESP 16
== END 2024-06-11 22:21 | disposition home or self-care (01) ==
LOC: EC 19:25
DX: R07.89 Other chest pain (principal); N39.0 Urinary tract infection, site not specified; F17.290 Nicotine dependence, other tobacco product, uncomplicated; Z91.09 Other allergy status, other than to drugs and biological substances; Z91.040 Latex allergy status; Z88.8 Allergy status to other drugs, medicaments and biological substances
CPT/HCPCS: 36415; 71046; 80053; 81001; 81025; 83690; 83735; 84484; 85025; 85610; 85730; 93005; 96360; 99285

== ENCOUNTER 2024-07-16 18:23 | Outpatient (CLI) | payer OTHER ==
[2024-07-17 21:35] LABS: Urine Alcohol Negative (Negative); Urine Barbiturate Negative (Negative); Urine Cocaine Negative (Negative); Urine Methadone Negative (Negative); Urine Opiates Negative (Negative); Urine Phencyclidine Negative (Negative)
--- NOTE | 2024-07-20 12:27 | P.PCN ---
Description of Procedure: POLYSOMNOGRAPHY AND MSLT REPORT PROCEDURE(S)/DATE(S): Polysomnography 07/16/2024, multiple sleep latency test 07/17/2024. CLINICAL: Patient has been seen in the sleep center for evaluation of obstructive sleep apnea-hypopnea syndrome. Please see my consultation. Sleep study has been done for evaluation of patient breathing during the sleep. PROCEDURE: The standard montage for clinical polysomnography included the electroencephalogram, the electrooculogram, the mentalis surface e lectromyography and Lead II cardiography. The respiratory battery consisted of measurements of nasal/buccal air flow, pressure transducer measurements from nose, thoracic and/or abdominal effort and intercostal surface electromyography. Video monitoring has been done to check for any parasomnia events. Nocturnal oxyhemoglobin saturations were obtained by finger oximetry. Step-tadeo titration with positive airway pressure was utilized to control the respiratory events, if necessary. RESULTS: During the diagnostic sleep study sleep efficiency was normal 90.9%. Latency to sleep onset was normal 8.0 min. Sleep architecture showed stage NI was extremely short 0.4%, Delta sleep was range 18.0%, REM sleep was in high range 37.6%. Respiratory channel showed 0 obstructive apneas, 0 mixed apneas, 0 central apneas, 2 hypopneas with lowest oxygen level 91%. Total apnea hypopnea index was 0.3. Heart rate was in the range between 62 and 72, average 67. EMG showed 0 periodic limb movements per hour with 0 micro-arousals per hour. Multiple sleep latency test have been done on the following day, consisted from 5 naps, patient fell asleep on for naps. Mean sleep latency was 12.7 minutes, REM sleep have been documented in 3 naps. IMPRESSIONS: 1. No significant respiratory abnormalities have been documented during the sleep study, normal oxygenation during sleep. 2. No significant periodic limb movements have been documented. 3. Multiple sleep latency test did not confirmed pathological sleepiness. Please see other impressions from consultation PLAN: 1. I will see patient for follow-up visit to explain results of the tests. 2. Losing weight program. 3. Sleep hygiene with regular time in bed for at least 7-1/2 hours. 4. No driving if feeling sleepiness. Thank you very much for allowing me to participate in the management of your patient. Sincerely, Balbir Hammond MD, PhD, FAASM. Diplomat of [place] [employer], Sleep Medicine Board by [place] [employer] Dimensional Integration Engineer [facility] [place] cc: Anabel Sinclair MD
--- NOTE | 2024-07-20 17:16 | P.PCN ---
Description of Procedure: POLYSOMNOGRAPHY AND MSLT REPORT PROCEDURE(S)/DATE(S): Polysomnography 07/16/2024, multiple sleep latency test 07/17/2024. CLINICAL: Patient has been seen in the sleep center for evaluation of obstructive sleep apnea-hypopnea syndrome. Please see my consultation. Sleep study has been done for evaluation of patient breathing during the sleep. PROCEDURE: The standard montage for clinical polysomnography included the electroencephalogram, the electrooculogram, the mentalis surface e lectromyography and Lead II cardiography. The respiratory battery consisted of measurements of nasal/buccal air flow, pressure transducer measurements from nose, thoracic and/or abdominal effort and intercostal surface electromyography. Video monitoring has been done to check for any parasomnia events. Nocturnal oxyhemoglobin saturations were obtained by finger oximetry. Step-tadeo titration with positive airway pressure was utilized to control the respiratory events, if necessary. RESULTS: During the diagnostic sleep study sleep efficiency was normal 90.9%. Latency to sleep onset was normal 8.0 min. Sleep architecture showed stage NI was extremely short 0.4%, Delta sleep was range 18.0%, REM sleep was in high range 37.6%. Respiratory channel showed 0 obstructive apneas, 0 mixed apneas, 0 central apneas, 2 hypopneas with lowest oxygen level 91%. Total apnea hypopnea index was 0.3. Heart rate was in the range between 62 and 72, average 67. EMG showed 0 periodic limb movements per hour with 0 micro-arousals per hour. Multiple sleep latency test have been done on the following day, consisted from 5 naps, patient fell asleep on for naps. Patient fell asleep on all naps. Mean sleep latency was 3.7 minutes, REM sleep have been documented in 3 naps. IMPRESSIONS: 1. No significant respiratory abnormalities have been documented during the sleep study, normal oxygenation during sleep. 2. No significant periodic limb movements have been documented. 3. Multiple sleep latency test confirmed pathological sleepiness with 3 sleep onset REM periods which are consistent with diagnosis of narcolepsy. Please see other impressions from consultation PLAN: 1. I will see patient for follow-up visit to explain results of the tests and recommendations. 2. Losing weight program. 3. Sleep hygiene with regular time in bed for at least 7-1/2 hours. 4. No driving if feeling sleepiness. Thank you very much for allowing me to participate in the management of your patient. Sincerely, Balbir Hammond MD, PhD, FAASM. Diplomat of [place] [employer], Sleep Medicine Board by [place] [employer] Oil Deliverer of [facility] [place] cc: Anabel Sinclair MD
== END 2024-07-17 17:35 | disposition home or self-care (01) ==
LOC: 3 N SLEEP 18:23
PROVIDERS: ATTEND Internal Medicine
DX: G47.33 Obstructive sleep apnea (adult) (pediatric) (principal); F12.90 Cannabis use, unspecified, uncomplicated; Z91.048 Other nonmedicinal substance allergy status; Z91.040 Latex allergy status; Z88.8 Allergy status to other drugs, medicaments and biological substances
CPT/HCPCS: 80306; 95805; 95810

== ENCOUNTER 2024-08-25 15:06 | Emergency (ER) | payer OTHER ==
[2024-08-25 15:18] VITALS: RESP 18; TEMP 98.4
[2024-08-25] MEDS: KETOROLAC 15 MG/ML 1 ML VIAL IM STA (15:45)
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
[2024-08-25 17:36] VITALS: BP 126/75; PULSE 64
== END 2024-08-25 17:35 | disposition home or self-care (01) ==
LOC: EC 15:06
DX: S92.301A Fracture of unspecified metatarsal bone(s), right foot, initial encounter for closed fracture (principal); F17.290 Nicotine dependence, other tobacco product, uncomplicated; Z91.09 Other allergy status, other than to drugs and biological substances; Z91.040 Latex allergy status; Z88.8 Allergy status to other drugs, medicaments and biological substances; V49.9XXA Car occupant (driver) (passenger) injured in unspecified traffic accident, initial encounter
CPT/HCPCS: 73630; 99284; 96372; 29515; J1885

== ENCOUNTER 2024-09-04 22:08 | Emergency (ER) | payer OTHER ==
[2024-09-04 22:57] VITALS: BP 116/83; PULSE 99; RESP 16; TEMP 98.3
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
--- NOTE | 2024-09-05 00:06 | XR ---
EXAM: XR Right Foot Complete, 3 or More Views CLINICAL HISTORY: ITS.REASON XR Reason: pain, recent 5th mt fracture TECHNIQUE: Frontal, lateral and oblique views of the right foot. COMPARISON: No relevant prior studies available. FINDINGS: Bones/joints: Spiral fracture mid to distal 5th metatarsal. No other acute fracture. No dislocation. Soft tissues: Unremarkable. No radiopaque foreign body. IMPRESSION: 1. Spiral fracture left 5th metatarsal.
[2024-09-05] MEDS: ACET/COD 300 MG/30 MG STARTER PACK TAB BTL PO STA (00:31)
== END 2024-09-05 00:32 | disposition home or self-care (01) ==
LOC: EC 22:08
CPT/HCPCS: 99283